=== PATIENT | female | born 1940 | race Caucasian/White ===

== ENCOUNTER 2017-10-05 18:33 | Emergency (ER) | payer MEDICARE ==
--- NOTE | 2017-10-05 19:39 | RAD ---
HISTORY: Chest pain COMPARISONS: November 01, 2011, CTA dated October 03, 2017 VIEWS: 1: frontal portable view of the chest at 7:24 PM FINDINGS: LINES AND TUBES: None. CARDIOMEDIASTINAL SILHOUETTE: The cardiomediastinal silhouette is normal for portable technique. PLEURA: The costophrenic angles are sharp. No pleural abnormalities are noted. LUNG PARENCHYMA: The lungs are clear. ABDOMEN: The upper abdomen is clear. There is no subphrenic gas. BONES AND SOFT TISSUES: No bone or soft tissue abnormalities are noted. IMPRESSION: NO ACTIVE CARDIOPULMONARY DISEASE.
[2017-10-05 19:44] LABS: ABS Basophils 0 10^3/ul (0-0.2); ABS Eosinophils 0.4 10^3/ul (0-0.6); ABS Lymphocytes 0.8 10^3/ul (1.0-4.8); ABS Monocytes 0.5 10^3/ul (0-0.8); ABS Neutrophils 1.5 10^3/ul (1.5-7.7); ABS Nucleated RBC 0 10^3/ul; Eosinophil % 11.4 % (0-6); Hematocrit 33 % (35-47); Hemoglobin 10.7 g/dl (12.0-16.0); Lymphocyte % 23.6 % (25-47); Mean Corpuscular HGB Conc 33 g/dl (31-36); Mean Corpuscular Hemoglobin 29 pg (27-31); Mean Corpuscular Volume 88 fL (80-97); Mean Platelet Volume 11 um3 (7.4-10.4); Nucleated Red Blood Cells % 0.3; Platelet Count 56 10^3/ul (150-450); Red Blood Count 3.74 10^6/ul (4.0-5.4); Red Cell Distribution Width 15 % (10.5-15); White Blood Count 3.2 10^3/ul (3.5-10.8)
[2017-10-05 19:47] LABS: EGFR Non-African American 93.3 (>60)
--- NOTE | 2017-10-05 20:34 | ED ---
Isabell Briseno Abhishek, scribed for Aldo Robin MD on 10/05/17 at 1904 . Shortness of Breath - HPI Summary HPI Summary: This patient is a 76 year old F presenting to [facility] accompanied by_ with a chief complaint of SOB since one week ago. PT was in theher PCPs office. The pt states her oxygen levels would drop and rise. PT received a CT with IV contrast. The patient rates the pain 0/10 in severity. Symptoms aggravated by ambulation. Symptoms alleviated by position and sitting down. Medications reviewed and reported. Allergies reviewed and reported. Patient reports decreased appetite, diarrhea, burning sensation in the legs, cough nonproductive, and wheezing. Patient denies fever. - History of Current Complaint Chief Complaint: EDChestPainROMI Time Seen by Provider: 10/05/17 18:52 Hx Obtained From: Patient Onset/Duration: Lasting Weeks Timing: Constant Current Severity: Moderate Dyspnea At: Rest Related History: Obesity - Risk Factors Pulmonary Embolism: Negative Cardiac: Negative, Hypertension - chest is limited in ability to inspire, no real chest pain to speak of . symptoms constant - Allergy/Home Medications Allergies/Adverse Reactions: Allergies Allergy/AdvReac Type Severity Reaction Status Date / Time clindamycin Allergy Intermediate Hives Verified 10/05/17 19:08 Penicillins Allergy Intermediate Hives Verified 10/05/17 19:08 PMH/Surg Hx/FS Hx/Imm Hx Endocrine/Hematology History: Reports: Hx Systemic Lupus Erythematosus Denies: Hx Anticoagulant Therapy, Hx Diabetes Cardiovascular History: Reports: Hx Hypercholesterolemia, Hx Hypertension, Other Cardiovascular Problems/Disorders - Hx HTN Denies: Hx Pacemaker/ICD Respiratory History: Reports: Hx Pneumonia - x2 last 6 weeks GI History: Reports: Other GI Disorders - Hx diverticulitis History: Denies: Hx Renal Disease Musculoskeletal History: Comment Only: Hx Rheumatoid Arthritis - TONY Sensory History: Reports: Hx Contacts or Glasses Denies: Hx Hearing Aid Opthamlomology History: Reports: Hx Contacts or Glasses Psychiatric History: Denies: Hx Panic Disorder - Cancer History Cancer Type, Location and Year: Multiple Myeloma Hx Chemotherapy: No Hx Radiation Therapy: No - Surgical History Surgery Procedure, Year, and Place: Hysterectomy , varicose vein surgery . CATARACTS Infectious Disease History: No Infectious Disease History: Reports: Hx Shingles - year ago, receiving medication currently, no open areas Denies: Traveled Outside the [place] in Last 30 Days - Social History Alcohol Use: None Substance Use Type: Reports: None Smoking Status (MU): Former Smoker Type: Cigarettes Amount Used/How Often: 1 PPD Length of Time of Smoking/Using Tobacco: 50 Years Have You Smoked in the Last Year: No Review of Systems Negative: Fever Eyes: Negative ENT: Negative Cardiovascular: Negative Respiratory: Other - wheezing Positive: Shortness Of Breath, Cough - nonproductive Gastrointestinal: Other - decreased appetite, Positive: Diarrhea Genitourinary: Negative Musculoskeletal: Other - burning sensation in the leg Skin: Negative Neurological: Negative Psychological: Normal All Other Systems Reviewed And Are Negative: Yes Physical Exam - Summary Physical Exam Summary: Appearance: Well-appearing, Well-nourished, Mild Pallor, No acute distress Skin: Warm, Dry, No rash Eyes: Normal, PERRL, EOMI, Sclera enteric ENT: Normal Neck: Supple, nontender, No JVD Respiratory: Clear to auscultation Cardiovascular: S1, S2, no murmur, no rub, no gallop Abdomen: Soft, nontender, no organomegaly Bowel sounds: Present Musculoskeletal: Normal, Strength/ROM Intact, no edema, pulses symmetrical, Extremities without edema Neurological: Normal, A&Ox3, cranial nerves II-XII WNL, follows commands, gait not tested, sensation intact to pin and light touch Psychiatric: affect normal, behavior appropriate, dressed appropriately, judgment intact Triage Information Reviewed: Yes Vital Signs On Initial Exam: Initial Vitals Temp Pulse Resp BP Pulse Ox 97.4 F 56 20 165/54 100 10/05/17 18:39 10/05/17 18:39 10/05/17 18:39 10/05/17 18:39 10/05/17 18:39 Vital Signs Reviewed: Yes Diagnostics - Vital Signs Vital Signs Temp Pulse Resp BP Pulse Ox 10/05/17 18:39 97.4 F 56 20 165/54 100 - Laboratory Lab Results: Lab Results 10/05/17 10/05/17 Range/Units 19:16 19:16 WBC 3.2 L (3.5-10.8) 10^3/ul RBC 3.74 L (4.0-5.4) 10^6/ul Hgb 10.7 L (12.0-16.0) g/dl Hct 33 L (35-47) % MCV 88 (80-97) fL MCH 29 (27-31) pg MCHC 33 (31-36) g/dl RDW 15 (10.5-15) % Plt Count 56 L (150-450) 10^3/ul MPV 11 H (7.4-10.4) um3 Neut % (Auto) 48.4 (38-83) % Lymph % (Auto) 23.6 L (25-47) % [place] % (Auto) 15.6 H (0-7) % Eos % (Auto) 11.4 H (0-6) % Baso % (Auto) 1.0 (0-2) % Absolute Neuts (auto) 1.5 (1.5-7.7) 10^3/ul Absolute Lymphs (auto) 0.8 L (1.0-4.8) 10^3/ul Absolute Monos (auto) 0.5 (0-0.8) 10^3/ul Absolute Eos (auto) 0.4 (0-0.6) 10^3/ul Absolute Basos (auto) 0 (0-0.2) 10^3/ul Absolute Nucleated RBC 0 10^3/ul Nucleated RBC % 0.3 Sodium 132 L (133-145) mmol/L Potassium 3.9 (3.5-5.0) mmol/L Chloride 105 (101-111) mmol/L Carbon Dioxide 23 (22-32) mmol/L Anion Gap 4 (2-11) mmol/L BUN 9 (6-24) mg/dL Creatinine 0.62 (0.51-0.95) mg/dL Est GFR ( Amer) 120.0 (>60) Est GFR (Non-Af Amer) 93.3 (>60) BUN/Creatinine Ratio 14.5 (8-20) Glucose 99 (70-100) mg/dL Calcium 7.6 L (8.6-10.3) mg/dL Total Bilirubin 0.40 (0.2-1.0) mg/dL AST 12 L (13-39) U/L ALT 16 (7-52) U/L Alkaline Phosphatase 61 (34-104) U/L Troponin I 0.00 (<0.04) ng/mL Total Protein 6.1 L (6.4-8.9) g/dL Albumin 2.9 L (3.2-5.2) g/dL Globulin 3.2 (2-4) g/dL Albumin/Globulin Ratio 0.9 L (1-3) Result Diagrams: 10/05/17 19:16 10/05/17 19:16 Lab Statement: Any lab studies that have been ordered have been reviewed, and results considered in the medical decision making process. - Radiology Chest X-ray Radiology Interpretation Completed By: Radiologist - CXR reveals, per radiologist, NO ACTIVE CARDIOPULMONARY DISEASE. ED physician has reviewed this radiology report and agrees. - EKG 1901 EKG Rhythm: Sinus Bradycardia - 56 bpm EKG Interpretation: An EKG reveals LBBB sinus bradycardia at 56 bpm (1901) Course/Dx - Course Course Of Treatment: The pt is a 76 y/o female with a chief complaint of SOB. Pt was BIBA and states that she has had symptoms for one week. She previously saw her PCP and received a CT scan.Symptoms aggravated by ambulation. Symptoms alleviated by position and sitting down. Medications reviewed and reported. Allergies reviewed and reported. Patient reports decreased appetite, diarrhea, burning sensation in the legs, cough nonproductive, and wheezing. Patient denies fever. In the [facility] the patient received an EKG and Chest X-ray. The pt will be discharged home. The dx will be anxiety and depression. - Diagnoses Provider Diagnoses: Anxiety about health Discharge - Discharge Plan Condition: Stable Disposition: HOME Prescriptions: clonazePAM [Clonazepam] 0.5 mg PO Q8HR PRN #30 tablet MDD 3 PRN Reason: Agitation/Anxiety Patient Education Materials: Anxiety (ED) Referrals: Aurelaino Orozco MD [Primary Care Provider] - The documentation as recorded by the Isabell nava Abhishek accurately reflects the service I personally performed and the decisions made by me, Aldo Robin MD.
[2017-10-05] MEDS ORDERED: clonazePAM TAB(*) 0.5 MG PO ONE (20:57)
[2017-10-05 21:10] VITALS: BP 144/56
== END 2017-10-05 21:11 | disposition home or self-care (01) ==
LOC: ED 18:33
DX: F41.8 Other specified anxiety disorders (principal); R06.02 Shortness of breath; Z87.891 Personal history of nicotine dependence; Z88.3 Allergy status to other anti-infective agents; Z88.0 Allergy status to penicillin
CPT/HCPCS: 36415; 71045; 80053; 84484; 85025; 85810; 93005; 99283; A9270-GY

== ENCOUNTER 2017-11-07 19:55 | Emergency (ER) | payer MEDICARE ==
[2017-11-07] MEDS ORDERED: Aspirin 81 mg CHEW TAB* 81 MG TAB.CHEW PO ONE (20:13)
[2017-11-07] MEDS ORDERED: NS 0.9% 1000 ML* 1,000 ML IV ONE (20:13)
[2017-11-07] MEDS ORDERED: Famotidine TAB* 20 MG PO ONE (20:15)
[2017-11-07] MEDS ORDERED: Ondansetron INJ* 2 MG/ML VIAL IV ONE (20:15)
[2017-11-07 20:53] LABS: ABS Basophils 0.1 10^3/ul (0-0.2); ABS Eosinophils 0 10^3/ul (0-0.6); ABS Lymphocytes 1.1 10^3/ul (1.0-4.8); ABS Monocytes 1.2 10^3/ul (0-0.8); ABS Neutrophils 2.3 10^3/ul (1.5-7.7); ABS Nucleated RBC 0 10^3/ul; Eosinophil % 0.5 % (0-6); Hematocrit 29 % (35-47); Hemoglobin 9.9 g/dl (12.0-16.0); Lymphocyte % 23.9 % (25-47); Mean Corpuscular HGB Conc 34 g/dl (31-36); Mean Corpuscular Hemoglobin 30 pg (27-31); Mean Corpuscular Volume 89 fL (80-97); Nucleated Red Blood Cells % 0; Platelet Count 234 10^3/ul (150-450); Red Blood Count 3.31 10^6/ul (4.0-5.4); Red Cell Distribution Width 16 % (10.5-15); White Blood Count 4.7 10^3/ul (3.5-10.8)
[2017-11-07 21:09] LABS: INR 1.04 (0.77-1.02)
--- NOTE | 2017-11-07 21:16 | RAD ---
Indication: Chest pain in the sternal region. Weakness. History of multiple myeloma. Comparison: October 05, 2017 Technique: Upright AP 2056 hours Report: No focal pulmonary lesion, compelling alveolar consolidation, pleural effusion, pneumothorax. Mild cardiomegaly. Unremarkable central pulmonary vasculature and mediastinal contours. IMPRESSION: Mild cardiomegaly. No compelling evidence for pulmonary edema.
[2017-11-07 21:23] LABS: EGFR Non-African American 111.9 (>60)
[2017-11-07] MEDS ORDERED: hydrALAZINE IV* 20 MG/ML VIAL IV SLOW PU ONE (21:38)
[2017-11-07 22:39] VITALS: BP 133/56
--- NOTE | 2017-11-08 02:26 | ED ---
Griffin Briseno Gabriel, scribed for Donavan Hughes MD on 11/07/17 at 2013 . HPI Chest Pain - HPI Summary HPI Summary: This patient is a 76 year old F presenting to [facility] with a chief complaint of left sided CP that began 12 hours ago. Pain began at rest. The patient rates the pain 5/10 in severity. Patient reports nausea, decreased appetite due to chemo, low graded fever of 99, ABD pain, cough, weakness, SOB, and diarrhea. Patient denies vomiting. Saw cardiology this week due to her oncologists suggestion. Pt had her last chemo treatment a week ago for her multiple myeloma. She has chronic hip pain due to this. History of peptic ulcer disease. Pt is just finishing her nucynta 50 mg. - History of Current Complaint Chief Complaint: EDChestPainROMI Time Seen by Provider: 11/07/17 20:03 Hx Obtained From: Patient Onset/Duration: Still Present Timing: Constant, Lasting Hours - 12 Initial Severity: Moderate Current Severity: Moderate Pain Intensity: 5 Pain Scale Used: 0-10 Numeric Chest Pain Location: Left Anterior Chest Pain Radiates: No Associated Signs and Symptoms: Positive: Negative - vomiting,, Other: - nausea , decreased appetite due to chemo, low graded fever of 99, - Allergy/Home Medications Allergies/Adverse Reactions: Allergies Allergy/AdvReac Type Severity Reaction Status Date / Time clindamycin Allergy Intermediate Hives Verified 10/05/17 19:08 Penicillins Allergy Intermediate Hives Verified 10/05/17 19:08 PMH/Surg Hx/FS Hx/Imm Hx Endocrine/Hematology History: Reports: Hx Systemic Lupus Erythematosus Denies: Hx Anticoagulant Therapy, Hx Diabetes Cardiovascular History: Reports: Hx Hypercholesterolemia, Hx Hypertension, Other Cardiovascular Problems/Disorders - Hx HTN Denies: Hx Pacemaker/ICD Respiratory History: Reports: Hx Pneumonia - x2 last 6 weeks GI History: Reports: Other GI Disorders - Hx diverticulitis History: Denies: Hx Renal Disease Musculoskeletal History: Comment Only: Hx Rheumatoid Arthritis - TONY Sensory History: Reports: Hx Contacts or Glasses Denies: Hx Hearing Aid Opthamlomology History: Reports: Hx Contacts or Glasses Psychiatric History: Denies: Hx Panic Disorder - Cancer History Cancer Type, Location and Year: Multiple Myeloma Hx Chemotherapy: No Hx Radiation Therapy: No - Surgical History Surgery Procedure, Year, and Place: Hysterectomy 1970s, varicose vein surgery . CATARACTS - Immunization History Date of Tetanus Vaccine: utd Date of Influenza Vaccine: fall 2016 Infectious Disease History: No Infectious Disease History: Reports: Hx Shingles - year ago, receiving medication currently, no open areas Denies: Traveled Outside the [place] in Last 30 Days - Family History Known Family History: Positive: Hypertension Negative: Respiratory Disease, Seizure Disorder - Social History Lives: With Family Alcohol Use: None Substance Use Type: Reports: None Smoking Status (MU): Former Smoker Type: Cigarettes Amount Used/How Often: 1 PPD Length of Time of Smoking/Using Tobacco: 50 Years Have You Smoked in the Last Year: No Review of Systems Positive: Fever, Other - decreased appetite Positive: Chest Pain Positive: Shortness Of Breath, Cough Positive: Abdominal Pain, Diarrhea, Nausea. Negative: Vomiting Positive: Weakness All Other Systems Reviewed And Are Negative: Yes Physical Exam - Summary Physical Exam Summary: Appearance: Well appearing, no pain distress Skin: warm, dry, reflects adequate perfusion Head/face: normal Eyes: EOMI, SCOTT ENT: mucus membranes are tacky Neck: supple, non-tender Respiratory: CTA, breath sounds present Cardiovascular: RRR, pulses symmetrical Abdomen: mild epigastria pain soft Bowel Sounds: present Musculoskeletal: mild TTP in anterior chest wall strength/ROM intact, 1+ edema in RLE, left ankle scar, 1-2+ edema in LLE. Neuro: normal, sensory motor intact, A&Ox3 Triage Information Reviewed: Yes Vital Signs On Initial Exam: Initial Vitals Temp Pulse Resp BP Pulse Ox 98.8 F 66 20 161/59 97 11/07/17 19:57 11/07/17 19:57 11/07/17 19:57 11/07/17 19:57 11/07/17 19:57 Vital Signs Reviewed: Yes Diagnostics - Vital Signs Vital Signs Temp Pulse Resp BP Pulse Ox 11/07/17 19:57 98.8 F 66 20 161/59 97 - Laboratory Lab Results: Lab Results 11/07/17 11/07/17 11/07/17 Range/Units 20:20 20:20 20:20 WBC 4.7 (3.5-10.8) 10^3/ul RBC 3.31 L (4.0-5.4) 10^6/ul Hgb 9.9 L (12.0-16.0) g/dl Hct 29 L (35-47) % MCV 89 (80-97) fL MCH 30 (27-31) pg MCHC 34 (31-36) g/dl RDW 16 H (10.5-15) % Plt Count 234 (150-450) 10^3/ul MPV 8.0 (7.4-10.4) um3 Neut % (Auto) 48.0 (38-83) % Lymph % (Auto) 23.9 L (25-47) % [place] % (Auto) 25.2 H (0-7) % Eos % (Auto) 0.5 (0-6) % Baso % (Auto) 2.4 H (0-2) % Absolute Neuts (auto) 2.3 (1.5-7.7) 10^3/ul Absolute Lymphs (auto) 1.1 (1.0-4.8) 10^3/ul Absolute Monos (auto) 1.2 H (0-0.8) 10^3/ul Absolute Eos (auto) 0 (0-0.6) 10^3/ul Absolute Basos (auto) 0.1 (0-0.2) 10^3/ul Absolute Nucleated RBC 0 10^3/ul Nucleated RBC % 0 INR (Anticoag Therapy) 1.04 H (0.77-1.02) APTT 29.7 (26.0-36.3) seconds Sodium 136 L (139-145) mmol/L Potassium 3.6 (3.5-5.0) mmol/L Chloride 104 (101-111) mmol/L Carbon Dioxide 26 (22-32) mmol/L Anion Gap 6 (2-11) mmol/L BUN 8 (6-24) mg/dL Creatinine 0.53 (0.51-0.95) mg/dL Est GFR ( Amer) 143.9 (>60) Est GFR (Non-Af Amer) 111.9 (>60) BUN/Creatinine Ratio 15.1 (8-20) Glucose 94 (70-100) mg/dL Lactic Acid (0.5-2.0) mmol/L Calcium 8.1 L (8.6-10.3) mg/dL Total Bilirubin 0.60 (0.2-1.0) mg/dL AST 11 L (13-39) U/L ALT 7 (7-52) U/L Alkaline Phosphatase 65 (34-104) U/L Total Creatine Kinase 29 (10-223) U/L Troponin I 0.01 (<0.04) ng/mL B-Natriuretic Peptide ( - 100) pg/mL Total Protein 5.5 L (6.4-8.9) g/dL Albumin 3.2 (3.2-5.2) g/dL Globulin 2.3 (2-4) g/dL Albumin/Globulin Ratio 1.4 (1-3) Lipase 16 (11.0-82.0) U/L TSH 3.39 (0.34-5.60) mcIU/mL 11/07/17 11/07/17 Range/Units 20:20 20:26 WBC (3.5-10.8) 10^3/ul RBC (4.0-5.4) 10^6/ul Hgb (12.0-16.0) g/dl Hct (35-47) % MCV (80-97) fL MCH (27-31) pg MCHC (31-36) g/dl RDW (10.5-15) % Plt Count (150-450) 10^3/ul MPV (7.4-10.4) um3 Neut % (Auto) (38-83) % Lymph % (Auto) (25-47) % [place] % (Auto) (0-7) % Eos % (Auto) (0-6) % Baso % (Auto) (0-2) % Absolute Neuts (auto) (1.5-7.7) 10^3/ul Absolute Lymphs (auto) (1.0-4.8) 10^3/ul Absolute Monos (auto) (0-0.8) 10^3/ul Absolute Eos (auto) (0-0.6) 10^3/ul Absolute Basos (auto) (0-0.2) 10^3/ul Absolute Nucleated RBC 10^3/ul Nucleated RBC % INR (Anticoag Therapy) (0.77-1.02) APTT (26.0-36.3) seconds Sodium (139-145) mmol/L Potassium (3.5-5.0) mmol/L Chloride (101-111) mmol/L Carbon Dioxide (22-32) mmol/L Anion Gap (2-11) mmol/L BUN (6-24) mg/dL Creatinine (0.51-0.95) mg/dL Est GFR ( Amer) (>60) Est GFR (Non-Af Amer) (>60) BUN/Creatinine Ratio (8-20) Glucose (70-100) mg/dL Lactic Acid 0.6 (0.5-2.0) mmol/L Calcium (8.6-10.3) mg/dL Total Bilirubin (0.2-1.0) mg/dL AST (13-39) U/L ALT (7-52) U/L Alkaline Phosphatase (34-104) U/L Total Creatine Kinase (10-223) U/L Troponin I (<0.04) ng/mL B-Natriuretic Peptide 289 H ( - 100) pg/mL Total Protein (6.4-8.9) g/dL Albumin (3.2-5.2) g/dL Globulin (2-4) g/dL Albumin/Globulin Ratio (1-3) Lipase (11.0-82.0) U/L TSH (0.34-5.60) mcIU/mL Result Diagrams: 11/07/17 20:20 18 20:20 Lab Statement: Any lab studies that have been ordered have been reviewed, and results considered in the medical decision making process. - Radiology CXR Radiology Interpretation Completed By: Radiologist - Mild cardiomegaly. No compelling evidence for pulmonary edema. Dr. Hughes has reviewed this report. - EKG 20:01 Cardiac Rate: NL EKG Rhythm: Sinus Rhythm - at [address] Segment: Non-Specific EKG Interpretation: nml axis, incomplete LBBB Re-Evaluation - Re-Evaluation First Eval Re-Evaluation Time: 21:41 Change: Improved Comment: The patient is feeling better. I discussed possible admission with the patient. Second Eval Re-Evaluation Time: 21:50 Change: Improved Comment: The patient feels better and would like to go home. Chest Pain Course/Dx - Course Course Of Treatment: Pt with mult myeloma 1wk out from chemo. Not eating/ drinking well due to nausea. CP is easily reproducible with palpation. DDimer neg. Pt hydrated and nausea tx and she feels immensely better. I have offered her admission which she refused. HEART score 3. I feel this is most likely a complication of her chemo and more related to her mild dehydration and the associated nausea. Will tx with pepcid and zofran prn. F/U closely pmd/oncology. - Chest Pain Differential Diagnosis/HQI/PQRI: Acute MA, ACS, Angina, CHF, GI Disease, Lower Respiratory Infection, Pulmonary Edema, Pulmonary Embolism - Diagnoses Provider Diagnoses: Atypical chest pain, Dehydration, Multiple myeloma, Chemotherapy-induced nausea Discharge - Sign-Out/Discharge Documenting (check all that apply): Discharge - Discharge Plan Condition: Good Disposition: HOME Prescriptions: Famotidine TAB* [Pepcid 20 MG TAB*] 20 mg PO BID #30 tab Ondansetron ODT TAB* [Zofran 4 MG Odt TAB*] 4 mg PO Q8H PRN #12 tab.odt PRN Reason: Nausea Patient Education Materials: Chest Pain (ED) Referrals: Aureliano Orozco MD [Primary Care Provider] - Fran Hernandez MD [Medical Doctor] - Additional Instructions: Drink plenty of water -- stay well hydrated. Return if repeat chest pain, worse , new symptoms or other concerns as discussed. - Billing Disposition and Condition Condition: GOOD Disposition: HOME The documentation as recorded by the Griffin nava Gabriel accurately reflects the service I personally performed and the decisions made by me, Donavan Hughes MD.
== END 2017-11-07 22:39 | disposition home or self-care (01) ==
LOC: ED 19:55
DX: R07.89 Other chest pain (principal); E86.0 Dehydration; C90.00 Multiple myeloma not having achieved remission; R11.0 Nausea; R50.9 Fever, unspecified; I51.7 Cardiomegaly; I44.7 Left bundle-branch block, unspecified; M32.9 Systemic lupus erythematosus, unspecified; I10 Essential (primary) hypertension; E78.00 Pure hypercholesterolemia, unspecified; K57.92 Diverticulitis of intestine, part unspecified, without perforation or abscess without bleeding; Z88.1 Allergy status to other antibiotic agents; Z88.0 Allergy status to penicillin; Z87.891 Personal history of nicotine dependence
CPT/HCPCS: 36415; 71045; 80053; 82550; 83605; 83690; 83880; 84443; 84484; 85025; 85610; 85730; 87040; 93005; 96374; 96375; 99283; A9270-GY; J0360; J2405

== ENCOUNTER 2017-11-08 05:14 | Observation (INO) | payer MEDICARE ==
[2017-11-08] MEDS ORDERED: Aspirin 81 mg CHEW TAB* 81 MG TAB.CHEW PO ONE (05:48)
[2017-11-08] MEDS ORDERED: Nitroglycerin TAB 0.4 MG* 0.4 MG TAB SL ONE (05:48)
[2017-11-08] MEDS ORDERED: Labetalol IV* 5 MG/ML 20 ML VIAL IV PUSH ONE (05:48)
--- NOTE | 2017-11-08 07:14 | ED ---
Griffin Briseno Gabriel, scribed for Donavan Hughes MD on 11/08/17 at 0605 . HPI Chest Pain - HPI Summary HPI Summary: This patient is a 76 year old F presenting to [facility] accompanied by her with a chief complaint of CP. Pt went to bed and slept for an hour when she awoke she still had chest pressure . The patient rates the pain 5/10 in severity. Patient reports nausea. Patient denies SOB, neck pain, jaw pain, and vomiting. Pt was seen in the ED earlier tonight. The patient was offered admission earlier but stated she felt well enough to return home. - History of Current Complaint Chief Complaint: EDChestPainROMI Time Seen by Provider: 11/08/17 05:35 Hx Obtained From: Patient Onset/Duration: Still Present Timing: Constant Initial Severity: Moderate Current Severity: Moderate Pain Intensity: 5 Pain Scale Used: 0-10 Numeric Chest Pain Location: Diffuse - Allergy/Home Medications Allergies/Adverse Reactions: Allergies Allergy/AdvReac Type Severity Reaction Status Date / Time clindamycin Allergy Intermediate Hives Verified 11/08/17 05:33 Penicillins Allergy Intermediate Hives Verified 11/08/17 05:33 PMH/Surg Hx/FS Hx/Imm Hx Endocrine/Hematology History: Reports: Hx Systemic Lupus Erythematosus Denies: Hx Anticoagulant Therapy, Hx Diabetes Cardiovascular History: Reports: Hx Hypercholesterolemia, Hx Hypertension, Other Cardiovascular Problems/Disorders - Hx HTN Denies: Hx Pacemaker/ICD Respiratory History: Reports: Hx Pneumonia - x2 last 6 weeks GI History: Reports: Other GI Disorders - Hx diverticulitis History: Denies: Hx Renal Disease Musculoskeletal History: Comment Only: Hx Rheumatoid Arthritis - TONY Sensory History: Reports: Hx Contacts or Glasses Denies: Hx Hearing Aid Opthamlomology History: Reports: Hx Contacts or Glasses Psychiatric History: Denies: Hx Panic Disorder - Cancer History Cancer Type, Location and Year: Multiple Myeloma Hx Chemotherapy: No Hx Radiation Therapy: No - Surgical History Surgery Procedure, Year, and Place: Hysterectomy , varicose vein surgery . CATARACTS - Immunization History Date of Tetanus Vaccine: utd Date of Influenza Vaccine: fall 2016 Infectious Disease History: No Infectious Disease History: Reports: Hx Shingles - year ago, receiving medication currently, no open areas Denies: Traveled Outside the [place] in Last 30 Days - Family History Known Family History: Positive: Hypertension Negative: Respiratory Disease, Seizure Disorder - Social History Lives: With Family Alcohol Use: None Substance Use Type: Reports: None Hx Tobacco Use: No Smoking Status (MU): Former Smoker Type: Cigarettes Amount Used/How Often: 1 PPD Length of Time of Smoking/Using Tobacco: 50 Years Have You Smoked in the Last Year: No Review of Systems Positive: Chest Pain Negative: Shortness Of Breath Positive: Nausea. Negative: Vomiting Musculoskeletal: Negative - neck pain All Other Systems Reviewed And Are Negative: Yes Physical Exam - Summary Physical Exam Summary: Appearance: Well appearing, no pain distress Skin: warm, dry, reflects adequate perfusion Head/face: normal Eyes: EOMI, SCOTT ENT: normal Neck: supple, non-tender Respiratory: CTA, breath sounds present Cardiovascular: RRR, pulses symmetrical, no murmur Abdomen: non-tender, soft Bowel Sounds: present Musculoskeletal: normal, strength/ROM intact Neuro: normal, sensory motor intact, A&Ox3 Triage Information Reviewed: Yes Vital Signs On Initial Exam: Initial Vitals Temp Pulse Resp BP Pulse Ox 98.2 F 71 18 186/84 96 11/08/17 05:32 11/08/17 05:32 11/08/17 05:32 11/08/17 05:32 11/08/17 05:32 Vital Signs Reviewed: Yes Diagnostics - Vital Signs Vital Signs Temp Pulse Resp BP Pulse Ox 11/08/17 05:32 98.2 F 71 18 186/84 96 - Laboratory Lab Statement: Any lab studies that have been ordered have been reviewed, and results considered in the medical decision making process. - EKG 0532 Cardiac Rate: NL EKG Rhythm: Sinus Rhythm - at [address] Segment: Non-Specific EKG Interpretation: nml axis, incomplete LBBB, prolonged Qtc EKG Comparison: No Significant Change - unchanged from earlier today Chest Pain Course/Dx - Course Course Of Treatment: pt with 2nd presentation of the night. CP described as pressure and HTN. No SOB or hypoxia. O2 sat 98% RA currently. Has risk factor of active CA. Pt had wished to d/c earlier in my shift. Returns, plan to admit. Labs pending. Sign out to Dr. Stack. - Diagnoses Provider Diagnoses: Multiple myeloma, Chest pain - Provider Notifications Discussed Care Of Patient With: Archie Dukes Time Discussed With Above Provider: 06:50 Instructed by Provider To: Admit As Inpatient - He states that usually Dr. Jennings will admit his patients but if he does not then Dr. Dukes will accept the patient for admission. Discharge - Sign-Out/Discharge Documenting (check all that apply): Sign-Out Patient Signing out patient TO: Ramiro Stack - awaiting blood work - Discharge Plan Condition: Fair Discharge Disposition Comment: Sign out to Dr Stack at 7am Referrals: Aureliano Orozco MD [Primary Care Provider] - - Billing Disposition and Condition Condition: FAIR The documentation as recorded by the Griffin nava Gabriel accurately reflects the service I personally performed and the decisions made by me, Donavan Hughes MD.
[2017-11-08] MEDS ORDERED: Ondansetron INJ* 2 MG/ML VIAL IV ONE (08:11)
[2017-11-08] MEDS ORDERED: Ondansetron INJ* 2 MG/ML VIAL ONE (08:12)
[2017-11-08] MEDS ORDERED: Iodixanol* (CONTRAST) 320 MG/ML 100 ML SDV IV ONE (08:17)
--- NOTE | 2017-11-08 09:45 | RAD ---
INDICATION: Chest pain and shortness of breath. COMPARISON: Comparison is made with a prior CT of the chest from October 03, 2017 and a prior chest x-ray study from November 07, 2017. TECHNIQUE: A CT angiogram of the chest was performed with intravenous following intravenous injection of 80 ml of Visipaque 320 nonionic contrast. Contiguous axial sections were obtained from the lung apices through the lung bases. Images were reconstructed in the coronal and sagittal planes. FINDINGS: There is relatively homogeneous opacification of the pulmonary arteries. No intraluminal filling defect or pulmonary embolism is seen. The heart is within normal limits in size. No pericardial effusion is present. There is mild ectasia of the descending thoracic aorta with mild calcific plaque present. There is homogeneous opacification of the aorta. No significant enlarged mediastinal or hilar lymph nodes are seen. There are several small subcentimeter pulmonary nodules. The largest is located within the left upper lobe best seen on image #25 of 62 and unchanged from the prior study. There is mild dependent bilateral lower lobe subsegmental atelectasis. No pleural effusion is seen. No significant focal osseous abnormality is seen. IMPRESSION: 1. NO EVIDENCE FOR PULMONARY EMBOLISM. 2. THERE ARE SEVERAL SMALL BILATERAL PULMONARY NODULES WHICH ARE UNCHANGED FROM THE RECENT PRIOR STUDY. RECOMMEND A FOLLOW-UP NONCONTRAST CT OF THE CHEST IN 3 MONTHS TIME FOR FURTHER EVALUATION.
[2017-11-08] MEDS ORDERED: oxyCODONE/Acetamin 5/325 MG* TAB PO PRN (11:44)
[2017-11-08] MEDS ORDERED: Acetaminophen TAB* 325 MG PO PRN (11:44)
[2017-11-08] MEDS ORDERED: oxyCODONE/Acetamin 5/325 MG* TAB PO ONE (11:44)
[2017-11-08] MEDS ORDERED: clonazePAM TAB(*) 0.5 MG PO PRN (11:49)
[2017-11-08] MEDS ORDERED: Prochlorperazine TAB* 10 MG PO PRN (11:52)
[2017-11-08] MEDS: Omeprazole CAP* 20 MG PO SCH (14:01)
[2017-11-08] MEDS: Lisinopril TAB* 5 MG PO SCH (14:02)
[2017-11-08] MEDS: Gabapentin CAP(*) 300 MG PO SCH ×2 (14:02→23:11)
[2017-11-08] MEDS: Enoxaparin(*) 40 MG/0.4 ML SYR SUBCUT SCH (14:02)
[2017-11-08] MEDS: Citalopram TAB* 20 MG PO SCH (14:03)
[2017-11-08] MEDS: Nystatin SUSPENSION* 100000 UNITS/ML 5 ML UDC SWISH SWAL SCH ×3 (14:05→23:16)
[2017-11-08] MEDS: Mycophenolate Mofetil TAB(*) 500 MG PO SCH ×2 (14:05→23:13)
[2017-11-08] MEDS: Hydroxychloroquine TAB* 200 MG PO SCH ×2 (14:05→23:13)
[2017-11-08] MEDS: NS 0.9% 1000 ML* 1,000 ML IV SCH ×2 (14:09→23:43)
--- NOTE | 2017-11-08 14:32 | HP ---
CC: Dr. Aureliano Orozco; Dr. Thacker; Dr. Hernandez * ADMISSION HISTORY AND PHYSICAL: DATE OF ADMISSION: 11/08/17 PRIMARY CARE PROVIDER: Aureliano Orozco MD PRIMARY ONCOLOGIST: Fran Hernandez MD SHOE COBBLER: Bladimir Thacker MD ATTENDING PHYSICIAN: Flavio Arias MD * (DICTATED BY ELVIA CLINTON) ADMITTING PROVIDER: ELVIA Clinton CHIEF COMPLAINT: Generalized malaise, nausea, diarrhea, and chest pressure. HISTORY OF PRESENT ILLNESS: This is a 76-year-old female with lupus and smoldering myeloma who completed two cycles of RVD, which since been held due to grade 3 neuropathy who presented to the emergency department on two occasions over the last two days with some generalized complaints. The patient states that she has been feeling extremely fatigued and weak with chronic feeling of nausea and has really been unable to eat or drink anything for the last couple of weeks. She has been taking Zofran and Compazine as prescribed without a significant improvement. She also notes that she has been having diarrhea, which seems to be getting progressively worse, but started with her treatment. She denies any abdominal pain or cramping. No blood in the stool noted. For the last several weeks, she has been having intermittent chest pressure for which she was referred to Cardiology and saw Dr. Thacker this past Saturday on November 04. He had recommended an echocardiogram, Lexiscan, 24- hour Holter. The patient states that she has to hold off on this testing as she felt that things were just a little too busy right now and her had upcoming eye surgery and wished to defer testing until after that was completed. When the patient was seen in the emergency department yesterday, an EKG was completed as well as serial troponins all of which were negative. The patient was subsequently discharged to home but returned again overnight last night with similar symptoms of chest pressure noted to be significantly hypertensive with generalized feelings of malaise. The patient states that she did experience a fall yesterday on to her knees. She did not hit her head or lose consciousness. She states that her legs are simply "rubber" which has been precipitating falls and feelings of imbalance. She has not had any fevers at home. She states her maximum temperature has been about 99 degrees Fahrenheit. She does have a chronic cough and reports some intermittent shortness of breath, but unable to state when those symptoms generally occur, but seems to be with activity. She denies any orthopnea. She does have some trace edema in her legs chronically. None worse in the last couple of weeks. She does complain of some stool incontinence mainly that she cannot go to the restroom fast enough when she has the sensation that she needs to have diarrhea. Again as noted above her feelings of diarrhea and nausea have not improved since discontinuing treatment, last cycle was approximately 2 weeks ago. The patient was last seen by Dr. Hernandez on October 31. At that point, she was complaining of similar symptoms of generalized malaise, weakness, nausea, and chest pressure. It was at that time she was referred to Cardiology. Myeloma labs were completed at that time as well as a B12 due to her complaints of neuropathy. Her B12 was normal and her light chains were back to within normal limits as well. Plan at that time was to hold therapy given her progressive neuropathy and generalized deconditioning. The plan was to hold therapy for at least 3 weeks and consider resuming therapy at that time depending on her general functional status. PAST MEDICAL HISTORY: 1. 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 2. Lupus. 3. Depression. 4. Hypertension. HOME MEDICATIONS: 1. Acetaminophen 650 mg p.o. q.6 hours as needed for pain or fever. 2. Acyclovir 800 mg p.o. twice daily. 3. Atenolol 25 mg p.o. daily. 4. Celexa 20 mg p.o. daily. 5. Clonazepam 0.5 mg p.o. every 8 hours as needed for anxiety. 6. Gabapentin 300 to 600 mg p.o. three times daily. 7. Plaquenil 200 mg p.o. twice daily. 8. Lisinopril 5 mg p.o. daily. 9. Mycophenolate 500 mg p.o. twice daily. 10. Omeprazole 20 mg p.o. daily. 11. Zofran 4 mg p.o. q.8 hours as needed for nausea and vomiting. 12. Simvastatin 20 mg p.o. at bedtime. SOCIAL HISTORY: The patient is . Remote smoking history. Lives with her and is retired. REVIEW OF SYSTEMS: Full review of systems completed. Negative except as noted in HPI. PHYSICAL EXAMINATION GENERAL: This is a 76-year-old female, lying in hospital bed who appears generally fatigued, but alert and cooperative and in no acute distress. VITAL SIGNS: Temperature 98.2 degrees Fahrenheit, pulse 78 beats per minute, respiratory rate 17, oxygen saturation 95% on room air, blood pressure 173/71 mmHg. HEENT: Head is normocephalic, atraumatic. Mucous membranes are mildly dry and there is a thin white coating on her tongue noted. NECK: Supple. Free of lymphadenopathy. RESPIRATORY: Lungs are clear to auscultation without wheezes, crackles, or rhonchi. CARDIOVASCULAR: Heart has a regular rate and rhythm. No significant murmurs appreciated. ABDOMEN: Soft, but somewhat diffusely tender to palpation. EXTREMITIES: Trace edema. SKIN: No concerning rashes or lesions. PSYCH: The patient is alert and is appropriately oriented. LABORATORY EVALUATION: CBCs from 11/07/17 shows white blood cell count of 4700 , hemoglobin of 9.9, and platelet count of 234,000. Comprehensive metabolic panel from 11/07/17 is essentially normal and shows a sodium of 136 mmol/L, potassium 3.6, bicarb of 26, BUN 8, creatinine 0.53. Transaminases within normal limits. Lactic acid normal at 0.6. Troponin negative x4 at this time. D-dimer positive at 612. Review of light chains and B12 from 10/31/17, as noted above in HPI. IMAGIN. CTA of the chest shows no evidence of PE or aneurysm. She does have small bilateral pulmonary nodules which are unchanged from prior study and recommend three months followup. 2. Chest x-ray shows mild cardiomegaly. No evidence of pulmonary edema. 3. EKG shows sinus rhythm. Normal axis. No ST segment changes. ASSESSMENT AND PLAN: This is a 76-year-old female with a smoldering myeloma status post two cycles of RVD as well as lupus, who presents with complaints of intractable nausea, worsening diarrhea, and chest pressure which seems to be somewhat chronic in nature. The patient states that she has been unable to tolerate anything by mouth of significance and will therefore be admitted for a period of observation for hydration and appropriate symptoms control. 1. Intractable nausea - the patient does have noted thrush on her tongue, maybe she also has an associated candidal esophagitis and we will start nystatin swish and swallow, see if this helps to improve her symptoms. We will plan to rehydrate with normal saline and p.r.n. antiemetics. Then start with clear liquid diet and advance as tolerated. 2. Diarrhea - the patient reports to have started with treatment, but seems to have accelerated despite treatment held for the last two weeks. She does have some diffuse tenderness to palpation. She has not had any imaging of her abdomen, but just received IV contrast for CTA of the chest and contrasted abdominal study will have to be held for a minimum of 48 hours. In the meantime , we will check stool for C. diff. If negative and she continues to complain of diarrhea and abdominal tenderness, then a contrasted CT of the abdomen should be completed tomorrow. No empiric treatment as she is afebrile. 3. Neuropathy - this is related to her Velcade therapy, which has been held and hopefully will improve. We plan to continue gabapentin for pain control. 4. Smoldering myeloma - status post two cycles of RVD which has been held for grade 3 neuropathy at this time with plans to reconsider resuming therapy at least in another one week's time. 5. Chest pressure - the patient has been complaining of this associated with hypertension for the last couple of weeks at least. She was seen by feed blender on an outpatient basis earlier this week who recommended Holter, echocardiogram, and Lexiscan. No evidence of acute coronary syndrome as noted by no acute changes on EKG or elevated troponin. We will plan to complete echocardiogram. Stress testing will likely not be possible just due to the timing of her admission, but can be completed on an outpatient basis if still deemed necessary. No evidence of decompensated heart failure based on clinical exam findings. 6. Hypertension - unclear how much of her home medications she has actually been taking given her nausea. We will plan to continue with her prescribed home medications and monitor blood pressure closely. If she remains significantly hypertensive, we will add additional medications to control this. Her CTA does not indicate presence of pulmonary embolus or aneurysm that would potentially explain her symptoms. 7. Lupus - continue CellCept and Plaquenil. 8. Depression - continue Celexa. 9. Code status is full. 10. DVT prophylaxis, subcu Lovenox. 11. Healthcare proxy is her . DISPOSITION: The patient is being admitted for period of observation for intractable nausea. Anticipated length of stay to be one midnight. ELVIA CLINTON [id number]/CPS #: [id number] MTDD
--- NOTE | 2017-11-08 16:25 | ECHO ---
Patient: SYLVIA FAJARDO [facility] Rec#: [id number] : 1940 Date: 11/08/2017 Age: 76y Height: 162.6 cm / 64.0 in Weight: 83.5 kg / 184.0 lbs Sex: F BSA: 1.9 Room#: 440 Admit Date#: 11/08/2017 Type: Inpatient Referring: Jatin Roberts Reading: Raymundo Ulloa MD Art Consultant: Ciara Hall RN RDCS CC: Aureliano Orozco MD Transthoracic Echocardiogram Indication: Chest pain BP: 149/63 HR: 70 Rhythm: NSR Findings History: HTN, HLD, multiple myeloma, chemotherapy, SLE, former smoker Technical Comments: The study quality is fair. The study is technically limited due to patient body habitus. The study was technically limited due to the patient's inability to lay in the left lateral decubitus position. Completed at 1550. Left Ventricle: The left ventricular chamber size is normal. Mild to moderate concentric left ventricular hypertrophy is observed. Global left ventricular wall motion and contractility are within normal limits. The left ventricle appears hyperdynamic. The estimated ejection fraction is greater than 65%. Abnormal left ventricular diastolic filling is observed, consistent with impaired relaxation. Left Atrium: The left atrium is mildly dilated. Right Ventricle: The right ventricular chamber size and systolic function are within normal limits. Right Atrium: The right atrium is mildly dilated. Aortic Valve: The aortic valve is trileaflet. The aortic valve leaflets are mildly thickened. Systolic excursion of the left coronary cusp is reduced. There is no evidence of aortic regurgitation. There is mild aortic stenosis. The mean gradient of the aortic valve is 8.5 mmHg. The peak instantaneous gradient of the aortic valve is 17 mmHg. The aortic valve area, by peak velocities, is calculated at 1.8 cm2. The aortic valve area, by VTI's, is calculated at 2.1 cm2. The highest aortic valve velocity was obtained with the standard probe from the A3C view. Mitral Valve: Mild mitral annular calcification present. The mitral valve leaflets are mildly thickened. There is trace to mild mitral regurgitation. There is no evidence of mitral stenosis. Tricuspid Valve: The tricuspid valve leaflets are normal. There is trace tricuspid regurgitation. There is evidence of mild pulmonary hypertension. There is no tricuspid stenosis. Pulmonic Valve: The pulmonic valve appears normal. There is a trace pulmonic regurgitation. There is no pulmonic stenosis. Pericardium: There is no significant pericardial effusion. A pericardial fat pad is visualized. Aorta: There is no dilatation of the ascending aorta. There is no dilatation of the aortic arch. There is no dilation of the aortic root. Pulmonary Artery: The main pulmonary artery is not well visualized. Venous: The venous system is not well visualized. The inferior vena cava is not visualized. Summary: There was not any prior study for comparison. Conclusions Mild to moderate concentric left ventricular hypertrophy is observed. The left ventricle appears hyperdynamic. The estimated ejection fraction is greater than 65%. Abnormal left ventricular diastolic filling is observed, consistent with impaired relaxation. The left atrium is mildly dilated. There is mild aortic stenosis. There is trace to mild mitral regurgitation. There is trace tricuspid regurgitation. There is evidence of mild pulmonary hypertension. Measurements Name Value Normal Range RVDdMajor (2D) 3.6 cm (2.2 - 4.4) RAd ISD 4CH 5.6 cm (3.4 - 4.9) RA (A4C)W 3.7 cm (2.9 - 4.6) IVSd (2D) 1.3 cm (0.6 - 1) LVPWd (2D) 1.2 cm (0.6 - 1) LVIDd (2D) 4.5 cm (3.6 - 5.4) LVIDs (2D) 2.9 cm - LV FS (2D) 36 % (25 - 45) Aortic Annulus 2 cm (1.4 - 2.6) Ao root diameter (2D) 3.1 cm (2.1 - 3.5) Ascending Ao 3.4 cm (2.1 - 3.4) Aortic arch 2.1 cm (1.8 - 3.4) LA dimension (AP) 2D 4.1 cm (2.3 - 3.8) LAd ISD 4CH 5.6 cm (2.9 - 5.3) LA ISD 4CH W 5.3 cm (2.5 - 4.5) Name Value Normal Range LA ESV SP 4CH (A/L) 91 ml - LA ESV SP 2CH (A/L) 53 ml - LA ESV BP (A/L) 72 ml - LA ESV BP (A/L) index 38.1 ml/m2 - LA ESV SP 4CH (MOD) 87 ml - LA ESV SP 2CH (MOD) 50 ml - Name Value Normal Range MV E-wave Vmax 0.74 m/sec - MV deceleration time 250 msec - MV A-wave Vmax 0.92 m/sec - MV E:A ratio 0.8 ratio - LV septal e' Vmax 0.04 m/sec - LV lateral e' Vmax 0.06 m/sec - LV E:e' septal ratio 18.5 ratio - LV E:e' lateral ratio 12.3 ratio - Name Value Normal Range AV Vmax 2.1 m/sec - AV VTI 40.2 cm - AV peak gradient 17 mmHg - AV mean gradient 8.5 mmHg - LVOT diameter 2 cm - LVOT Vmax 1.2 m/sec - LVOT VTI 27.1 cm - LVOT peak gradient 6.1 mmHg - LVOT mean gradient 3.1 mmHg - DOI (VTI) 0.66 ratio - DOI (Vmax) 0.57 ratio - GABRIEL (continuity Vmax) 1.8 cm2 - GABRIEL (continuity VTI) 2.1 cm2 - FRANCIS Vmax 0.87 m/sec - Name Value Normal Range TR Vmax 2.8 m/sec - TR peak gradient 31 mmHg - RAP 8 mmHg - RVSP 39 mmHg - Name Value Normal Range PV Vmax 1.1 m/sec -
--- NOTE | 2017-11-08 16:48 | ED ---
James Briseno Angela, scribed for Ramiro Stack MD on 11/08/17 at 0812 . Progress - Progress Note Progress Note: This pt was signed out by Dr. Hughes, pending disposition, awaiting lab results. Chest CTA, as read by radiologist IMPRESSION: 1. No evidence for pulmonary embolism. 2. There are several small bilateral pulmonary nodules which are unchanged from the recent prior study. Recommend a follow-up noncontrast CT of the chest in 3 months time for further evaluation. Dr. Stack has reviewed this radiology report. Course/Dx - Course Course Of Treatment: The pt was signed out by Dr. Hughes to follow up blood work results. Test results show increased D-dimer of 612, BNP of 335, and troponin of 0.01. I discussed the case with Dr. Arias, oncologist, and he recommends to do chest CTA to rule out PE. Dr. Arias accepted the pt for admission to his services for further work up and management. The chest CTA results will be followed up by Dr. Arias. Pt is hemodynamically stable, alert and oriented x3. - Diagnoses Provider Diagnoses: Chest pain, Shortness of breath - Provider Notifications Discussed Care Of Patient With: Flavio Arias Time Discussed With Above Provider: 08:07 Instructed by Provider To: Admit As Inpatient - I discussed pt care with Dr. Arias, oncologist, who has accepted the pt for admission. Dr. Arias recommends a chest CTA. Discharge - Sign-Out/Discharge Documenting (check all that apply): Discharge - [place] [facility] [place] Receiving patient FROM: Dnoavan Hughes - Discharge Plan Condition: Stable Disposition: ADMITTED TO [facility] Referrals: Aureliano Orozco MD [Primary Care Provider] - The documentation as recorded by the James nava Angela accurately reflects the service I personally performed and the decisions made by , Ramiro Stack MD.
[2017-11-08] MEDS: Ondansetron INJ* 2 MG/ML VIAL IV PRN ×2 (18:54→23:40)
[2017-11-09 05:48] LABS: ABS Basophils 0.1 10^3/ul (0-0.2); ABS Eosinophils 0 10^3/ul (0-0.6); ABS Lymphocytes 0.7 10^3/ul (1.0-4.8); ABS Monocytes 0.8 10^3/ul (0-0.8); ABS Neutrophils 1.8 10^3/ul (1.5-7.7); ABS Nucleated RBC 0 10^3/ul; Eosinophil % 0.5 % (0-6); Hematocrit 26 % (35-47); Hemoglobin 8.8 g/dl (12.0-16.0); Lymphocyte % 19.1 % (25-47); Mean Corpuscular HGB Conc 33 g/dl (31-36); Mean Corpuscular Hemoglobin 29 pg (27-31); Mean Corpuscular Volume 88 fL (80-97); Mean Platelet Volume 7.8 um3 (7.4-10.4); Nucleated Red Blood Cells % 0; Platelet Count 207 10^3/ul (150-450); Red Blood Count 2.99 10^6/ul (4.0-5.4); Red Cell Distribution Width 16 % (10.5-15); White Blood Count 3.4 10^3/ul (3.5-10.8)
[2017-11-09 06:07] LABS: EGFR Non-African American 125.4 (>60)
[2017-11-09] MEDS ORDERED: Atenolol TAB* 25 MG PO SCH (09:00)
[2017-11-09] MEDS: NS 0.9% 1000 ML* 1,000 ML IV SCH (09:57)
[2017-11-09] MEDS: Hydroxychloroquine TAB* 200 MG PO SCH (09:59)
[2017-11-09] MEDS: Omeprazole CAP* 20 MG PO SCH (09:59)
[2017-11-09] MEDS: Nystatin SUSPENSION* 100000 UNITS/ML 5 ML UDC SWISH SWAL SCH ×2 (10:00→13:57)
[2017-11-09] MEDS: Gabapentin CAP(*) 300 MG PO SCH ×2 (10:00→13:55)
[2017-11-09] MEDS: Lisinopril TAB* 5 MG PO SCH (10:00)
[2017-11-09] MEDS: Citalopram TAB* 20 MG PO SCH (10:00)
[2017-11-09] MEDS: Mycophenolate Mofetil TAB(*) 500 MG PO SCH (10:01)
[2017-11-09] MEDS: Enoxaparin(*) 40 MG/0.4 ML SYR SUBCUT SCH (13:56)
[2017-11-09 16:18] VITALS: BP 158/65
== END 2017-11-09 16:20 | disposition home or self-care (01) ==
LOC: ED 05:14 → MEDTELE 11:44
PROVIDERS: ADMIT Internal Medicine Hematology & Oncology; ATTEND Internal Medicine Hematology & Oncology
DX: R11.0 Nausea (principal); R53.81 Other malaise; R19.7 Diarrhea, unspecified; C90.00 Multiple myeloma not having achieved remission; L93.0 Discoid lupus erythematosus; F32.9 Major depressive disorder, single episode, unspecified; I10 Essential (primary) hypertension; Z79.899 Other long term (current) drug therapy; Z87.891 Personal history of nicotine dependence; R91.8 Other nonspecific abnormal finding of lung field; Z88.1 Allergy status to other antibiotic agents; Z88.0 Allergy status to penicillin; M06.9 Rheumatoid arthritis, unspecified
CPT/HCPCS: 36415; 71275; 80053; 83880; 84484; 85025; 85379; 93005; 93306; 96374; 96375; 99219; 99283; A9270-GY; G0378; J1650; J2405; Q9967

== ENCOUNTER 2017-11-16 19:18 | Inpatient (IN) | payer MEDICARE ==
[2017-11-16] MEDS ORDERED: NS 0.9% 1000 ML* 1,000 ML IV ONE (21:55)
[2017-11-16 22:10] LABS: ABS Basophils 0 10^3/ul (0-0.2); ABS Eosinophils 0 10^3/ul (0-0.6); ABS Lymphocytes 1.3 10^3/ul (1.0-4.8); ABS Monocytes 0.8 10^3/ul (0-0.8); ABS Neutrophils 3.9 10^3/ul (1.5-7.7); ABS Nucleated RBC 0 10^3/ul; Eosinophil % 0.2 % (0-6); Hematocrit 37 % (35-47); Lymphocyte % 22.1 % (25-47); Mean Corpuscular HGB Conc 33 g/dl (31-36); Mean Corpuscular Hemoglobin 29 pg (27-31); Mean Corpuscular Volume 88 fL (80-97); Mean Platelet Volume 8.8 um3 (7.4-10.4); Nucleated Red Blood Cells % 0; Platelet Count 247 10^3/ul (150-450); Red Blood Count 4.17 10^6/ul (4.0-5.4); Red Cell Distribution Width 16 % (10.5-15); White Blood Count 6.1 10^3/ul (3.5-10.8)
[2017-11-16 22:24] LABS: EGFR Non-African American 62.1 (>60)
--- NOTE | 2017-11-16 22:45 | ED ---
Nausea/Vomiting/Diarrhea HPI - HPI Summary HPI Summary: Patient complains of persistent N/V/D with increased weakness, decreased eating , epigastric and right upper quadrant pain 2 weeks. Patient has history of multiple myeloma was on chemotherapy until 2 weeks ago. Patient was taken off chemotherapy because she couldn't tolerate. Patient's symptoms have increased since stopping chemotherapy. Patient saw oncology yesterday and states they decreased her antiemetics from Compazine and Zofran to just Zofran, and told her she "just needed to eat". Patient states she is unable to keep her medications, food or liquids down. Denies fever, cough, sore throat, CP, SOB, change in urine or. Medical history is multiple myeloma, lupus. Abdominal/ pelvic surgical history is partial hysterectomy. - History of Current Complaint Chief Complaint: EDWeakness Stated Complaint: WEAKNESS, UNABLE TO KEEP ANYTHING DOWN Time Seen by Provider: 11/16/17 21:14 Hx Obtained From: Patient, Family/Maple Syrup Maker ?: No Onset/Duration: Gradual Onset Timing: Constant Severity Initially: Moderate Severity Currently: Severe Pain Intensity: 8 Pain Scale Used: 0-10 Numeric Character: Dull Aggravating Factor(s): Food Alleviating Factor(s): Nothing Nausea/Vomiting Presence: Nauseated, Vomiting Diarrhea Presence: Yes Diarrhea Characteristics: Watery - Allergies/Home Medications Allergies/Adverse Reactions: Allergies Allergy/AdvReac Type Severity Reaction Status Date / Time clindamycin Allergy Intermediate Hives Verified 11/16/17 21:15 oxycodone Allergy Intermediate Abdominal Verified 11/16/17 21:15 Pain Penicillins Allergy Intermediate Hives Verified 11/16/17 21:15 Home Medications: Home Medications Famotidine TAB* [Pepcid 20 MG TAB*] 40 mg PO QPM 11/16/17 [History Confirmed ] PMH/Surg Hx/FS Hx/Imm Hx Endocrine/Hematology History: Reports: Hx Systemic Lupus Erythematosus Denies: Hx Anticoagulant Therapy, Hx Diabetes Cardiovascular History: Reports: Hx Hypercholesterolemia, Hx Hypertension, Other Cardiovascular Problems/Disorders - Hx HTN Denies: Hx Pacemaker/ICD Respiratory History: Reports: Hx Pneumonia - x2 last 6 weeks GI History: Reports: Other GI Disorders - Hx diverticulitis History: Denies: Hx Renal Disease Musculoskeletal History: Comment Only: Hx Rheumatoid Arthritis - TONY Sensory History: Reports: Hx Contacts or Glasses Denies: Hx Hearing Aid Opthamlomology History: Reports: Hx Contacts or Glasses Psychiatric History: Denies: Hx Panic Disorder - Cancer History Cancer Type, Location and Year: Multiple Myeloma Hx Chemotherapy: No Hx Radiation Therapy: No - Surgical History Surgery Procedure, Year, and Place: Hysterectomy , varicose vein surgery . CATARACTS - Immunization History Date of Tetanus Vaccine: unk Date of Influenza Vaccine: unk Infectious Disease History: No Infectious Disease History: Reports: Hx Shingles - year ago, receiving medication currently, no open areas Denies: Traveled Outside the [place] in Last 30 Days - Family History Known Family History: Positive: Hypertension Negative: Respiratory Disease, Seizure Disorder - Social History Alcohol Use: None Substance Use Type: Reports: None Hx Tobacco Use: No Smoking Status (MU): Former Smoker Type: Cigarettes Amount Used/How Often: 1 PPD Length of Time of Smoking/Using Tobacco: 50 Years Have You Smoked in the Last Year: No Review of Systems Constitutional: Negative Eyes: Negative ENT: Negative Cardiovascular: Negative Respiratory: Negative Positive: Abdominal Pain, Vomiting, Diarrhea, Nausea Genitourinary: Negative Musculoskeletal: Negative Skin: Negative Neurological: Negative Psychological: Normal All Other Systems Reviewed And Are Negative: Yes Physical Exam Triage Information Reviewed: Yes Vital Signs On Initial Exam: Initial Vitals Temp Pulse Resp BP Pulse Ox 96.4 F 78 16 106/54 98 11/16/17 19:21 11/16/17 19:21 11/16/17 19:21 11/16/17 19:21 11/16/17 19:21 Vital Signs Reviewed: Yes Appearance: Positive: Well-Appearing Skin: Positive: Warm Head/Face: Positive: Normal Head/Face Inspection Eyes: Positive: Normal Neck: Positive: Supple Respiratory/Lung Sounds: Positive: Clear to Auscultation Cardiovascular: Positive: Normal Abdomen Description: Positive: Other: - Epigastric and right upper quadrant tenderness, history of same but with increasing symptoms since stopping chemotherapy Musculoskeletal: Positive: Normal Psychiatric: Positive: Normal - Elizabeth Coma Scale Best Eye Response: 4 - Spontaneous Best Motor Response: 6 - Obeys Commands Best Verbal Response: 5 - Oriented Coma Scale Total: 15 Diagnostics - Vital Signs Vital Signs Temp Pulse Resp BP Pulse Ox 11/16/17 19:21 96.4 F 78 16 106/54 98 - Laboratory Lab Results: Lab Results 11/16/17 11/16/17 Range/Units 22:00 22:00 WBC 6.1 (3.5-10.8) 10^3/ul RBC 4.17 (4.0-5.4) 10^6/ul Hgb 12.0 (12.0-16.0) g/dl Hct 37 (35-47) % MCV 88 (80-97) fL MCH 29 (27-31) pg MCHC 33 (31-36) g/dl RDW 16 H (10.5-15) % Plt Count 247 (150-450) 10^3/ul MPV 8.8 (7.4-10.4) um3 Neut % (Auto) 63.9 (38-83) % Lymph % (Auto) 22.1 L (25-47) % Cannon % (Auto) 13.4 H (0-7) % Eos % (Auto) 0.2 (0-6) % Baso % (Auto) 0.4 (0-2) % Absolute Neuts (auto) 3.9 (1.5-7.7) 10^3/ul Absolute Lymphs (auto) 1.3 (1.0-4.8) 10^3/ul Absolute Monos (auto) 0.8 (0-0.8) 10^3/ul Absolute Eos (auto) 0 (0-0.6) 10^3/ul Absolute Basos (auto) 0 (0-0.2) 10^3/ul Absolute Nucleated RBC 0 10^3/ul Nucleated RBC % 0 Sodium 133 L (139-145) mmol/L Potassium 3.3 L (3.5-5.0) mmol/L Chloride 98 L (101-111) mmol/L Carbon Dioxide 25 (22-32) mmol/L Anion Gap 10 (2-11) mmol/L BUN 19 (6-24) mg/dL Creatinine 0.88 (0.51-0.95) mg/dL Est GFR ( Amer) 79.9 (>60) Est GFR (Non-Af Amer) 62.1 (>60) BUN/Creatinine Ratio 21.6 H (8-20) Glucose 112 H (70-100) mg/dL Calcium 9.1 (8.6-10.3) mg/dL Total Bilirubin 0.80 (0.2-1.0) mg/dL AST 18 (13-39) U/L ALT 11 (7-52) U/L Alkaline Phosphatase 71 (34-104) U/L Total Protein 5.5 L (6.4-8.9) g/dL Albumin 3.6 (3.2-5.2) g/dL Globulin 1.9 L (2-4) g/dL Albumin/Globulin Ratio 1.9 (1-3) Lipase 44 (11.0-82.0) U/L Result Diagrams: 11/16/17 22:00 11/16/17 22:00 Lab Statement: Any lab studies that have been ordered have been reviewed, and results considered in the medical decision making process. Naus/Vom/Diarrhea Course/Dx - Course Course Of Treatment: Per family unable to maintain adequate solids or fluid intake due to uncontrolled nausea vomiting. Increasing weakness, unable to ambulate or perform functions of daily living. - Differential Dx/Diagnosis Provider Diagnoses: nausea vomiting diarrhea. uti. weakness. decreased po intake. pericardial effusion. infrarenal aneurysm Is Visit Related: No Condition At Discharge: Fair Discharge - Sign-Out/Discharge Documenting (check all that apply): Discharge - Discharge Plan Condition: Fair Disposition: ADMITTED TO [facility] - Billing Disposition and Condition Condition: FAIR Disposition: [facility] [place]
[2017-11-16] MEDS ORDERED: Ondansetron INJ* 2 MG/ML VIAL IV ONE (22:46)
[2017-11-17] MEDS ORDERED: Iohexol 300* (CONTRAST) 10 ML SDV IV ONE (00:23)
[2017-11-17 01:43] LABS: Urine Appearance Cloudy; Urine Blood Negative (Negative); Urine Color Amber; Urine Ketones 1+ (Negative); Urine Protein 2+(100 mg/dL) (Negative); Urine Specific Gravity 1.053 (1.010-1.030); Urine Urobilinogen Negative (Negative)
[2017-11-17] MEDS ORDERED: NS 0.9% 1000 ML* 1,000 ML IV ONE (02:57)
[2017-11-17] MEDS: Ciprofloxacin 400MG IVPREMIX(* 400 MG/200 ML BAG IVPB SCH ×2 (05:00→15:50)
[2017-11-17] MEDS ORDERED: Potassium Chloride IV* 40 MEQ in NS 0.9% 250 ML* 250 ML IVPB ONE (06:00)
[2017-11-17] MEDS ORDERED: KCL 20 MEQ/100 ML IVPREMIX* 20 MEQ/100 ML BAG IV SCH (06:00)
[2017-11-17] MEDS: NS 0.9% 1000 ML* 1,000 ML IV SCH ×2 (06:31→09:32)
[2017-11-17] MEDS: Ondansetron INJ* 2 MG/ML VIAL IV PRN ×2 (06:36→14:35)
[2017-11-17] MEDS: Enoxaparin(*) 40 MG/0.4 ML SYR SUBCUT SCH (06:36)
--- NOTE | 2017-11-17 08:02 | HP ---
HISTORY AND PHYSICAL: DATE OF ADMISSION: 11/17/17. TIME OF ADMISSION: 5 a.m. CHIEF COMPLAINT: Nausea and vomiting. HISTORY OF PRESENT ILLNESS: This is a 77-year-old female with a history of lupus and multiple myeloma, who has been here three times in the past 2 weeks for similar complaints of nausea, vomiting, and weakness. She was last discharged on the . Her last admission was 11/08 through 11/09 and was for generalized malaise, nausea, diarrhea, and chest pressure. To me, she reports that the diarrhea is now resolved; however, the nausea and vomiting has only gotten worse. She believes that her last chemotherapy was 2 weeks ago; however , on her H and P from 11/08, it is reported that her last chemo treatment was 2 weeks prior to that. So, it seems her most recent chemotherapy was approximately 3 weeks ago, and from her records, it seems that she was receiving bortezomib, lenalidomide, and Decadron. When she last saw Dr. Hernandez, it was decided to put her chemotherapy on hold due to progressive neuropathy. She reports that for the past month, she has needed her 's help for nearly everything she does at home. She gets around with a walker; however, has needed more and more help as the past several weeks have gone on. She states that she has barely been able to get herself to the bathroom; however, over the past couple days, this has gotten worse and she can barely get out of bed. She does not initially complain of pain; however, when I probed her further, she does admit to pain in her right hip, which she states that Dr. Hernandez has told her, her myeloma has been present there for sometime. She denies any recent falls. She denies imbalance or dizziness. Ultimately, she decided to come to the emergency department today because she was having ongoing nausea and vomiting and was unable to take any pills including her antiemetics. Since coming to the emergency department, she received IV Zofran and feels much better. Regarding her history of lupus, she does not know that the lupus has affected anywhere besides her joint. PAST MEDICAL HISTORY: Hypertension, systemic lupus erythematosus, and multiple myeloma. HOME MEDICATIONS: 1. Tylenol 650 q.6 p.r.n. pain. 2. Atenolol 50 mg daily. 3. Celexa 40 mg daily. 4. Plaquenil 200 mg b.i.d. 5. Mycophenolate 500 mg b.i.d. 6. Zofran ODT 4 mg q. 8 p.r.n. nausea. 7. Compazine 10 mg q. 6 p.r.n. nausea. 8. Acyclovir 500 mg b.i.d. 9. Klonopin 0.5 mg t.i.d. p.r.n. anxiety. 10. Pepcid 40 mg daily. 11. Gabapentin 300 mg t.i.d. SOCIAL HISTORY: She lives in a house with her . She quit smoking many years ago. She denies alcohol abuse. She denies drinking any alcohol due to recent nausea and vomiting. PHYSICAL EXAMINATION GENERAL: Alert, well-appearing female, in no distress. VITAL SIGNS: Blood pressure 125/80, pulse ox 97% on room air, heart rate 80, and temperature 96.4. HEENT: Pupils are equal, round, and reactive to light. No nystagmus. Moist oral mucosa. Few white plaques on her tongue. No pharyngeal edema or exudate. NECK: No cervical or supraclavicular lymphadenopathy. No JVP. LUNGS: Clear bilaterally CHEST: Regular rate and rhythm, no murmurs. PMI is not displaced. ABDOMEN: Soft, nondistended, mild tenderness to palpation in the right upper quadrant with no guarding or rebound. Forde sign is negative. No CVA tenderness. She does have tenderness to deep palpation over her right iliac crest. She has good passive range of motion of both hips. EXTREMITIES: No edema. No ulcers. No rashes. No tenderness noted over the spinous processes. NEUROLOGIC: Strength is 5/5 in both upper extremities and her left lower extremity and 4/5 in her right lower extremity. Her sensation is equal in both lower extremities and her deep tendon reflexes are 2+ in both lower extremities. LABORATORY DATA: White blood cells 6.1, hemoglobin 12.0, platelets 247. Sodium 133, potassium 3.3, chloride 98, bicarb 25, BUN 19, creatinine 0.88, glucose 112. Lipase 44. UA 2+ leuk esterase, 3+ white blood cells, 1+ bacteria. DIAGNOSTIC STUDIES: Abdomen and pelvis CT, hysterectomy, small umbilical hernia containing fat and small pericardial effusion, unremarkable stomach, liver, spleen, pancreas, gallbladder. No bowel obstruction, colitis, free fluid or free air. ASSESSMENT AND PLAN: This is a 77-year-old female with a history of multiple myeloma and lupus presenting with 3 weeks of nausea and vomiting and progressive weakness. 1. Intractable nausea and vomiting. A CT abdomen and pelvis was unremarkable here and she has a benign abdominal exam. This seems to be a prolonged effect of her chemotherapy that was administered 3 weeks ago. Her labs do support ongoing nausea and vomiting. I also think it is possible that she is having medication side effects from mycophenolate and/or Plaquenil as either both known to cause similar GI side effects despite her having been on both these medications for a long time. It is possible that these symptoms are just arising now. I would like to hold these medications as well as her other p.o. medications and treat her supportively. Her calcium is normal, so that should not be contributing to her GI complaints. I will treat her with p.r.n. antiemetics and encourage p.o. intake as tolerated. 2. Weakness. She does have some right lower extremity weakness that seems to be related to right hip pain. She had an MRI approximately 2 months ago of her hip, which did show multiple osseous lesions about the pelvis and proximal right femur. She has no red flag findings that would make me suspicious for spinal involvement. So, I do not believe we need any further imaging at this time. However, it is possible that her bony disease has progressed within her hip. She describes her weakness as subacute in progression and has actually been worsening for several weeks. I am consulting physical therapy and she is agreeable to go in short-term rehab if they recommend it before she goes home. 3. Hypokalemia, likely related to recent nausea and vomiting. I will replete this now. 4. Multiple myeloma. Her calcium, renal function, and hemoglobin are all acceptable at this point. 5. Urinary tract infection. She is allergic to PENICILLIN, so I am starting her on ciprofloxacin, and we should follow up with the urine culture. 6. Code status. I discussed this with her and she wishes to be DNR and DNI. 7. Disposition. Admit to Medicine for supportive management and a PT consult for possible short-term rehab placement. [id number]/[facility] #: [id number] MTDD
[2017-11-17] MEDS: Acyclovir* 400 MG TAB PO SCH ×2 (08:37→21:03)
--- NOTE | 2017-11-17 10:07 | RAD ---
Indication: Epigastric pain. CT of the abdomen and pelvis was performed after oral and IV contrast administration. Coronal and sagittal reconstructed images were obtained. The lung bases demonstrate no pleural fluid, nodules or masses. Atelectasis is noted in the lingula. Cardiomegaly with trace pericardial effusion is noted. The liver is normal in size. No focal lesions or intrahepatic duct dilatation is noted. Gallbladder demonstrates minimal wall thickening with no calcified gallstones. No pericholecystic fluid is noted. Spleen is normal in size. No adrenal lesions are noted. The kidneys demonstrate symmetric nephrograms. Cortical cyst is noted in the left kidney measuring up to 5.5 x 4.3 cm. 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 The small saccular aneurysm now measures approximately 2.8 x 2.2 x 1.5 cm previously measuring 1.5 x 0.9 x 1.6 cm. Common iliac arteries are unremarkable. CT of the pelvis demonstrates diverticulosis. Wall thickening of the sigmoid colon is noted. Patient is status post hysterectomy. No hernias are noted. IMPRESSION: Diverticulosis of the sigmoid colon. Wall thickening is noted. 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 Trace pericardial effusion.
[2017-11-17] MEDS: Morphine VIAL* 4 MG/ML VIAL (1 ml vial) IV PRN ×4 (10:22→21:02)
--- NOTE | 2017-11-17 13:31 | PN ---
Subjective Date of Service: 11/17/17 Interval History: C/O pain R hip area. Can't get OOB unassisted. Appetite fair. Nausea resolved. Objective Active Medications: Acyclovir (Zovirax Tab*) 500 mg PO BID [facility] Last Admin: 11/17/17 08:37 Dose: Not Given Al Hydrox/Mg Hydrox/Simethicone (Maalox Plus*) 30 ml PO Q6H PRN PRN Reason: INDIGESTION Clonazepam (Klonopin Tab(*)) 0.5 mg PO TID PRN PRN Reason: ANXIETY Enoxaparin Sodium (Lovenox(*)) 40 mg SUBCUT Q24H [facility] Last Admin: 11/17/17 06:36 Dose: 40 mg Famotidine (Pepcid Tab*) 40 mg PO QPM [facility] Gabapentin (Neurontin Cap(*)) 300 mg PO TID PRN PRN Reason: PAIN Ciprofloxacin/Dextrose (Cipro 400 Mg Ivpremix(*)) 400 mg in 200 mls @ 200 mls/ hr IVPB Q12H [facility] Last Admin: 11/17/17 05:00 Dose: 200 mls/hr Potassium Chloride/Sodium Chloride (Ns 0.9% W/ 20 Meq Kcl 1000 Ml*) 1,000 mls @ 100 mls/hr IV PER RATE [facility] Morphine Sulfate (Morphine Vial*) 2 mg IV Q2H PRN PRN Reason: PAIN - MILD Last Admin: 11/17/17 13:01 Dose: 2 mg Ondansetron HCl (Zofran Inj*) 4 mg IV Q6H PRN PRN Reason: NAUSEA Last Admin: 11/17/17 06:36 Dose: 4 mg Vital Signs - 8 hr 11/17/17 11/17/17 11/17/17 05:43 06:23 06:29 Temperature 99.9 F 99.0 F 99.0 F Pulse Rate 70 72 72 Respiratory 16 22 22 Rate Blood Pressure 163/78 142/57 142/57 (mmHg) O2 Sat by Pulse 96 97 97 Oximetry 11/17/17 11/17/17 11/17/17 07:06 08:00 10:22 Temperature 98.1 F Pulse Rate 66 Respiratory 20 18 20 Rate Blood Pressure 150/56 (mmHg) O2 Sat by Pulse 96 Oximetry 11/17/17 11/17/17 11/17/17 10:54 11:43 13:01 Temperature 98.7 F Pulse Rate 68 Respiratory 18 16 20 Rate Blood Pressure 155/48 (mmHg) O2 Sat by Pulse 96 Oximetry Oxygen Devices in Use Now: None Appearance: Alert, lying on her L side in bed. In fair spirits. Looks comfortable at rest. Eyes: No Scleral Icterus Extremities: No Edema, No Clubbing, Cyanosis, - Skin: No Rash or Ulcers, No Nodules or Sclerosis, - Neurological: Alert and Oriented x 3, NL Sensation Result Diagrams: 11/16/17 22:00 11/16/17 22:00 Additional Lab and Data: Lab Results 11/16/17 11/16/17 Range/Units 22:00 22:00 WBC 6.1 (3.5-10.8) 10^3/ul RBC 4.17 (4.0-5.4) 10^6/ul Hgb 12.0 (12.0-16.0) g/dl Hct 37 (35-47) % MCV 88 (80-97) fL MCH 29 (27-31) pg MCHC 33 (31-36) g/dl RDW 16 H (10.5-15) % Plt Count 247 (150-450) 10^3/ul MPV 8.8 (7.4-10.4) um3 Neut % (Auto) 63.9 (38-83) % Lymph % (Auto) 22.1 L (25-47) % Edgar % (Auto) 13.4 H (0-7) % Eos % (Auto) 0.2 (0-6) % Baso % (Auto) 0.4 (0-2) % Absolute Neuts (auto) 3.9 (1.5-7.7) 10^3/ul Absolute Lymphs (auto) 1.3 (1.0-4.8) 10^3/ul Absolute Monos (auto) 0.8 (0-0.8) 10^3/ul Absolute Eos (auto) 0 (0-0.6) 10^3/ul Absolute Basos (auto) 0 (0-0.2) 10^3/ul Absolute Nucleated RBC 0 10^3/ul Nucleated RBC % 0 Sodium 133 L (139-145) mmol/L Potassium 3.3 L (3.5-5.0) mmol/L Chloride 98 L (101-111) mmol/L Carbon Dioxide 25 (22-32) mmol/L Anion Gap 10 (2-11) mmol/L BUN 19 (6-24) mg/dL Creatinine 0.88 (0.51-0.95) mg/dL Est GFR ( Amer) 79.9 (>60) Est GFR (Non-Af Amer) 62.1 (>60) BUN/Creatinine Ratio 21.6 H (8-20) Glucose 112 H (70-100) mg/dL Calcium 9.1 (8.6-10.3) mg/dL Total Bilirubin 0.80 (0.2-1.0) mg/dL AST 18 (13-39) U/L ALT 11 (7-52) U/L Alkaline Phosphatase 71 (34-104) U/L Total Protein 5.5 L (6.4-8.9) g/dL Albumin 3.6 (3.2-5.2) g/dL Globulin 1.9 L (2-4) g/dL Albumin/Globulin Ratio 1.9 (1-3) Lipase 44 (11.0-82.0) U/L Assess/Plan/Problems-Billing Assessment: - Patient Problems (1) Nausea & vomiting Current Visit: Yes Status: Acute Code(s): R11.2 - NAUSEA WITH VOMITING, UNSPECIFIED SNOMED Code(s): 35847294 Comment: Improved. KCL added to IV fluids. BMP 11/18. (2) Multiple myeloma Current Visit: Yes Status: Acute Code(s): C90.00 - MULTIPLE MYELOMA NOT HAVING ACHIEVED REMISSION SNOMED Code(s): 143709071 Comment: X-ray R hip ordered. PT ordered. (3) Hyponatremia Current Visit: Yes Status: Acute Code(s): E87.1 - HYPO-OSMOLALITY AND HYPONATREMIA SNOMED Code(s): 24027483 Comment: Continue NSS with KCL BMP 11/18. (4) UTI (urinary tract infection) Current Visit: Yes Status: Acute Comment: Abnl u/a. C&S pending. No fever of leukocystosis, no sx's. Continue ciprofloxacin pending C&S redsults.
[2017-11-17] MEDS: NS 0.9% w/ 20 Meq KCL 1000 ML* 1,000 ML IV SCH (13:58)
--- NOTE | 2017-11-17 14:36 | RAD ---
Indication: Right hip pain. 2 views of the right hip and an AP view the pelvis demonstrates pelvic ring to be intact. Joint spaces are well-preserved. There is no fracture noted. IMPRESSION: No fracture of the pelvis or right hip is noted.
[2017-11-17] MEDS: Famotidine TAB* 20 MG PO SCH (16:17)
[2017-11-18] MEDS: NS 0.9% w/ 20 Meq KCL 1000 ML* 1,000 ML IV SCH ×3 (00:40→23:22)
[2017-11-18] MEDS: Morphine VIAL* 4 MG/ML VIAL (1 ml vial) IV PRN ×2 (03:29→14:35)
[2017-11-18] MEDS: Ciprofloxacin 400MG IVPREMIX(* 400 MG/200 ML BAG IVPB SCH ×2 (05:24→17:11)
[2017-11-18] MEDS: Enoxaparin(*) 40 MG/0.4 ML SYR SUBCUT SCH (05:24)
[2017-11-18 06:58] LABS: EGFR Non-African American 88.2 (>60)
[2017-11-18] MEDS: Acyclovir* 400 MG TAB PO SCH ×2 (09:05→20:25)
[2017-11-18] MEDS: Atenolol TAB* 50 MG PO SCH (10:13)
--- NOTE | 2017-11-18 11:25 | PN ---
Progress Note - Progress Note Date of Service: 11/18/17 SOAP: Subjective: []Feeling a lot better. No nausea following clear liquids this AM. OK urine output, though notes she had significant decrease prior to today. Up with PT and feels stronger today than over weekend. Cont.'d back and right hip pain, unchanged. Medications: Acyclovir (Zovirax Tab*) 800 mg PO BID [facility] Last Admin: 11/18/17 09:05 Dose: 800 mg Al Hydrox/Mg Hydrox/Simethicone (Maalox Plus*) 30 ml PO Q6H PRN PRN Reason: INDIGESTION Atenolol (Tenormin Tab*) 50 mg PO DAILY [facility] Last Admin: 11/18/17 10:13 Dose: 50 mg Clonazepam (Klonopin Tab(*)) 0.5 mg PO TID PRN PRN Reason: ANXIETY Enoxaparin Sodium (Lovenox(*)) 40 mg SUBCUT Q24H [facility] Last Admin: 11/18/17 05:24 Dose: 40 mg Famotidine (Pepcid Tab*) 40 mg PO QPM [facility] Last Admin: 11/17/17 16:17 Dose: 40 mg Gabapentin (Neurontin Cap(*)) 300 mg PO TID PRN PRN Reason: PAIN Ciprofloxacin/Dextrose (Cipro 400 Mg Ivpremix(*)) 400 mg in 200 mls @ 200 mls/ hr IVPB Q12H [facility] Last Admin: 11/18/17 05:24 Dose: 200 mls/hr Potassium Chloride/Sodium Chloride (Ns 0.9% W/ 20 Meq Kcl 1000 Ml*) 1,000 mls @ 100 mls/hr IV PER RATE [facility] Last Admin: 11/18/17 00:40 Dose: 100 mls/hr Morphine Sulfate (Morphine Vial*) 2 mg IV Q2H PRN PRN Reason: PAIN - MILD Last Admin: 11/18/17 03:29 Dose: 2 mg Ondansetron HCl (Zofran Inj*) 4 mg IV Q6H PRN PRN Reason: NAUSEA Last Admin: 11/17/17 14:35 Dose: 4 mg Objective: [] Vital Signs Temp Pulse Resp BP Pulse Ox 99.0 F 75 16 187/72 97 11/18/17 07:15 11/18/17 07:15 11/18/17 07:15 11/18/17 07:15 11/18/17 07:15 A&Ox3, EOMI, WATTS, neuro grossly non-focal HRR, S1S2, no murmur noted LS clear bilat. throughout +BS, abd. soft and non-tender Laboratory Results - last 24 hr 11/18/17 06:07 Sodium 137 L Potassium 3.8 Chloride 110 Carbon Dioxide 21 L Anion Gap 6 BUN 22 Creatinine 0.65 Est GFR ( Amer) 113.4 Est GFR (Non-Af Amer) 88.2 BUN/Creatinine Ratio 33.8 H Glucose 129 H Calcium 8.1 L Assessment: []77 yo with recent diagnosed multiple myleoma (smoldering for years with new lytic lesions) now s/p 2 cycles of RVD with tx. on hold d/t progressive neuropathy and unclear progressive decline. Seen in office on 11/15 with weakness, nausea, and anorexia with goal of managing as an outpatient and re- eval. today in office, however over the weekend became progressively worse and presented to the ER. Admitted with hypokalemia and found to have bacturia. Plan: []1. UTI: micro pending, cont. IV abx. 2. Hypokalemia: secondary to nausea, emesis, and poor PO intake. Cont. IV replacement and follow daily labs 3. Nausea: seems improved since Lupus meds held, will discuss with Dr. Chery 4. Hip Pain: known lytic lesion and RT consult pending, PT and OT evals as she may require subacute rehab
[2017-11-18] MEDS: Gabapentin CAP(*) 300 MG PO PRN (11:53)
[2017-11-18] MEDS: Famotidine TAB* 20 MG PO SCH (17:11)
[2017-11-19] MEDS ORDERED: Metoprolol Tartrate IV* 1 MG/ML 5 ML VIAL IV ONE (03:30)
[2017-11-19] MEDS: Metoprolol Tartrate IV* 1 MG/ML 5 ML VIAL ONE ×2 (03:38→03:52)
[2017-11-19] MEDS: clonazePAM TAB(*) 0.5 MG PO PRN (03:39)
[2017-11-19] MEDS ORDERED: hydrALAZINE IV* 20 MG/ML VIAL ONE (04:44)
[2017-11-19] MEDS: Ciprofloxacin 400MG IVPREMIX(* 400 MG/200 ML BAG IVPB SCH (04:50)
[2017-11-19] MEDS ORDERED: hydrALAZINE IV* 20 MG/ML VIAL IV SLOW PU ONE (05:00)
[2017-11-19] MEDS: Gabapentin CAP(*) 300 MG PO PRN ×2 (06:16→18:53)
[2017-11-19] MEDS: Enoxaparin(*) 40 MG/0.4 ML SYR SUBCUT SCH (07:03)
[2017-11-19 07:35] LABS: ABS Basophils 0.2 10^3/ul (0-0.2); ABS Eosinophils 0.1 10^3/ul (0-0.6); ABS Lymphocytes 0.7 10^3/ul (1.0-4.8); ABS Monocytes 0.7 10^3/ul (0-0.8); ABS Neutrophils 4.4 10^3/ul (1.5-7.7); ABS Nucleated RBC 0 10^3/ul; Eosinophil % 2.2 % (0-6); Hematocrit 33 % (35-47); Mean Corpuscular HGB Conc 33 g/dl (31-36); Mean Corpuscular Hemoglobin 29 pg (27-31); Mean Corpuscular Volume 88 fL (80-97); Mean Platelet Volume 9.4 um3 (7.4-10.4); Nucleated Red Blood Cells % 0; Platelet Count 167 10^3/ul (150-450); Red Blood Count 3.76 10^6/ul (4.0-5.4); Red Cell Distribution Width 17 % (10.5-15); White Blood Count 6.1 10^3/ul (3.5-10.8)
[2017-11-19] MEDS: Atenolol TAB* 50 MG PO SCH (07:54)
[2017-11-19] MEDS: hydrALAZINE IV* 20 MG/ML VIAL IV SLOW PU PRN ×2 (07:55→23:23)
[2017-11-19] MEDS: Acyclovir* 400 MG TAB PO SCH ×2 (07:55→20:38)
[2017-11-19 07:56] LABS: EGFR Non-African American 109.2 (>60)
[2017-11-19] MEDS: Famotidine TAB* 20 MG PO SCH (17:14)
[2017-11-19] MEDS: Ciprofloxacin TAB* 500 MG PO SCH (17:14)
[2017-11-19] MEDS: Al Hydrox/Mg Hydrox/Simet LIQ* 30 ML UDC PO PRN (18:56)
[2017-11-20] MEDS: Al Hydrox/Mg Hydrox/Simet LIQ* 30 ML UDC PO PRN (04:33)
[2017-11-20] MEDS: clonazePAM TAB(*) 0.5 MG PO PRN ×2 (04:33→10:09)
[2017-11-20] MEDS: Ciprofloxacin TAB* 500 MG PO SCH (05:00)
[2017-11-20] MEDS: Enoxaparin(*) 40 MG/0.4 ML SYR SUBCUT SCH (05:00)
[2017-11-20] MEDS ORDERED: Ondansetron ODT TAB* 4 MG SL PRN (09:40)
[2017-11-20 09:50] VITALS: BP 140/89
[2017-11-20] MEDS: Acyclovir* 400 MG TAB PO SCH (10:10)
[2017-11-20] MEDS: Atenolol TAB* 50 MG PO SCH (10:10)
[2017-11-20] MEDS: Ondansetron INJ* 2 MG/ML VIAL IV PRN (10:10)
--- NOTE | 2017-11-20 11:16 | DS ---
CC: Dr. Orozco; Dr. Fran Hernandez; Dr. Chery; Dr. Larios* DISCHARGE SUMMARY: DATE OF ADMISSION: 11/17/17 DATE OF DISCHARGE: 11/20/17 PRIMARY ONCOLOGIST: Dr. Fran Hernandez. PRIMARY CARE PROVIDER: Dr. Orozco. ATTENDING PHYSICIAN: Dr. Marlee Howell* (dictated by ELVIA Clinton). DISCHARGING PROVIDER: ELVIA Clinton PRIMARY DISCHARGE DIAGNOSES: 1. Urinary tract infection with intractable nausea and vomiting. 2. Hypokalemia secondary to gastrointestinal loss. 3. Multiple myeloma with significant peripheral neuropathy related to treatments - status post 2 cycles of RVD. 4. Right hip pain secondary to known lytic lesion without associated fracture. DISCHARGE MEDICATIONS: 1. Acetaminophen 650 mg p.o. q.6 hours as needed for pain or fever. 2. Acyclovir 500 mg p.o. twice daily. 3. Atenolol 50 mg p.o. daily. 4. Cipro 500 mg p.o. twice daily x7 days. 5. Citalopram 40 mg p.o. daily. 6. Clonazepam 0.5 mg p.o. 3 times daily as needed for anxiety. 7. Famotidine 40 mg p.o. daily. 8. Gabapentin 300 mg p.o. 3 times daily. 9. Plaquenil 200 mg p.o. twice daily. 10. CellCept 500 mg p.o. twice daily. 11. Zofran 4 mg p.o. q.8 hours as needed for nausea or vomiting. 12. Compazine 10 mg p.o. q.6 hours as needed for nausea or vomiting. 13. Tramadol 50 mg p.o. q.6 hours as needed for pain. Medication changes: 1. Cipro x7 days. 2. P.r.n. tramadol. HOSPITAL IMAGIN. CT abdomen and pelvis showed no evidence of obstruction. She has a small pericardial effusion and small umbilical hernia containing fat since status post hysterectomy. No other pathologic findings. 2. X-ray of the hip and pelvis shows no fracture. HOSPITAL COURSE: This is a 77-year-old female with multiple myeloma, status post 2 cycles of RVD, which unfortunately she has tolerated very poorly. She had severe diarrhea associated with treatment and progressive neuropathy and then hospitalized on 3 occasions over the last couple of weeks due to the treatment-related complications. She presented to the emergency department this time due to intractable nausea and vomiting. She had been seen in the medical oncology clinic for a couple of days prior and received antiemetics and fluids, but unfortunately her symptoms continued to progress and she required readmission. Labs at the time of admission showed an essentially normal CBC. Chemistry panel showed some mild hypokalemia with a potassium of 3.3. Transaminases were within normal limits and normal renal function. Her urinalysis was suggestive of a urinary tract infection and culture eventually grew enterococcus resistant to tetracycline. The patient's nausea and vomiting improved with IV fluids and IV antiemetics and she was started on antibiotics for her urinary tract infection. Her prior diarrhea has resolved and she denied any constipation. She has been complaining of right hip pain for several weeks. She has a known lytic lesion in that region. X-ray during this hospitalization shows no associated fracture. She rates her pain as manageable, she does not take any narcotic medications for this. She has been referred to Radiation Oncology for palliative radiation; this consultation will occur on an outpatient basis. We will try to manage her pain with tramadol. The patient has had significant decline in her performance status over the last couple of weeks and spent most of the last several days in bed prior to this hospitalization. She has been able to stand independently after working with Physical Therapy, but her mobility has been significantly compromised and would benefit from a subacute rehab stay prior to returning home. The patient has known lupus and is managed by Dr. Chery, treated with CellCept and Plaquenil. Thought that these medications were contributing to her persistent nausea and vomiting and were held during her hospitalization. She does not have any severe sepsis associated with her urinary tract infection. Attempted to contact Dr. Chery's office at the time of discharge, but unfortunately was unable to get through. At this time, recommend that she resume her Plaquenil and CellCept, but can hold again if she redevelops severe nausea and vomiting. Recommend followup with Dr. Chery within the next couple of weeks to review her lupus therapy with symptoms seems to be stable at this time. DISPOSITION: Followup plan: The patient is being discharged to [facility] for subacute rehab services. She is to follow up with Dr. Hernandez on 12/05/17, further therapy will be on hold at this time. Recommend followup with Dr. Chery within the next months following discharge from rehab regarding her lupus therapy. She will see Dr. Larios in consultation for palliative radiation to her right hip following discharge from rehab as well. Recommend monitoring her blood pressure during rehab as she was quite hypertensive throughout her hospital stay, no adjustment made to her antihypertensive medications at the time of discharge. ELVIA CLINTON [id number]/[facility] #: [id number] MTDTierney
== END 2017-11-20 12:05 | DRG 690 ==
LOC: ED 19:18 → MED 11-17 05:03 → OBSVTOIN 11-17 05:30
PROVIDERS: ADMIT Internal Medicine; ATTEND Internal Medicine Hematology & Oncology
DX: N39.0 Urinary tract infection, site not specified (principal); C90.00 Multiple myeloma not having achieved remission; B95.2 Enterococcus as the cause of diseases classified elsewhere; E87.6 Hypokalemia; G62.89 Other specified polyneuropathies; M32.9 Systemic lupus erythematosus, unspecified; M25.551 Pain in right hip; M25.851 Other specified joint disorders, right hip; K42.9 Umbilical hernia without obstruction or gangrene; R11.2 Nausea with vomiting, unspecified; Z16.29 Resistance to other single specified antibiotic; Z87.891 Personal history of nicotine dependence; I10 Essential (primary) hypertension; Z79.1 Long term (current) use of non-steroidal anti-inflammatories (NSAID); Z79.899 Other long term (current) drug therapy; R10.13 Epigastric pain
CPT/HCPCS: 36415; 74177; 80048; 80053; 81003; 81015; 83690; 85025; 87077; 87086; 87186; 99232; 99233; 99239; 99285; A9270-GY; G8978-GP-CJ; G8978-GP-CL; G8979-GP-CH; G8979-GP-CI; G8987-GO-CK; G8988-GO-CI; G8989-GO-CI; J0360; J0744; J1650; J2270; J2405; J3480; J3490; Q9967

== ENCOUNTER 2018-08-15 11:07 | Emergency (ER) | payer MEDICARE ==
[2018-08-15 11:30] VITALS: BP 128/57
--- NOTE | 2018-08-15 11:57 | UC ---
Respiratory Complaint HPI - HPI Summary HPI Summary: Pt c/o cough, nasal congestion X 4-6 weeks. Pt has been under treatment for multiple myeloma X 10 years. Pt is due to begin new chemo next . Pt was given instruction to take/use flonase, mucinex and robitussin. , Pt has had recent imaging. - History of Current Complaint Chief Complaint: UCRespiratory Stated Complaint: FEVER, COUGH Time Seen by Provider: 08/15/18 11:30 Hx Obtained From: Patient ?: No Onset/Duration: Gradual Onset, Lasting Weeks, Still Present Timing: Constant Severity Initially: Mild Severity Currently: Mild Pain Intensity: 0 Character: Cough: Nonproductive Aggravating Factors: Exertion, Deep Breaths, Recumbent Position Associated Signs And Symptoms: Positive: URI, Nasal Congestion - Risk Factors Pulmonary Embolism Risk Factors: Malignancy Cardiac Risk Factors: Negative Pseudomonas Risk Factors: Chronic Steriod Use Past 3 Months Tuberculosis Risk Factors: Corticosteriod Use - Allergies/Home Medications Allergies/Adverse Reactions: Allergies Allergy/AdvReac Type Severity Reaction Status Date / Time clindamycin Allergy Intermediate Hives Verified 08/15/18 11:18 oxycodone Allergy Intermediate Abdominal Verified 08/15/18 11:18 Pain Penicillins Allergy Intermediate Hives Verified 08/15/18 11:18 Home Medications: Home Medications Aspirin [Aspirin EC] 81 mg PO DAILY 08/15/18 [History Confirmed 08/15/18] Cholecalciferol (Vitamin D3) [Vitamin D3] 2,000 unit PO DAILY 08/15/18 [History Confirmed 08/15/18] Dextromethorphan HBr [Vicks Dayquil Cough] 15 mg PO PRN 08/15/18 [History] Fluticasone NASAL SPRAY 50MCG* [Flonase NASAL SPRAY 50MCG*] 2 spray BOTH NARES DAILY 08/15/18 [History Confirmed 08/15/18] Guaifenesin/Pseudoephedrne HCl [Mucinex D ER Tablet] 1 each PO PRN 08/15/18 [ History] Losartan Potassium 100 mg PO DAILY 08/15/18 [History Confirmed 08/15/18] Melphalan TAB* [Alkeran TAB*] 08/15/18 [History Confirmed 08/15/18] Pregabalin CAP(*) [Lyrica CAP(*)] 100 mg PO TID 08/15/18 [History Confirmed ] amLODIPine TAB* [Norvasc 5 mg TAB*] 5 mg PO DAILY 08/15/18 [History Confirmed ] predniSONE TAB* [Deltasone 1 MG TAB*] 7.5 mg PO DAILY 08/15/18 [History Confirmed 08/15/18] PMH/Surg Hx/FS Hx/Imm Hx Previously Healthy: No - multiple myeloma Cancer History: Other - MM Other History Of: Negative For: Anticoagulant Therapy - Surgical History Surgical History: Yes Surgery Procedure, Year, and Place: Hysterectomy , varicose vein surgery . CATARACTS - Family History Known Family History: Positive: Hypertension Negative: Respiratory Disease, Seizure Disorder - Social History Occupation: Retired Lives: With Family Alcohol Use: None Substance Use Type: None Smoking Status (MU): Former Smoker Type: Cigarettes Amount Used/How Often: 1 PPD Length of Time of Smoking/Using Tobacco: 50 Years Have You Smoked in the Last Year: No When Did the Patient Quit Smoking/Using Tobacco: 25 YEARS AGO - Immunization History Most Recent Tetanus Shot: 6 years ago Review of Systems All Other Systems Reviewed And Are Negative: Yes Constitutional: Positive: Fatigue Skin: Positive: Negative Eyes: Positive: Negative ENT: Positive: Sinus Congestion Respiratory: Positive: Cough Cardiovascular: Positive: Negative Gastrointestinal: Positive: Negative Genitourinary: Positive: Negative Motor: Positive: Negative Neurovascular: Positive: Negative Musculoskeletal: Positive: Negative Neurological: Positive: Negative Psychological: Positive: Negative Is Patient Immunocompromised?: No Physical Exam Triage Information Reviewed: Yes Appearance: Well-Appearing Vital Signs: Initial Vital Signs Temp 98.4 F 08/15/18 11:20 Pulse 75 08/15/18 11:20 Resp 21 08/15/18 11:20 BP 128/57 08/15/18 11:20 Pulse Ox 97 08/15/18 11:20 Vital Signs Reviewed: Yes Eye Exam: Normal ENT: Positive: Nasal congestion Dental Exam: Normal Neck exam: Normal Respiratory Exam: Normal Cardiovascular Exam: Normal Musculoskeletal Exam: Normal Neurological Exam: Normal Psychological Exam: Normal Skin Exam: Normal UC Diagnostic Evaluation - Laboratory O2 Sat by Pulse Oximetry: 97 Respiratory Course/Dx - Differential Dx/Diagnosis Differential Diagnosis/HQI/PQRI: Bronchitis, Exacerbation Of COPD, Pulmonary Embolism Provider Diagnosis: Bronchitis Discharge - Sign-Out/Discharge Documenting (check all that apply): Patient Departure All imaging exams completed and their final reports reviewed: No Studies - Discharge Plan Condition: Stable Disposition: HOME Prescriptions: Azithromycin TAB* [Zithromax TAB (Z-MALAIKA) 250 mg #6 tabs] 2 tab PO .TODAY, THEN 1 DAILY #1 malaika Patient Education Materials: Acute Bronchitis (ED) Referrals: Aureliano Orozco MD [Primary Care Provider] - If Needed Fran Hernandez MD [Medical Doctor] - If Needed - Billing Disposition and Condition Condition: STABLE Disposition: Home - Attestation Statements Provider Attestation: I was available for consult. This patient was seen by the CORNELL. The patient was not presented to, seen by, or examined by me. -Jorge
== END 2018-08-15 12:07 | disposition home or self-care (01) ==
LOC: UCCORT 11:07
DX: J40 Bronchitis, not specified as acute or chronic (principal); Z88.5 Allergy status to narcotic agent; Z88.1 Allergy status to other antibiotic agents; Z88.0 Allergy status to penicillin; C90.00 Multiple myeloma not having achieved remission; Z87.891 Personal history of nicotine dependence
CPT/HCPCS: 99212; G0463

== ENCOUNTER 2018-12-01 07:04 | Emergency (ER) | payer MEDICARE ==
[2018-12-01 07:18] VITALS: BP 141/65
--- NOTE | 2018-12-01 07:48 | ED ---
Respiratory - HPI Summary HPI Summary: 78 yr old female with the complaint of cough, runny nose, post nasal drip, sinus congestion. Onset of symptoms three days ago with worsening cough. The patient reports that she has had a chronic cough for three years. She is here due to the worsening of cough and the new URI symptoms over the past three days. No fever. No myalgias. She is being treated for Multiple Myeloma by the [facility]. - History of Current Complaint Chief Complaint: UCGeneralIllness Stated Complaint: COUGH Time Seen by Provider: 12/01/18 07:21 Pain Intensity: 0 - Allergy/Home Medications Allergies/Adverse Reactions: Allergies Allergy/AdvReac Type Severity Reaction Status Date / Time oxycodone Allergy Intermediate Abdominal Verified 09/30/18 15:45 Pain Home Medications: Home Medications Ascorbic Acid TAB* [Vitamin C TAB*] 500 mg PO DAILY 12/01/18 [History Confirmed 12/01/18] Furosemide TAB* [Lasix TAB*] 20 mg PO DAILY 12/01/18 [History Confirmed 12/01/18 ] Tramadol HCl [Ultram] 50 mg PO Q6H PRN MDD 4 tabs 12/01/18 [History Confirmed ] PMH/Surg Hx/FS Hx/Imm Hx Endocrine/Hematology History: Reports: Hx Systemic Lupus Erythematosus Denies: Hx Anticoagulant Therapy, Hx Diabetes, Hx Thyroid Disease Cardiovascular History: Reports: Hx Hypercholesterolemia, Hx Hypertension, Other Cardiovascular Problems/Disorders - Hx HTN Denies: Hx Pacemaker/ICD Respiratory History: Reports: Hx Pneumonia - x2 last 6 weeks Denies: Hx Asthma, Hx Chronic Obstructive Pulmonary Disease (COPD) GI History: Reports: Other GI Disorders - Hx diverticulitis Denies: Hx Ulcer History: Denies: Hx Renal Disease Musculoskeletal History: Comment Only: Hx Rheumatoid Arthritis - TONY Sensory History: Reports: Hx Contacts or Glasses Denies: Hx Hearing Aid Opthamlomology History: Reports: Hx Contacts or Glasses Psychiatric History: Denies: Hx Panic Disorder - Cancer History Cancer Type, Location and Year: Multiple Myeloma Hx Chemotherapy: No Hx Radiation Therapy: No - Surgical History Surgery Procedure, Year, and Place: Hysterectomy , varicose vein surgery . CATARACTS - Immunization History Date of Tetanus Vaccine: unk Date of Influenza Vaccine: unk Infectious Disease History: No Infectious Disease History: Reports: Hx Shingles Denies: Hx Hepatitis, Hx Human Immunodeficiency Virus (HIV), Traveled Outside the US in Last 30 Days - Family History Known Family History: Positive: Hypertension Negative: Respiratory Disease, Seizure Disorder - Social History Occupation: Retired Alcohol Use: None Substance Use Type: Reports: None Hx Tobacco Use: No Smoking Status (MU): Former Smoker Type: Cigarettes Amount Used/How Often: 1 PPD Length of Time of Smoking/Using Tobacco: 50 Years Have You Smoked in the Last Year: No Review of Systems Constitutional: Negative Positive: Cough All Other Systems Reviewed And Are Negative: Yes Physical Exam Triage Information Reviewed: Yes Vital Signs On Initial Exam: Initial Vitals Temp Pulse Resp BP Pulse Ox 98.7 F 75 22 141/65 95 12/01/18 07:11 12/01/18 07:11 12/01/18 07:11 12/01/18 07:11 12/01/18 07:11 Vital Signs Reviewed: Yes Appearance: Positive: Well-Appearing, No Pain Distress Skin: Positive: Warm, Skin Color Reflects Adequate Perfusion Head/Face: Positive: Normal Head/Face Inspection Eyes: Positive: EOMI, SCOTT ENT: Positive: Nasal congestion, Nasal drainage, TMs normal, Sinus tenderness Neck: Positive: Nontender Respiratory/Lung Sounds: Positive: Clear to Auscultation, Breath Sounds Present Cardiovascular: Positive: RRR. Negative: Murmur Abdomen Description: Negative: Distended Musculoskeletal: Positive: Strength/ROM Intact Neurological: Positive: Sensory/Motor Intact, Alert, Oriented to Person Place, Time, CN Intact II-III, Normal Gait, Speech Normal Psychiatric: Positive: Normal Diagnostics - Vital Signs Vital Signs Temp Pulse Resp BP Pulse Ox 12/01/18 07:11 98.7 F 75 22 141/65 95 - Laboratory Lab Statement: Any lab studies that have been ordered have been reviewed, and results considered in the medical decision making process. - Radiology chest pa lat Radiology Interpretation Completed By: Radiologist - patchy left base consolidation Disposition - Course Course Of Treatment: 78 yr old with left basilar consolidation, on chemo for MM. Recommend to the ER for labs and check further for sepsis. wants to drive her to [place]. They do not want an ambulance. She is hemodynamically stable. - Diagnoses Provider Diagnoses: Left lower lobe pneumonia, Hypertension Discharge - Sign-Out/Discharge Documenting (check all that apply): Patient Departure All imaging exams completed and their final reports reviewed: Yes - Discharge Plan Condition: Good Disposition: HOME-RECOMMEND TO ED Patient Education Materials: Bacterial Pneumonia (ED) Referrals: uAreliano Orozco MD [Primary Care Provider] - Additional Instructions: YOu need to go to the ER now after leaving here. YOu have declined an ambulance , and have stated you will be driving to [place] at [facility] [place]. - Billing Disposition and Condition Condition: GOOD Disposition: Home-Recommend to ED
== END 2018-12-01 08:23 | disposition home health service (06) ==
LOC: UCCORT 07:04
DX: J18.1 Lobar pneumonia, unspecified organism (principal); I10 Essential (primary) hypertension; R05 Cough; R09.81 Nasal congestion; C90.00 Multiple myeloma not having achieved remission; Z88.5 Allergy status to narcotic agent; M32.9 Systemic lupus erythematosus, unspecified; E78.00 Pure hypercholesterolemia, unspecified; Z87.19 Personal history of other diseases of the digestive system; Z87.891 Personal history of nicotine dependence
CPT/HCPCS: 71046; 99212; G0463

== ENCOUNTER 2018-12-01 09:14 | Emergency (ER) | payer MEDICARE ==
--- NOTE | 2018-12-01 09:44 | ED ---
Respiratory - HPI Summary HPI Summary: Pt is a 78 y/o female who presents to the ED c/o SOB. 3 days ago she began to have wet cough, SOB, rhinorrhea, and congestion. Sputum is yellow in color. Pt denies any fever or hemoptysis. She was sent here by the for further evaluation. A CXR done there revealed patchy left basilar consolidation, and pt was diagnosed with bacterial PNA of her left lower lobe. Pt has multiple myeloma and is a pt of Dr. Hernandez. PMHx PNA, lupus. She is a former smoker. - History of Current Complaint Chief Complaint: EDUpperRespComplaint Stated Complaint: COUGH/BACTERIAL PNUEMONIA PER PT Time Seen by Provider: 12/01/18 09:37 Hx Obtained From: Patient Onset/Duration: Gradual Onset, Lasting Days - 3, Still Present Timing: Constant Current Severity: Mild Pain Intensity: 2 Character: Cough (Productive), Dyspnea at Rest Sputum Amount: Moderate Sputum Color: Yellow Associated Signs and Symptoms: SOB, Nasal Congestion Related History: Similar Episode/Dx as - PNA - Allergy/Home Medications Allergies/Adverse Reactions: Allergies Allergy/AdvReac Type Severity Reaction Status Date / Time oxycodone Allergy Intermediate Abdominal Verified 12/01/18 09:20 Pain Home Medications: Home Medications Acyclovir* [Zovirax 400 MG TAB*] 800 mg PO BID 12/01/18 [History Confirmed 12/01] Scopolamine 1.5 mg* PATCH* [Transderm-Scop 1.5 mg Patch*] 1 patch TRANSDERM Q72H 12/01/18 [History Confirmed 12/01/18] Umeclidinium 62.5 MDI(NF) [Incruse ELLIPTA MDI (NF)] 62.5 mcg INH DAILY [History Confirmed 12/01/18] predniSONE [Prednisone 5 MG TAB] 7.5 mg PO DAILY 12/01/18 [History Confirmed 01/14] PMH/Surg Hx/FS Hx/Imm Hx Endocrine/Hematology History: Reports: Hx Systemic Lupus Erythematosus Denies: Hx Anticoagulant Therapy, Hx Diabetes, Hx Thyroid Disease Cardiovascular History: Reports: Hx Hypercholesterolemia, Hx Hypertension, Other Cardiovascular Problems/Disorders - Hx HTN Denies: Hx Pacemaker/ICD Respiratory History: Reports: Hx Pneumonia - x2 last 6 weeks Denies: Hx Asthma, Hx Chronic Obstructive Pulmonary Disease (COPD) GI History: Reports: Other GI Disorders - Hx diverticulitis Denies: Hx Ulcer History: Denies: Hx Renal Disease Musculoskeletal History: Comment Only: Hx Rheumatoid Arthritis - TONY Sensory History: Reports: Hx Contacts or Glasses Denies: Hx Hearing Aid Opthamlomology History: Reports: Hx Contacts or Glasses Psychiatric History: Denies: Hx Panic Disorder - Cancer History Cancer Type, Location and Year: Multiple Myeloma Hx Chemotherapy: No Hx Radiation Therapy: No - Surgical History Surgery Procedure, Year, and Place: Hysterectomy , varicose vein surgery . CATARACTS - Immunization History Date of Tetanus Vaccine: unk Date of Influenza Vaccine: unk Infectious Disease History: No Infectious Disease History: Reports: Hx Shingles Denies: Hx Hepatitis, Hx Human Immunodeficiency Virus (HIV), Traveled Outside the [place] in Last 30 Days - Family History Known Family History: Positive: Hypertension Negative: Respiratory Disease, Seizure Disorder - Social History Alcohol Use: None Hx Substance Use: No Substance Use Type: Reports: None Hx Tobacco Use: Yes Smoking Status (MU): Former Smoker Type: Cigarettes Amount Used/How Often: 1 PPD Length of Time of Smoking/Using Tobacco: 50 Years Have You Smoked in the Last Year: No Review of Systems Negative: Fever Positive: Nasal Discharge, Other - congestion Positive: Shortness Of Breath, Cough. Negative: Other - hemoptysis All Other Systems Reviewed And Are Negative: Yes Physical Exam - Summary Physical Exam Summary: GENERAL: Patient is a well-developed and nourished F who is lying comfortable in the stretcher. Patient is not in any acute respiratory distress. HEAD AND FACE: Normocephalic EYES: PERRLA, EOMI x 2. EARS: Hearing grossly intact. MOUTH: Oropharynx within normal limits. NECK: Supple, trachea is midline, no adenopathy, no JVD, no carotid bruit. CHEST: Symmetric, no tenderness at palpation LUNGS: Bibasilar crackles. No wheezing. CVS: Regular rate and rhythm, S1 and S2 present, no murmurs or gallops appreciated. ABDOMEN: Soft, non-tender. Bowel sounds are normal. No abnormal abdominal pulsations. EXTREMITIES: Full ROM in all major joints, no edema, no cyanosis or clubbing. NEURO: Alert and oriented x 3. No acute neurological deficits. Speech is normal and follows commands. SKIN: Dry and warm Triage Information Reviewed: Yes Vital Signs On Initial Exam: Initial Vitals Temp Pulse Resp BP Pulse Ox 99.6 F 77 16 197/68 94 12/01/18 09:16 12/01/18 09:16 12/01/18 09:16 12/01/18 09:16 12/01/18 09:16 Vital Signs Reviewed: Yes Diagnostics - Vital Signs Vital Signs Temp Pulse Resp BP Pulse Ox 12/01/18 09:16 99.6 F 77 16 197/68 94 - Laboratory Result Diagrams: 12/01/18 10:08 12/01/18 10:08 Lab Statement: Any lab studies that have been ordered have been reviewed, and results considered in the medical decision making process. - EKG 9:43 Cardiac Rate: NL - 76 bpm EKG Rhythm: Sinus Rhythm EKG Comparison: No Significant Change - similar to EKG in 2018 Summary of EKG Findings: LVH, ST depression in lateral leads Re-Evaluation - Re-Evaluation First Eval Re-Evaluation Time: 11:06 Change: Improved Comment: Pt feels better and would like to leave. Disposition - Course Course Of Treatment: Pt is a 78 y/o female who presents to the ED c/o SOB. 3 days ago she began to have wet cough, SOB, rhinorrhea, and congestion. A CXR done at the revealed patchy left basilar consolidation, and pt was diagnosed with bacterial PNA of her left lower lobe. Pt has multiple myeloma and is a pt of Dr. Hernandez. A physical exam revealed bibasilar crackles. An EKG revealed NSR, LVH, ST depression in lateral leads. In the course pt was given Levaquin. Bloodwork and UA obtained. As per Dr. Hernandez, she can be discharged with outpatient antibiotics. Final dx of pneumonia. I discussed results with patient , and she reports feeling better. She is hemodynamically stable and safe for discharge. Strict return precautions given and she will otherwise follow up with her PCP. - Diagnoses Provider Diagnoses: Pneumonia - Physician Notifications Discussed Care Of Patient With: Fran Hernandez Time Discussed With Above Provider: 11:10 Instructed by Provider To: Other - Pt can be discharged with outpatient antibiotics. Discharge - Sign-Out/Discharge Documenting (check all that apply): Patient Departure - Discharge Patient Received Moderate/Deep Sedation with Procedure: No - Discharge Plan Condition: Good Disposition: HOME Prescriptions: Levofloxacin TAB* [Levaquin TAB*] 500 mg PO DAILY 10 Days #10 tab Patient Education Materials: Pneumonia (ED) Referrals: Aureliano Orozco MD [Primary Care Provider] - (1-3 days) Additional Instructions: RETURN TO THE EMERGENCY DEPARTMENT FOR CHANGING OR WORSENING SYMPTOMS. - Billing Disposition and Condition Condition: GOOD Disposition: Home - Attestation Statements Document Initiated by Scribe: Yes Documenting Scribe: Zara Tovar Provider For Whom Scribe is Documenting (Include Credential): Brice Norman MD Scribe Attestation: Zara Briseno, scribed for Brice Norman MD on 12/02/18 at 0727. Scribe Documentation Reviewed: Yes Provider Attestation: The documentation as recorded by the Zara nava accurately reflects the service I personally performed and the decisions made by , Brice Norman MD Status of Scribe Document: Viewed
[2018-12-01 10:26] LABS: ABS Lymphocytes 0.3 10^3/ul (1.0-4.8); ABS Monocytes 0.7 10^3/ul (0-0.8); Eosinophil % 0.5 %; Hematocrit 33 % (35-47); Hemoglobin 11.3 g/dL (12.0-16.0); Lymphocyte % 6.1 %; Mean Corpuscular HGB Conc 34 g/dL (31-36); Mean Corpuscular Hemoglobin 33 pg (27-31); Mean Corpuscular Volume 97 fL (80-97); Mean Platelet Volume 8.2 fL (7.4-10.4); Nucleated Red Blood Cells % 0.1; Platelet Count 79 10^3/uL (150-450); Red Blood Count 3.46 10^6 /uL (3.70-4.87); Red Cell Distribution Width 16 % (10.5-15)
[2018-12-01 10:36] LABS: INR 1.02 (0.82-1.09)
[2018-12-01 10:44] LABS: Albumin 3.6 g/dL (3.2-5.2); Albumin/Globulin Ratio 1.6 (1-3); BUN/Creatinine Ratio 22.4 (8-20); Calcium 8.6 mg/dL (8.6-10.3); EGFR African American 121.3 (>60); EGFR Non-African American 100.3 (>60); Globulin 2.2 g/dL (2-4); Magnesium 1.9 mg/dL (1.9-2.7); Potassium 3.8 mmol/L (3.5-5.0); Total Bilirubin 0.9 mg/dL (0.2-1.0); Total Protein 5.8 g/dL (6.4-8.9); Troponin I 0.01 ng/mL (<0.04)
[2018-12-01 11:02] LABS: Urine Appearance Cloudy; Urine Bilirubin Negative (Negative); Urine Blood Negative (Negative); Urine Color Yellow; Urine Glucose Negative (Negative); Urine Ketones Trace (Negative); Urine Nitrite Negative (Negative); Urine Protein Negative (Negative); Urine Specific Gravity 1.019 (1.010-1.030); Urine Urobilinogen Negative (Negative)
[2018-12-01] MEDS ORDERED: Levofloxacin TAB* 500 MG PO ONE (11:11)
[2018-12-01 11:45] VITALS: BP 160/68
[2018-12-05 23:20] LABS: Immunoglobulin A 18 mg/dL (61 - 356); Immunoglobulin G 420 mg/dL (767 - 1590); Immunoglobulin M 8 mg/dL (37 - 286)
== END 2018-12-01 11:43 | disposition home or self-care (01) ==
LOC: ED 09:14
DX: J18.9 Pneumonia, unspecified organism (principal); R94.31 Abnormal electrocardiogram [ECG] [EKG]; R06.02 Shortness of breath; I10 Essential (primary) hypertension; E78.00 Pure hypercholesterolemia, unspecified; M32.9 Systemic lupus erythematosus, unspecified; Z88.5 Allergy status to narcotic agent; Z79.52 Long term (current) use of systemic steroids; Z87.01 Personal history of pneumonia (recurrent); Z85.89 Personal history of malignant neoplasm of other organs and systems; Z87.891 Personal history of nicotine dependence; C90.00 Multiple myeloma not having achieved remission; R05 Cough
CPT/HCPCS: 36415; 80053; 81003; 82784; 83605; 83735; 83880; 84484; 85025; 85610; 85730; 87040; 93005; 99284

== ENCOUNTER 2019-05-04 07:03 | Emergency (ER) | payer MEDICARE ==
--- OUTSIDE RECORDS SUMMARY | 2019-05-04 07:12 | XMS REPORT | Continuity of Care Document ---
:1940 External Reference #:[id number] Author Name Anuradha Mc N.P. 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 Onset: 04/01/2012 Medications Longterm (Current) Use Encounter Familia Auguste M.D. Onset: 10/2011 Thrombocytopenic disorder Familia Auguste M.D. Onset: 07/01/2012 Leukopenia Familia Auguste M.D. 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: 08/06/2014 Taking medication Zsofia Willam, MOT[employer] BUILDER W[employer]ER Onset: 08/25/2015 Social History Type Date Description Comments Sex Unknown Tobacco Use Start: Unknown End: Former Cigarette Smoker Unknown Smoking Status Reviewed: 04/07/19 Former Cigarette Smoker ETOH Use Rarely consumes alcohol Tobacco Use Start: Unknown End: Patient is a former smoker Unknown Recreational Drug Use Denies Drug Use Exercise Type/Frequency Does not exercise Allergies, Adverse Reactions, Alerts Active Allergies Reaction Severity Comments Date Penicillin 11/20/2010 Clindamycin Urticaria 09/29/2012 Medications Active Medications SIG Qnty Indications Ordering Date Provider Spironolactone 1/2 by mouth 45tabs I10 Anuradha Mc, 04/07/2019 25mg Tablets every day N.P. Losartan Potassium 1 by mouth every Zsofia Willam, 12/05/2015 100mg day MOTOR BUIL[employer] WINDER Tablets Mucinex 1 by mouth twice Unknown 600mg Tablets ER a day 12HR Prednisone 1 by mouth every Unknown 5mg Tablets day Scopolamine apply one patch Unknown 1mg/3Days every 3 days as Patches 72HR needed Vitamin B12 TR 1 by mouth every Unknown 1000mcg day Tablets ER Clonazepam take 1/2 to 1 Unknown 0.5mg Tablets tablet as needed anxiety and sleep Vitamin D 1 po qd Unknown Vitamin C 1 po qd Unknown Furosemide 1 by mouth every Unknown 20mg Tablets day Fluticasone Propionate Aureliano Orozco, 50mcg/Act Suspension Citalopram Hydrobromide 1 po qd Aureliano Orozco, 40mg Tablets Incruse Ellipta 1 puff daily Aureliano Orozco, 62.5mcg/Inh Aerosol Melphalan as directed Unknown 2mg Tablets Lyrica tid Unknown 100mg Capsules Amlodipine Besylate 1 tab by mouth 60tabs Qutaybeh S. 5mg daily Magda Thacker Tablets Zofran take 1 by mouth Unknown 4mg Tablets six times a day as needed for nausea Compazine 1 tab by mouth Unknown 10mg Tablets every 6 hours as needed for nausea Acyclovir take 1 tablet by Unknown 500mg Tablets mouth twice a day Acetaminophen 2 tablets by Unknown 325mg Tablets mouth twice a day as needed for pain/fever Simvastatin 1 po qd 30tabs Unknown 20mg Tablets Atenolol 1 po qd 90tabs Unknown 50mg Tablets Medications Administered in Office Medication SIG Qnty Indications Ordering Provider Date Inj, Regadenoson, 0.1 MG Davin Morris, DO [facility] 03/16/2019 Injection Technetium TC 99M Davin Morris, DO [facility] 03/16/2019 Tetrofosmin, Per Unit Dose Up To 40 Millicuries Injection Technetium TC 99M Davin Morris, DO [facility] 03/16/2019 Tetrofosmin, Per Unit Dose Up To 40 Millicuries Injection Immunizations CPT Code Status Date Vaccine Lot # [id number] Given 05/09/2016 Pneumonia Vaccine 82879 Given 08/30/2014 Pneumococcal Conjugate Vaccine 13 Valent For Intramuscular Use Q2037 Given 07/01/2012 Fluvirin Im 3Yrs And Older [id number] Vital Signs Date Vital Result Comment 04/07/2019 9:15am Height 62 inches 5'2" Weight 202.00 lb with shoes Heart Rate 60 /min BP Systolic Sitting 110 mmHg Lue BP Diastolic Sitting 60 mmHg Lue BP Systolic Standing 118 mmHg Lue BP Diastolic Standing 60 mmHg Lue BMI (Body Mass Index) 36.9 kg/m2 Ejection Fraction 65% Echo 11/08/17 02/03/2019 1:35pm Height 62 inches 5'2" Weight 194.00 lb Heart Rate 60 /min BP Systolic Sitting 100 mmHg LA, reg BP Diastolic Sitting 64 mmHg LA, reg BP Systolic Standing 110 mmHg LA, reg BP Diastolic Standing 64 mmHg LA, reg BMI (Body Mass Index) 35.5 kg/m2 Ejection Fraction >65% echo 11/08/17 Results Description No Information Available Procedures Date Code Description Status 03/16/2019 21572 Treadmill Interp/Report Only Completed 03/16/2019 94026 Stress Test Supervsn W/Out I/R Completed 03/16/2019 49042 Stress Test Completed 03/16/2019 72661 Myocardial Perfusion Imaging Tomographic (Spect) Completed Multiple Studies 02/13/2019 79190 Holter Monitor Review (24 hr)dr review & interp only Completed 02/12/2019 89327 ECG Monitor/Recording W/Visual Superimposition Completed Scanning 02/03/2019 59249 EKG Tracing & Interpretation Completed 04/04/2018 514330705 Diabetic Retinal Eye Exam Completed Medical Devices Description No Information Available Encounters Type Date Location Provider Dx Diagnosis Office Visit 02/03/2019 [facility] Qutayb S. R94.31 Abnormal 1:30p Kedar electrocardiogram [ECG] M.DAndrew [EKG] R06.02 Shortness of breath R42 Dizziness and giddiness I10 Essential (primary) hypertension E66.9 Obesity, unspecified I35.0 Nonrheumatic aortic (valve) stenosis Office Visit 11/27/2018 [facility]umat[facility] Jw M32.9 Systemic lupus 9:20a [facility] Vik, M.D. erythematosus, unspecified G62.9 Polyneuropathy, unspecified Assessments Date Code Description Provider 04/07/2019 I10 Essential (primary) hypertension Anuradha Mc, N.P. 04/07/2019 R42 Dizziness and giddiness Anuradha Mc, N.P. 04/07/2019 R94.31 Abnormal electrocardiogram [ECG] [EKG] Anuradha Mc N.P. 04/07/2019 I35.0 Nonrheumatic aortic (valve) stenosis Anuradha Mc, N.P. 03/16/2019 R42 Dizziness and giddiness Davin Morris, DO [facility] 03/16/2019 R42 Dizziness and giddiness Bladimir Thacker M.D. 03/16/2019 R94.31 Abnormal electrocardiogram [ECG] [EKG] Davin Morris, DO [facility] 03/16/2019 R42 Dizziness and giddiness Bladimir Thacker M.D. 03/16/2019 R06.02 Shortness of breath Davin Morris, DO [facility] 03/16/2019 R94.31 Abnormal electrocardiogram [ECG] [EKG] Bladimir Thacker M.D. 03/16/2019 I10 Essential (primary) hypertension Davin Morris, DO [facility] 03/16/2019 R94.31 Abnormal electrocardiogram [ECG] [EKG] Bladimir Thacker M.D. 03/16/2019 R06.02 Shortness of breath Bladimir Thacker M.D. 03/16/2019 R06.02 Shortness of breath Bladimir Thacker M.D. 03/16/2019 I10 Essential (primary) hypertension Bladimir Thacker M.D. 03/16/2019 I10 Essential (primary) hypertension Bladimir Thacker M.D. 02/13/2019 R42 Dizziness and giddiness Bladimir Thacker M.D. 02/12/2019 R94.31 Abnormal electrocardiogram [ECG] [EKG] Nurse Visit IC 02/12/2019 R42 Dizziness and giddiness Nurse Visit IC 02/03/2019 R94.31 Abnormal electrocardiogram [ECG] [EKG] Bladimir Thacker M.D. 02/03/2019 R06.02 Shortness of breath Bladimir Thacker M.D. 02/03/2019 R42 Dizziness and giddiness Bladimir Thacker M.D. 02/03/2019 I10 Essential (primary) hypertension Bladimir Thacker M.D. 02/03/2019 E66.9 Obesity, unspecified Bladimir Thacker M.D. 02/03/2019 I35.0 Nonrheumatic aortic (valve) stenosis Bladimir Thacker M.D. 11/27/2018 M32.9 Systemic lupus erythematosus, Jw Chery M.D. unspecified 11/27/2018 G62.9 Polyneuropathy, unspecified Jw Chery M.D. Plan of Treatment Future Appointment(s):05/12/2019 9:30 am - Anur[facility] N.PAndrew at [facility]04/07/2019 - Anuradha Mc N.PAndrewI10 Essential (primary) hypertensionNew Medication:Spironolactone 25 mg - 1/2 by mouth every dayFollow up:1-2mo OV Anuradha BP check 01/2020 OV QSMRecommendations:Decrease amlodipine to 5mg daily Start low dose aldactone 1/2 (25mg) tab daily Take BPs - call if top number > 145 or < 100R42 Dizziness and jrtkraudyD19.31 Abnormal electrocardiogram [ECG] [EKG]I35.0 Nonrheumatic aortic (valve) stenosis Functional Status Description No Information Available Mental Status Description No Information Available Referrals Description No Information Available
[2019-05-04 07:17] VITALS: BP 146/64
--- NOTE | 2019-05-04 07:41 | UC ---
Throat Pain/Nasal Cipriano HPI - HPI Summary HPI Summary: 78-year-old woman comes in with chief complaint of one week of upper respiratory tract infection symptoms. Patient is on chemotherapy for multiple myeloma. She scheduled later this week for chemotherapy. She's had chest congestion she feels congestion especially when she coughs. She has not had a chance to look at the sputum. No history of COPD or asthma. No complaint of wheezing. No fevers measured. Has been taking Mucinex which does help loosen the congestion some. - History of Current Complaint Chief Complaint: UCGeneralIllness Stated Complaint: COUGH Time Seen by Provider: 05/04/19 07:26 Pain Intensity: 0 - Allergies/Home Medications Allergies/Adverse Reactions: Allergies Allergy/AdvReac Type Severity Reaction Status Date / Time oxycodone Allergy Intermediate Abdominal Verified 05/04/19 07:17 Pain PMH/Surg Hx/FS Hx/Imm Hx Previously Healthy: Yes - MULTIPLE MYELOMA Endocrine History: Dyslipidemia Cardiovascular History: Hypertension Other History Of: Negative For: Anticoagulant Therapy - Surgical History Surgical History: Yes Surgery Procedure, Year, and Place: Hysterectomy , varicose vein surgery . CATARACTS - Family History Known Family History: Positive: Hypertension Negative: Respiratory Disease, Seizure Disorder - Social History Alcohol Use: None Substance Use Type: None Smoking Status (MU): Former Smoker Type: Cigarettes Amount Used/How Often: 1 PPD Length of Time of Smoking/Using Tobacco: 50 Years Have You Smoked in the Last Year: No When Did the Patient Quit Smoking/Using Tobacco: 25 YEARS AGO - Immunization History Most Recent Tetanus Shot: 6 years ago Review of Systems All Other Systems Reviewed And Are Negative: Yes Constitutional: Positive: Other - SEE HPI Skin: Positive: Negative Eyes: Positive: Negative ENT: Positive: Nasal Discharge, Sinus Congestion Respiratory: Positive: Cough, Other - SEE HPI Cardiovascular: Positive: Negative Gastrointestinal: Positive: Negative Motor: Positive: Negative Neurovascular: Positive: Negative Musculoskeletal: Positive: Negative Neurological: Positive: Negative Psychological: Positive: Negative Is Patient Immunocompromised?: No Physical Exam Triage Information Reviewed: Yes Appearance: Well-Appearing, No Pain Distress, Well-Nourished Vital Signs: Initial Vital Signs Temp 97.8 F 05/04/19 07:13 Pulse 58 05/04/19 07:13 Resp 18 05/04/19 07:13 BP 146/64 05/04/19 07:13 Pulse Ox 98 05/04/19 07:13 Vital Signs Reviewed: Yes Eye Exam: Normal Eyes: Positive: Conjunctiva Clear ENT: Positive: Pharynx normal, Nasal congestion, TMs normal Neck: Positive: Supple Respiratory: Positive: No respiratory distress, Rhonchi Cardiovascular: Positive: RRR Musculoskeletal: Positive: Strength Intact, ROM Intact Neurological: Positive: Alert Psychological: Positive: Age Appropriate Behavior Skin Exam: Normal Throat Pain/Nasal Course/Dx - Course Course Of Treatment: Radio Operator: Quinn Jain F ([id number]) Outside Sales Professional: JAYLEEN ( NUANCE) Report Date: 05/04/2019 07:35:00 Report Status: Final ====== Start of Report Content Patient Name: SYLVIA FAJARDO Medical Record#: [id number] Ordering Physician: James Randolph MD Acct.#: [id number] : Age: 78 Sex: F [facility] Exam Date: 05/04/19734 ADM Status: REG ER Order Information: CHEST PA LAT 2 VWS Accession Number: [id number] CPT: 44888 INDICATION: Cough and chest congestion on chemotherapy. COMPARISON: Comparison is made with prior chest x-ray studies from May 29, 2018, June 02, 2018 and December 01, 2018. TECHNIQUE: Dual-energy PA and lateral views of the chest were obtained. FINDINGS: The heart is within normal limits in size. Mediastinal and hilar contours appear within normal limits. The lungs are slightly hyperinflated and clear. No pleural effusion is seen. IMPRESSION: FINDINGS SUGGESTIVE OF COPD, NO EVIDENCE FOR ACUTE DISEASE. <Electronically signed by Quinn Jain MD in OV> 05/04/19 0800 Dictated By: Quinn Jain MD Dictated Date/Time : 05/04/19754 Transcribed Date/Time: 05/04/19754 Copy to: CC:Aureliano Orozco MD; Fran Hernandez MD; James Randolph MD Imaging - [facility] Imaging - [facility] Imaging - [facility] [address] [facility] [address] [place], [place] [id number] [place] [id number] [place] [address] ph [phone]) ph ([phone]) ph ([phone]) End of Report Content We discussed viral versus bacterial infections and the role of antibiotics. Due to the patient's potential for immunocompromise and her preference to start her on doxycycline. Follow-up her primary care doctor oncology go to the emergency room if worse or not improving. - Differential Dx/Diagnosis Provider Diagnosis: Bronchitis Discharge ED - Sign-Out/Discharge Documenting (check all that apply): Patient Departure All imaging exams completed and their final reports reviewed: Yes - Discharge Plan Condition: Stable Disposition: HOME Prescriptions: DOXYcycline CAP(*) [DOXYcycline 100MG CAP(*)] 100 mg PO BID #20 cap Patient Education Materials: Acute Bronchitis (ED) Referrals: Aureliano Orozco MD [Primary Care Provider] - Fran Hernandez MD [Medical Doctor] - Additional Instructions: FOLLOW UP WITH YOUR DOCTOR IF NOT COMPLETELY IMPROVED. GO TO THE EMERGENCY DEPARTMENT IF WORSE OR ANY QUESTIONS OR CONCERNS. - Billing Disposition and Condition Condition: STABLE Disposition: Home
== END 2019-05-04 08:42 | disposition home or self-care (01) ==
LOC: UCCORT 07:03
DX: J40 Bronchitis, not specified as acute or chronic (principal); C90.00 Multiple myeloma not having achieved remission; R09.81 Nasal congestion; Z88.5 Allergy status to narcotic agent; Z87.891 Personal history of nicotine dependence
CPT/HCPCS: 71046; 99212; G0463

== ENCOUNTER 2019-06-02 07:08 | Emergency (ER) | payer MEDICARE ==
--- OUTSIDE RECORDS SUMMARY | 2019-06-02 07:20 | XMS REPORT | Continuity of Care Document ---
:1940 External Reference #:[id number] Author Name Anuradha Mc N.P. (transmitted by agent of provider Chel Isaacs) Address [address] [place] [address] Care Team Providers Name Role Phone Aureliano Orozco MD - Internal Medicine Care Team Information Drop Forger Helper [phone] Problems Active Problems Provider Date Systemic lupus erythematosus Familia Auguste M.D. Onset: 04/01/2012 Medications Penitentiary (Current) Use Encounter Familia Auguste M.D. Onset: 10/2011 Thrombocytopenic disorder Familia Auguste M.D. Onset: 07/01/2012 Leukopenia Familia Auguste M.D. 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: 08/06/2014 Taking medication Raeofia Willam, FORMS DESIGNER Onset: 08/25/2015 Social History Type Date Description Comments Sex Unknown Tobacco Use Start: Unknown End: Former Cigarette Smoker Unknown Smoking Status Reviewed: 05/12/19 Former Cigarette Smoker ETOH Use Rarely consumes alcohol Tobacco Use Start: Unknown End: Patient is a former smoker Unknown Recreational Drug Use Denies Drug Use Exercise Type/Frequency Does not exercise Allergies, Adverse Reactions, Alerts Active Allergies Reaction Severity Comments Date Penicillin 11/20/2010 Clindamycin Urticaria 09/29/2012 Medications Active Medications SIG Qnty Indications Ordering Date Provider Losartan Potassium 1 by mouth every Zsofia Willam, 12/05/2015 100mg day [employer] DESIGNER Tablets Mucinex 1 by mouth twice Unknown 600mg Tablets ER a day 12HR Prednisone 1 by mouth every Unknown 5mg Tablets day Scopolamine apply one patch Unknown 1mg/3Days every 3 days as Patches 72HR needed Vitamin B12 TR 1 by mouth every Unknown 1000mcg day Tablets ER Clonazepam take 1/2 to 1 Unknown 0.5mg Tablets tablet as needed anxiety and sleep Furosemide 1 by mouth every Unknown 20mg Tablets day Fluticasone Propionate Aureliano Orozco, 50mcg/Act Suspension Citalopram 1 po qd Aureliano Orozco, Hydrobromide MD 40mg Tablets Incruse Ellipta 1 puff daily Aureliano Orozco, 62.5mcg/Inh Aerosol Melphalan as directed Unknown 2mg Tablets Lyrica tid Unknown 100mg Capsules Amlodipine Besylate 1 tab by mouth 60tabs Qutaybeh S. 5mg bid Magda Thacker Tablets Zofran take 1 by mouth Unknown 4mg Tablets six times a day as needed for nausea Compazine 1 tab by mouth Unknown 10mg Tablets every 6 hours as needed for nausea Acyclovir take 1 tablet by Unknown 500mg Tablets mouth twice a day Acetaminophen 2 tablets by Unknown 325mg mouth twice a day Tablets as needed for pain/fever Simvastatin 1 po qd 30tabs Unknown 20mg Tablets Atenolol 1 po qd 90tabs Unknown 50mg Tablets History Medications Spironolactone 1/2 by mouth 45tabs I10 Anuradha Mc, 04/07/2019 - 25mg Tablets every day N.P. 05/08/2019 Medications Administered in Office Medication SIG Qnty Indications Ordering Provider Date Inj, Regadenoson, 0.1 MG Davin Morris, DO [facility] 03/16/2019 Injection Technetium TC 99M Davin Morris, DO [facility] 03/16/2019 Tetrofosmin, Per Unit Dose Up To 40 Millicuries Injection Technetium TC 99M Davin Morris, DO [facility] 03/16/2019 Tetrofosmin, Per Unit Dose Up To 40 Millicuries Injection Immunizations CPT Code Status Date Vaccine Lot # [id number] Given 05/09/2016 Pneumonia Vaccine 08336 Given 08/30/2014 Pneumococcal Conjugate Vaccine 13 Valent For Intramuscular Use Q2037 Given 07/01/2012 Fluvirin Im 3Yrs And Older [id number] Vital Signs Date Vital Result Comment 05/12/2019 9:27am Height 62 inches 5'2" Weight 202.00 lb with shoes Heart Rate 60 /min BP Systolic Sitting 118 mmHg lue reg cuff BP Diastolic Sitting 60 mmHg lue reg cuff BP Systolic Standing 124 mmHg lue reg cuff BP Diastolic Standing 60 mmHg lue reg cuff Respiratory Rate 14 /min BMI (Body Mass Index) 36.9 kg/m2 Ejection Fraction >65% echo. 11/08/17 05/12/2019 9:13am Height 62 inches 5'2" Weight 203.00 lb with shoes BMI (Body Mass Index) 37.1 kg/m2 Results Description No Information Available Procedures Date Code Description Status 03/16/2019 98780 Treadmill Interp/Report Only Completed 03/16/2019 81169 Stress Test Supervsn W/Out I/R Completed 03/16/2019 27392 Stress Test Completed 03/16/2019 29951 Myocardial Perfusion Imaging Tomographic (Spect) Completed Multiple Studies 02/13/2019 84318 Holter Monitor Review (24 hr)dr review & interp only Completed 02/12/2019 02698 ECG Monitor/Recording W/Visual Superimposition Completed Scanning 02/03/2019 77576 EKG Tracing & Interpretation Completed 04/04/2018 585326101 Diabetic Retinal Eye Exam Completed Medical Devices Description No Information Available Encounters Type Date Location Provider Dx Diagnosis Office Visit 04/07/2019 [facility] Anuradha Mc, I10 Essential ( primary) 9:30a Of Laboratory Immunologist N.P. hypertension R42 Dizziness and giddiness R94.31 Abnormal electrocardiogram [ECG] [EKG] I35.0 Nonrheumatic aortic (valve) stenosis R60.0 Localized edema Office 02/03/2019 Sidra Garrison S. R94.31 Abnormal Visit 1:30p Cardiology Magda Thacker electrocardiogram [ECG] [EKG] R06.02 Shortness of breath R42 Dizziness and giddiness I10 Essential (primary) hypertension E66.9 Obesity, unspecified I35.0 Nonrheumatic aortic (valve) stenosis Office Visit 11/27/2018 Rheumatology Jw M32.9 Systemic lupus 9:20a Services [facility] Sung Chery M.D. erythematosus, unspecified G62.9 Polyneuropathy, unspecified Assessments Date Code Description Provider 05/12/2019 I10 Essential (primary) hypertension Anuradha Mc, N.P. 05/12/2019 R42 Dizziness and giddiness Anuradha Mc, N.P. 05/12/2019 R94.31 Abnormal electrocardiogram [ECG] [EKG] Anuradha Mc, N.P. 05/12/2019 I35.0 Nonrheumatic aortic (valve) stenosis Anuradha Mc, N.P. 05/12/2019 R60.0 Localized edema Anuradha Mc, N.P. 04/07/2019 I10 Essential (primary) hypertension Anuradha Mc, N.P. 04/07/2019 R42 Dizziness and giddiness Anuradha Mc, N.P. 04/07/2019 R94.31 Abnormal electrocardiogram [ECG] [EKG] Anuradha Mc, N.P. 04/07/2019 I35.0 Nonrheumatic aortic (valve) stenosis Anuradha Mc, N.P. 04/07/2019 R60.0 Localized edema Anuradha Mc, N.P. 03/16/2019 R42 Dizziness and giddiness Davin Morris DO [facility] 03/16/2019 R42 Dizziness and giddiness Bladimir Thacker M.D. 03/16/2019 R94.31 Abnormal electrocardiogram [ECG] [EKG] Davin Morris DO [facility] 03/16/2019 R42 Dizziness and giddiness Bladimir Thacker M.D. 03/16/2019 R06.02 Shortness of breath Davin Morris DO [facility] 03/16/2019 R94.31 Abnormal electrocardiogram [ECG] [EKG] Bladimir Thacker M.D. 03/16/2019 I10 Essential (primary) hypertension Davin Morris DO [facility] 03/16/2019 R94.31 Abnormal electrocardiogram [ECG] [EKG] Bladimir [...] unspecified Jw Chery M.D. Plan of Treatment 05/12/2019 - Anuradha Mc, N.P.I10 Essential (primary) hypertensionNew Orders: Ambulatory Blood Pressure Monitor, Ordered: 05/12/19Overnight Oximetry, Ordered : 05/12/19Follow up:01/2020 OV QSMR42 Dizziness and fnacbihmrS32.31 Abnormal electrocardiogram [ECG] [EKG]I35.0 Nonrheumatic aortic (valve) hynhyvgzE94.0 Localized edema Functional Status Description No Information Available Mental Status Description No Information Available Referrals Description No Information Available
[2019-06-02 07:28] VITALS: BP 117/40
--- NOTE | 2019-06-02 08:07 | UC ---
Respiratory Complaint HPI - HPI Summary HPI Summary: cough x 1 week cough is dry , harsh, worse with deep breathing, better with rest denies any cold symptoms, no runny nose, no nasal congestion no sore throat, denies any fever or chills, no wheezing, + sob on exertion, history of MM on chemo - History of Current Complaint Chief Complaint: UCRespiratory Stated Complaint: COUGH,CONGESTION Time Seen by Provider: 06/02/19 07:39 Hx Obtained From: Patient Onset/Duration: Gradual Onset, Lasting Days - 7 Timing: Constant Severity Initially: Moderate Severity Currently: Moderate Pain Intensity: 0 Character: Cough: Nonproductive Aggravating Factors: Exertion, Deep Breaths Alleviating Factors: Nothing Associated Signs And Symptoms: Positive: Dyspnea. Negative: Fever, Chills, Wheezing, Hemoptysis, Dizziness, Calf Pain, Calf Swelling, Edema, URI, Nasal Congestion, Hoarseness, Sinus Discomfort - Allergies/Home Medications Allergies/Adverse Reactions: Allergies Allergy/AdvReac Type Severity Reaction Status Date / Time oxycodone AdvReac Intermediate Abdominal Verified 06/02/19 07:22 Pain Home Medications: Home Medications Aspirin 81 mg CHEW TAB* [Aspirin Low Dose TAB*] 81 mg PO DAILY 06/02/19 [ History Confirmed 06/02/19] Gabapentin CAP(*) [Neurontin 300 CAP(*)] 300 mg PO SEE INSTRUCTIONS 06/02/19 [ History Confirmed 06/02/19] Hydroxychloroquine TAB* [Plaquenil TAB*] 400 mg PO DAILY 06/02/19 [History Confirmed 06/02/19] Mycophenolate Mofetil CAP(*) [Cellcept CAP(*)] 500 mg PO BID 06/02/19 [History Confirmed 06/02/19] Omeprazole 20 mg PO BID 06/02/19 [History Confirmed 06/02/19] PMH/Surg Hx/FS Hx/Imm Hx - Additional Past Medical History Additional PMH: hx of MM on Chemo Cardiovascular History: Cardiac Disease, Hypertension Other History Of: Negative For: Anticoagulant Therapy - Surgical History Surgical History: Yes Surgery Procedure, Year, and Place: Hysterectomy , varicose vein surgery . CATARACTS - Family History Known Family History: Positive: Hypertension Negative: Respiratory Disease, Seizure Disorder - Social History Alcohol Use: None Substance Use Type: None Smoking Status (MU): Former Smoker Type: Cigarettes Amount Used/How Often: 1 PPD Length of Time of Smoking/Using Tobacco: 50 Years Have You Smoked in the Last Year: No When Did the Patient Quit Smoking/Using Tobacco: 35 YEARS AGO - Immunization History Most Recent Tetanus Shot: 6 years ago Review of Systems All Other Systems Reviewed And Are Negative: Yes Constitutional: Positive: Negative Eyes: Positive: Negative ENT: Positive: Negative Respiratory: Positive: Shortness Of Breath, Cough Cardiovascular: Positive: Negative Is Patient Immunocompromised?: No Physical Exam Triage Information Reviewed: Yes Appearance: Well-Appearing, No Pain Distress, Well-Nourished Vital Signs: Initial Vital Signs Temp 97.9 F 06/02/19 07:23 Pulse 59 06/02/19 07:23 Resp 18 06/02/19 07:23 BP 117/40 06/02/19 07:23 Pulse Ox 98 06/02/19 07:23 Vital Signs Reviewed: Yes Eye Exam: Normal Eyes: Positive: Conjunctiva Clear ENT: Positive: Normal ENT inspection, Hearing grossly normal, Pharynx normal Respiratory: Positive: Chest non-tender, No respiratory distress, Crackles Cardiovascular: Positive: RRR Abdominal Exam: Normal Skin Exam: Normal Diagnostics - Radiology No standard instances Radiology Interpretation Completed By: Radiologist Summary of Radiographic Findings: chest xray report : IMPRESSION: FINDINGS CONSISTENT WITH COPD, NO EVIDENCE FOR ACUTE DISEASE. Respiratory Course/Dx - Differential Dx/Diagnosis Provider Diagnosis: Bronchitis Discharge ED - Sign-Out/Discharge Documenting (check all that apply): Patient Departure All imaging exams completed and their final reports reviewed: Yes - Discharge Plan Condition: Stable Disposition: HOME Prescriptions: Benzonatate CAP* [Tessalon 100 MG CAP*] 100 mg PO TID #21 cap Patient Education Materials: Acute Bronchitis (ED) Referrals: Aureliano Orozco MD [Primary Care Provider] - 5 Days - Billing Disposition and Condition Condition: STABLE Disposition: Home
== END 2019-06-02 08:22 | disposition home or self-care (01) ==
LOC: UCCORT 07:08
DX: J40 Bronchitis, not specified as acute or chronic (principal); I10 Essential (primary) hypertension; Z88.5 Allergy status to narcotic agent; Z79.82 Long term (current) use of aspirin; Z87.891 Personal history of nicotine dependence
CPT/HCPCS: 71046; 99212; G0463

== ENCOUNTER 2019-09-07 08:40 | Observation (INO) | payer MEDICARE ==
--- OUTSIDE RECORDS SUMMARY | 2019-09-07 08:52 | XMS REPORT | Summary of Care ---
:1940 Author Organization [facility] Address 1 [facility] [place] [address] Care Team Providers Name Role Phone Aureliano Orozco Primary Care Provider Reason for Visit Reason Comments Follow Up 1 month Encounter Details Date Type Department Care Team Description 08/11/2019 Office Visit [facility] Aureliano Orozco MD Pneumonia due to infectious organism, unspecified laterality, unspecified part of lung (Primary Dx); Medicine [address] Essential hypertension; [address] [place] [address] Occipital stroke ([facility]); [place] [address] Memory loss; [phone] Multiple myeloma not having achieved remission ([facility]); Systemic lupus erythematosus, unspecified SLE type, unspecified organ involvement status ([facility]) Allergies Active Allergy Reactions Severity Noted Date Comments Clindamycin Hcl GI Reaction 05/01/2011 Penicillins Hives 11/27/2007 documented as of this encounter (statuses as of 08/20/2019) Medications Medication Sig Dispensed Refills Start End Date Status Date clotrimazole-betamet APPLY TO 45 g 5 Active hasone (LOTRISONE) AFFECTED area 7 1-0.05 % Apply under breasts externally Cream ONCE DAILY NEEDED clonazePAM by Does not 0 Active (KLONOPIN) 0.5 MG apply route 8 Oral Tab THREE TIMES DAILY NEEDED. ondansetron (ZOFRAN) Take 4 mg by 0 Active 4 MG Oral Tab mouth EVERY EIGHT HOURS NEEDED for nausea. VENTOLIN HFA 108 (90 INHALE TWO 1 Active Base) MCG/ACT PUFFS BY MOUTH 8 Inhalation Aero Soln EVERY 4 HOURS NEEDED predniSONE 0 Active (DELTASONE) 5 MG 8 Oral Tab LYRICA 100 MG Oral THREE TIMES 0 Active Cap DAILY. 8 Cholecalciferol Take by mouth 0 Active (VITAMIN D3) 1000 DAILY. units Oral Cap fluticasone [place] 2 Sprays 16 g 0 Active (FLONASE) 50 MCG/ACT in nose TWICE 9 Nasal Suspension DAILY. Losartan Potassium TAKE ONE 90 Tab 3 Active 100 MG Oral Tab TABLET BY 9 MOUTH EVERY DAY atenolol (TENORMIN) TAKE ONE 90 Tab 3 Active 50 MG Oral Tab TABLET BY 9 MOUTH EVERY DAY acyclovir (ZOVIRAX) TAKE ONE 180 Tab 3 Active 800 MG Oral Tab TABLET BY 9 MOUTH TWICE A DAY furosemide (LASIX) DAILY. 2 Active 20 MG Oral Tab 9 INCRUSE ELLIPTA 62.5 INHALE ONE 30 Each 5 Active MCG/INH Inhalation PUFF BY MOUTH 9 AEROSOL POWDER, EVERY DAY BREATH ACTIVATED citalopram (CELEXA) TAKE ONE 90 Tab 1 Active 40 MG Oral Tab TABLET BY 9 MOUTH EVERY DAY Cyanocobalamin Take 25 mcg by 0 Active (VITAMIN B-12) 50 mouth. MCG Oral Tab potassium chloride Take 20 mEq by 0 Active (KLOR-CON) 20 MEQ mouth DAILY. Oral Pack spironolactone Take 12.5 mg 0 Active (ALDACTONE) 25 MG by mouth Oral Tab DAILY. benzonatate Take 100 mg by 0 Active (TESSALON PERLES) mouth TWO 100 MG Oral Cap TIMES DAILY NEEDED for cough. atorvastatin Take 1 Tab by 90 Tab 3 Active (LIPITOR) 20 MG Oral mouth DAILY. 0 Tab Pantoprazole Sodium Take 40 mg by 90 Packet 3 Active 40 MG Oral Pack mouth EVERY 0 MORNING. amLodipine (NORVASC) Take 1 Tab by 0 Active 5 MG Oral Tab mouth DAILY. 0 sulfamethoxazole-tri Take 1 Tab by 0 Active methoprim (BACTRIM mouth THREE 0 DS, SEPTRA DS) TIMES PER 800-160 MG Oral Tab WEEK. Prescribed by Dr Hernandez Aspirin 81 MG Oral Take 1 Tab by 0 Active Tab mouth DAILY. 0 amLodipine (NORVASC) Take 1 Tab by 90 Tab 3 08/11/19 Discontinued 5 MG Oral Tab mouth DAILY. 8 20 (Dose Adjustment) atorvastatin Take 20 mg by 0 08/11/19 Discontinued (LIPITOR) 20 MG Oral mouth DAILY. 20 (Reorder) Tab Pantoprazole Sodium Take 40 mg by 0 08/11/19 Discontinued 40 MG Oral Pack mouth. 20 (Reorder) documented as of this encounter (statuses as of 08/20/2019) Active Problems Problem Noted Date Post herpetic neuralgia 10/15/2012 High cholesterol 09/10/2011 BMI 31.0-31.9,adult 03/13/2011 Overview: This patient's BMI has been calculated and is above average, and BMI management plan is completed. She has too many comorbidities that are active right now. Once these have stabilized we will re-look at this problem Multiple myeloma 09/30/2007 Overview: "smoldering", no tx as of 02/02, watched closely by Dr Hernandez, with associated serum sickness episodes, pancytopenia. Essential hypertension 02/28/2000 Anxiety state 02/28/2000 Panic ATTACKS 02/28/2000 Systemic lupus erythematosus Shingles documented as of this encounter (statuses as of 08/20/2019) Immunizations Name Administration Dates Next Due H1N1 Injectable Adult 05/29/2009 Influenza (IM) Preservative Free 05/28/2015, 05/14/2013, 05/08/2010 Influenza Vaccine High Dose 06/01/2019, 04/28/2018, 05/04/2017, 05/09/2016, 04/07/2014 Influenza Vaccine Whole 05/26/2003, 06/09/2002, 07/24/1995 Pneumococcal Conjugate Vaccine 05/09/2016 Pneumococcal Conjugate(13 Valent) 08/30/2014 dT Vaccine 07/29/2005 documented as of this encounter Social History Tobacco Use Types Packs/Day Years Used Date Former Smoker Cigarettes 1 20 Quit: 11/26/2002 Smokeless Tobacco: Never Used Alcohol Use Drinks/Week oz/Week Comments Yes 1 Standard drinks or equivalent 1.0 every Sat Sex Assigned at Date Recorded Not on file Job Start Date Occupation Industry Not on file Not on file Not on file Travel History Travel Start Travel End No recent travel history available. documented as of this encounter Last Filed Vital Signs Vital Sign Reading Time Taken Comments Blood Pressure 108/60 08/11/2019 1:05 PM EST Pulse 69 08/11/2019 1:05 PM EST Temperature 36.6 08/11/2019 1:05 PM EST C (97.8 F) Respiratory Rate - - Oxygen Saturation 99% 08/11/2019 1:05 PM EST Inhaled Oxygen Concentration - - Weight 89.9 kg (198 lb 1.6 oz) 08/11/2019 1:05 PM EST Height - - Body Mass Index 35.09 03/04/2019 8:52 AM EDT documented in this encounter Patient Instructions Patient InstructionsAureliano Orozco MD - 08/11/2019 1:00 PM ESTContinue same medicines, ok to take Sulfa as prescribed by Dr Hernandez Stop potassium Reduce amlodipine to 5 mg , 1 a day . Goal for BP are 130/80. Get lab work here next week follow up with Dr Orozco in about 6 weeks. documented in this encounter Progress Notes Aureliano Orozco MD - 08/11/2019 1:00 PM EST PATIENT: Rosetta Kumar : 1940 DATE OF SERVICE: 08/11/2019 CHIEF COMPLAINT: Chief Complaint Patient presents with Follow Up 1 month Subjective HISTORY OF PRESENT ILLNESS: Rosetta Kumar is a 78-y.o. female. HPI Recent hospitalization in [place] August 03 through August 05, 2019, with pneumonia, UTI. Doing better now. Recent BP's low. atovastatin renewed. Getting treatment with Dr Hernandez, who also prescribed sulfa 1 tab 3x week. Concern re potassium levels. Taking potassium supplement also drugs that spare potassium. We will check basic metabolic profile ? Re PT. told her okay to continue it. She saw a tumbling machine operator yesterday, work-up in progress for antiphospholipid syndrome. Past Medical History: Diagnosis Date Anxiety 02/28/2000 HTN (hypertension), benign Left wrist fracture 6/5/13 nondisplaced intra-articular fx of the distal radius Lupus (HCC) Multiple myeloma Panic attack Pneumonia, organism unspecified(486) 10/31, 3. Postmenopausal Shingles Family History Problem Relation Age of Onset Hypertension Father Hypertension Mother Cancer Child COLON Current Outpatient Medications Medication Sig acyclovir (ZOVIRAX) 800 MG Oral Tab TAKE ONE TABLET BY MOUTH TWICE A DAY amLodipine (NORVASC) 5 MG Oral Tab Take 1 Tab by mouth DAILY. (Patient taking differently: Take 5 mg by mouth TWICE DAILY. Takes at HS and early am) atenolol (TENORMIN) 50 MG Oral Tab TAKE ONE TABLET BY MOUTH EVERY DAY atorvastatin (LIPITOR) 20 MG Oral Tab Take 20 mg by mouth DAILY. benzonatate (TESSALON PERLES) 100 MG Oral Cap Take 100 mg by mouth TWO TIMES DAILY NEEDED for cough. Cholecalciferol (VITAMIN D3) 1000 units Oral Cap Take by mouth DAILY. citalopram (CELEXA) 40 MG Oral Tab TAKE ONE TABLET BY MOUTH EVERY DAY clonazePAM (KLONOPIN) 0.5 MG Oral Tab by Does not apply route THREE TIMES DAILY NEEDED. clotrimazole-betamethasone (LOTRISONE) 1-0.05 % Apply externally Cream APPLY TO AFFECTED areaunder breasts ONCE DAILY NEEDED Cyanocobalamin (VITAMIN B-12) 50 MCG Oral Tab Take 25 mcg by mouth. fluticasone (FLONASE) 50 MCG/ACT Nasal Suspension [place] 2 Sprays in nose TWICE DAILY. furosemide (LASIX) 20 MG Oral Tab DAILY. INCRUSE ELLIPTA 62.5 MCG/INH Inhalation AEROSOL POWDER, BREATH ACTIVATED INHALE ONE PUFF BY MOUTH EVERY DAY Losartan Potassium 100 MG Oral Tab TAKE ONE TABLET BY MOUTH EVERY DAY LYRICA 100 MG Oral Cap THREE TIMES DAILY. ondansetron (ZOFRAN) 4 MG Oral Tab Take 4 mg by mouth EVERY EIGHT HOURS NEEDED for nausea. Pantoprazole Sodium 40 MG Oral Pack Take 40 mg by mouth. potassium chloride (KLOR-CON) 20 MEQ Oral Pack Take 20 mEq by mouth DAILY. predniSONE (DELTASONE) 5 MG Oral Tab spironolactone (ALDACTONE) 25 MG Oral Tab Take 12.5 mg by mouth DAILY. VENTOLIN HFA 108 (90 Base) MCG/ACT Inhalation Aero Soln INHALE TWO PUFFS BY MOUTH EVERY 4 HOURS NEEDED No current facility-administered medications for this visit. Allergies Allergen Reactions Clindamycin Hcl GI Reaction Pcn [Penicillins] Hives Social History Socioeconomic History Marital status: Spouse name: Not on file Number of children: Not on file Years of education: Not on file Highest education level: Not on file Occupational History Not on file Social Needs Financial resource strain: Not on file Food insecurity Worry: Not on file Inability: Not on file Transportation needs Medical: Not on file Non-medical: Not on file Tobacco Use Smoking status: Former Smoker Packs/day: 1.00 Years: 20.00 Pack years: 20.00 Types: Cigarettes Last attempt to quit: 11/26/2002 Years since quittin.7 Smokeless tobacco: Never Used Substance and Sexual Activity Alcohol use: Yes Alcohol/week: 1.0 standard drinks Types: 1 Standard drinks or equivalent per week Comment: every Sat Drug use: No Sexual activity: Not on file Lifestyle Physical activity Days per week: Not on file Minutes per session: Not on file Stress: Not on file Relationships Social connections Talks on phone: Not on file Gets together: Not on file Attends denominational service: Not on file Active member of club or organization: Not on file Attends meetings of clubs or organizations: Not on file Relationship status: Not on file Intimate partner violence Fear of current or ex partner: Not on file Emotionally abused: Not on file Physically abused: Not on file Forced sexual activity: Not on file Other Topics Concern Not on file Social History Narrative Not on file REVIEW OF SYSTEMS: Review of Systems Constitutional: Positive for malaise/fatigue. Negative for fever and weight loss. HENT: Negative for congestion. Eyes: Positive for blurred vision. Respiratory: Positive for cough, sputum production and shortness of breath. Negative for hemoptysis and wheezing. Cardiovascular: Negative for chest pain. Gastrointestinal: Negative for abdominal pain. Genitourinary: Positive for dysuria. Musculoskeletal: Positive for joint pain. Skin: Negative for rash. Neurological: Negative for dizziness. Endo/Heme/Allergies: Negative for polydipsia. Psychiatric/Behavioral: Positive for memory loss. Objective PHYSICAL EXAM: VITALS: BP 108/60 | Pulse 69 | Temp 97.8 F (36.6 C) (Tympanic) | Wt 198 lb 1.6 oz (89.9 kg) | SpO2 99% | BMI 35.09 kg/m Body mass index is 35.09 kg/m. Physical Exam Alert, oriented, in no acute distress. Vitals as above. HEENT: Normocephalic, atraumatic. SCOTT, EOMI. Mouth and ears unremarkable. Neck: No palpable lymphadenopathy in the submandibular, submental, anterior cervical, posterior cervical, or occipital chains, nor in the supraclavicular spaces. No JVD, thyromegaly. LUNGS: clear. HEART: Regular rate and rhythm. ABDOMEN: positive bowel sounds, soft, nontender, no hepatosplenomegaly, masses or bruits. EXTREMITIES: no cyanosis, clubbing, or edema. ASSESSMENT / IMPRESSION: ICD-9-CM ICD-10-CM 1. Pneumonia due to infectious organism, unspecified laterality, unspecified part of lung 136.9 J18.9 484.8 2. Essential hypertensionovertreated. Reduce amlodipine to 5 mg a day 401.9 I10 BASIC METABOLIC PANEL 3. Occipital stroke (HCC)history of, with visual field cut, stable 434.91 I63.9 4. Memory loss due to age and or other comorbidities including stroke stable 780.93 R41.3 5. Multiple myeloma not having achieved remission (HCC)under treatment with Dr. Jennings 203.00 C90.00 6. Systemic lupus erythematosus, unspecified SLE type, unspecified organ involvement status (HCC)fairly quiescent now but will get rheumatology evaluation 710.0 M32.9 TCM Statement. Review of the hospitalization: I am seeing for transition of care following hospitalization. The date of discharge was: August 05, 2019 The discharge diagnosis was pneumonia, healthcare facility acquired. I reviewed the discharge summary, discharge instructions, and pertinent additional documentation obtained during hospitalization. I reconciled the medications. I also reviewed the Transition of Care documentation done by staff. The tests that were not available at the time of discharge were reviewed. Additional tests which are not yet available include: None Coordination of care. - I am satisfied that appropriate referrals are in place to deal with the problems identified during hospitalization, and that the patient has adequate community resources and support in place. - Additional testing related to hospitilization was requested today: yes See orders. I confirmed the patient's understanding of the diagnosis and plan of care. Specific education that was provided today: Patient Instructions Continue same medicines, ok to take Sulfa as prescribed by Dr Bael Stop potassium Reduce amlodipine to 5 mg , 1 a day . Goal for BP are 130/80. Get lab work here next week follow up with Dr Orozco in about 6 weeks. The current and discharge medications were reconciled by an RN, telephonically on August 07, 2018 The source document was Electronic summary of care Author: Aureliano Orozco MD 08/11/2019 13:38 documented in this encounter Plan of Treatment Date Type Specialty Care Team Description 09/22/2019 Office Visit Internal Medicine Aureliano Orozco MD [address] [place], [place] [id number] Health Maintenance Due Date Last Done Comments ZOSTER IMMUNIZATION SERIES 11/16/1989 (1 of 2) PNEUMOCOCCAL 65+YRS (2 of 2 05/09/2017 05/09/2016, 08/30/2014 - PPSV23) MEDICARE ANNUAL WELLNESS 07/24/2017 07/24/2016 (Postponed), VISIT 07/20/2015 (Previously completed), 09/10/2011 FALL RISK ASSESSMENT 03/04/2020 03/04/2019, 03/04/2019 DEPRESSION SCREENING 05/11/2020 05/11/2019, 05/11/2019 OSTEOPOROSIS SCREENING 01/13/2024 01/12/2014, 09/25/2011, 08/22/2009, Additional history exists INFLUENZA VACCINE Completed 06/01/2019, 04/28/2018, 05/04/2017, Additional history exists HEPATITIS A IMMUNIZATION Aged Out No longer eligible SERIES based on patient's age to complete this topic HPV IMMUNIZATION SERIES Aged Out No longer eligible based on patient's age to complete this topic MENINGOCOCCAL VACCINE IMM Aged Out No longer eligible based on patient's age to complete this topic documented as of this encounter Goals Goal Patient Goal Associated Recent Patient-Stated? Author Type Problems Progress Blood Pressure Blood Pressure Essential 108/60 Sandra Orozco, < 140/90 hypertension (08/11/2019 MD Aureliano 1:05 PM EST) Note: Hypertension Care Plan Based on the patient's clinical history and according to JNC 8 guidelines target blood pressure goal is less than 140/90. Based on the patient's last blood pressure of BP: 142/70 mmHg the patient is at above goal. As your provider, it is important that I advise you regarding: your current medications and help you with any challenges you may face taking your medications as directed (ex. instructions, cost, side effects, and interactions). lifestyle changes: exercise, weight reduction, diet, dietary sodium reduction , medication compliance and moderation of alcohol consumption your clinical goals and how you can achieve success: weight reduction, exercise plan and diet improvements medication management: adjusted medications as appropriate patient education/self-management tools provided: Current self-management tools adequate To successfully manage my Hypertension I will: monitor my blood pressure daily, understanding that my goal is less than 140/ 90 per my healthcare provider's recommendation. I will schedule an appointment with my provider if consistent abnormal readings greater than 160/100. take medications every day as prescribed by my healthcare provider and if unable to take them I will discuss with my provider. monitor for symptoms of chest pain, chest tightness/pressure, irregular heartbeat, persistent dizziness, radiating arm pain, and neck or jaw pain. If any of these symptoms are noticed I will seek medical attention immediately by calling 911 exercise/walk 30 minutes 5 day(s) per week. If I experience chest pain, chest tightness, or shortness of breath, I will seek medical attention immediately. follow a diet rich in fruits, vegetables, and low-fat dairy products with reduced content of saturated & total fat. I will reduce my sodium intake daily. An example is the DASH diet. To obtain more information please refer to the DASH Eating Plan listed in Educational Resources. record my blood pressure results. [employer] is safe and secure way for you to do this in your medical record online. try to obtain an ideal body weight. My recent weight was Weight: 184 lb ( 83.462 kg). My weight loss goal for my next office visit is 180 lb. limit alcohol consumption. For men two drinks per day and women one drink per day. if currently smoking, will discuss how to quit smoking with my healthcare provider and work towards quitting. Educational Resources: National Heart, Lung, & Blood [place] http://nhlbi.nih.gov/hbp/index.html The DASH Diet Eating Plan http://www.nhlbi.nih.gov/health/health-topics/ topics/dash/ Academy of Nutrition & DIetetics http://eatright.org National Smoking Cessation Site http://smokefree.gov Blood Pressure < Blood Pressure 108/60 (08/11/2019 1:05 No Aureliano Orozco MD 140/90 PM EST) Note: This is an individualized treatment (blood pressure) goal for Rosetta Kumar: Displayed above (on the left) is your goal for blood pressure control. Your most recent blood pressure is also shown above, on the right. You should try to achieve blood pressures that are lower than your goal listed above (on the left). Weight loss vs. 18 mo Lifestyle 0.9 (08/11/2019 1:05 PM Aureliano Hammer MD max (lbs) >= 10 EST) Note: This is an individualized lifestyle goal for Rosetta Kumar: Your body mass index (BMI) is more than 30. You should lose weight. A reasonable starting goal is to lose 10 pounds. Displayed above is how many pounds you have lost thus far towards your 10 pound weight loss goal. Take all prescribed medications as directed Self-management Aureliano Hammer MD Note: This is an individualized self-management goal for Rosetta Kumar: Please take all prescribed medications as directed. 1. Do not skip doses. If you cannot afford your medications, talk with your doctor. 2. Use a pill reminder system such as a pill box if needed. Your pharmacist can help you with this. 3. Contact your Pharmacy 5 days before your medication runs out. If you cannot take your medications for any reasons, talk with your doctor. 4. Please bring all of your medication bottles and inhalers (or a list of all your medications/inhalers) with you to every visit. Potential barriers to meeting all of your care plan goals will continue to be addressed on an ongoing basis. documented as of this encounter Results BASIC METABOLIC PANEL (08/20/2019 9:19 AM EST) Glucose 79 70 - 99 mg/dl [facility] BUN 21 (H) 7 - 17 mg/dl [facility] Creatinine 1.0 0.7 - 1.2 mg/dl [facility] Sodium 137 134 - 145 mmol/L [facility] Potassium 4.5 3.5 - 5.1 mmol/L [facility] Chloride 104 98 - 107 mmol/L [facility] CO2 29 22 - 30 mmol/L [facility] Calcium 9.2 8.3 - 10.1 mg/dl [facility] eGFR 53 See Interpretation [facility] Comment: Below ml/min/1.73ml GROUP Estimated GFR Interpretation: LABORATORY Above 60ml/min/1.73m2 = Normal Renal Function 30-59 ml/min/1.73m2 = Stage 3 Chronic Kidney Disease 15-29 ml/min/1.73m2 = Stage 4 Chronic Kidney Disease Less than 15 ml/min/1.73m2 = Stage 5 Chronic Kidney Disease The GFR value is calculated using the Modification of Diet in Renal Disease ( MDRD) Study Equation which can be found at: https://www.kidney.org/content/pyml-hjuez-egidfmnc BUN/Creatinine 21 6 - 22 RATIO [facility] LABORATORY Anion Gap 4 3 - 11 mmol/L [facility] Specimen Blood - Blood specimen (specimen) Performing Organization Address City/State/Zipcode Phone Number [facility] [address] [place] [address] documented in this encounter Visit Diagnoses Diagnosis Pneumonia due to infectious organism, unspecified laterality, unspecified part of lung Essential hypertension Unspecified essential hypertension Occipital stroke (HCC) Unspecified cerebral artery occlusion with cerebral infarction Memory loss Multiple myeloma not having achieved remission (HCC) Multiple myeloma, without mention of having achieved remission Systemic lupus erythematosus, unspecified SLE type, unspecified organ involvement status (HCC) documented in this encounter Insurance Payer Benefit Plan / Subscriber ID Effective Dates Phone Address Type Group MEDICARE MEDICARE PART A xxxxxxxxxxx 2004-Present Medicare & B [facility] [employer] [facility] CARE xxxxxxxxxxx 2016-Present [facility] OPTIONS Guarantor Name Account Type Relation to Date of Phone Billing Patient Address Rosetta Kumar Personal/Family 1940 [phone] (Work) [place] [address] documented as of this encounter Advance Directives Type Date Recorded 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
--- OUTSIDE RECORDS SUMMARY | 2019-09-07 08:52 | XMS REPORT | Summary of Care ---
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 Encounter Details Date Type Department Care Team Description 08/10/2019 Office Visit Angelica Michael MD [address] [address] [phone] Cerebrovascular Rheumatology Kelsie Lehman MD [address] [place] [address] [phone] accident (CVA) due to [facility] thrombosis of [place], [place] precerebral artery [id number] (Primary Dx) [phone] Allergies Active Allergy Reactions Severity Noted Date Comments Penicillins Hives, Itching 06/21/2019 documented as of this encounter (statuses as of 08/10/2019) Medications Medication Sig Dispensed Refills Start Date End Date Status Acyclovir 800 MG Oral Take 800 mg by 0 Active Tablet (ZOVIRAX) mouth Two Times Daily pregabalin (LYRICA) 100 Take 100 mg by 0 Active MG capsule mouth Three times daily Vitamin B-12 1000 MCG Take 2,500 mcg by 0 Active Oral Tablet mouth daily (CYANOCOBALAMIN) Vitamin D3 25 MCG (1000 Take 2,000 Units 0 Active UT) Oral Tablet by mouth daily (CHOLECALCIFEROL) Umeclidinium [place] Inhale 1 Inhaler 0 Active 62.5 MCG/INH Inhalation into the lungs Aerosol Powder Breath daily Activated (INCRUSE ELLIPTA) amLODIPine Besylate 10 Take 1 tablet by 30 tablet 0 07/08/2019 Active MG Oral Tablet mouth daily (NORVASC) Atenolol 50 MG Oral Take 1 tablet by 30 tablet 0 07/08/2019 Active Tablet (TENORMIN) mouth daily Atorvastatin Calcium 40 Take 1 tablet by 30 tablet 0 07/08/2019 Active MG Oral Tablet mouth daily (LIPITOR) documented as of this encounter (statuses as of 08/10/2019) Active Problems Problem Noted Date Impaired mobility and activities of daily living 06/26/2019 Essential hypertension 06/26/2019 Lupus 06/26/2019 Multiple myeloma in remission 06/26/2019 CVA (cerebral vascular accident) 06/26/2019 Homonymous hemianopia, 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 documented as of this encounter Last Filed Vital Signs Vital Sign Reading Time Taken Comments Blood Pressure 128/69 08/10/2019 1:32 PM EST Pulse 63 08/10/2019 1:32 PM EST Temperature 37.1 08/10/2019 1:32 PM EST C (98.7 F) Respiratory Rate 15 08/10/2019 1:32 PM EST Oxygen Saturation 95% 08/10/2019 1:32 PM EST Inhaled Oxygen Concentration - - Weight 89.8 kg (198 lb) 08/10/2019 1:32 PM EST Height 152.4 cm (5') 08/10/2019 1:32 PM EST Body Mass Index 38.67 08/10/2019 1:32 PM EST documented in this encounter Progress Notes Kelsie Lehman MD - 08/10/2019 1:45 PM EST Subjective: Patient ID: Rosetta Kumar is a 78 y.o. female. Chief Complaint: ischemic stroke HPI 78 year old female with a history of SLE referred for an ischemic stroke. Concern for APLA. CTA demonstrated left [employer] territory infarct, suggestive of acute thrombus. She has a history of multiple myeloma, thrombocytopenia while she was in the hospital thought to be secondary to MM treatment. MIKE was normal. She did have a lot of blood pressure problems. She was diagnosed with SLE several years ago in [place]. She was on plaquenil for SLE. It was stoppeddue to treatment of multiple myeloma since she was getting chemo and radiation. She is still on treatment, unknown what it is. (on maintenance therapy) She is unsure what symptoms she was having that SLE was diagnosed. Unsure Plaquenil helped, her memory is poor secondary to stroke. She has right hip pain secondary to multiple myeloma. She did have joint pains when SLE diagnosis was made. Denies any photosensitivity, oral or nasal ulcers, rashes, alopecia, dry eyes/ dry mouth. No history of DVT/PE. +recent stroke. No raynaud's. No history of gout or skin psoriasis. Past Medical History: Diagnosis Date Arthritis Cancer multiple myeloma Hypertension Stroke present admission Past Surgical History: Procedure Laterality Date CARDIAC SURGERY EYE SURGERY HYSTERECTOMY Family History Problem Relation Age of Onset Heart disease Mother Heart disease Father No Known Problems Sister Social History Tobacco Use Smoking status: Former Smoker Packs/day: 0.00 Last attempt to quit: 06/21/1999 Years since quittin.1 Smokeless tobacco: Never Used Substance Use Topics Alcohol use: Not Currently Drug use: Not Currently Allergies Allergen Reactions Penicillins Hives and Itching Current Outpatient Medications Medication Sig Dispense Refill Acyclovir 800 MG Oral Tablet (ZOVIRAX) Take 800 mg by mouth Two Times Daily amLODIPine Besylate 10 MG Oral Tablet (NORVASC) Take 1 tablet by mouth daily 30 tablet 0 Atenolol 50 MG Oral Tablet (TENORMIN) Take 1 tablet by mouth daily 30 tablet 0 Atorvastatin Calcium 40 MG Oral Tablet (LIPITOR) Take 1 tablet by mouth daily 30 tablet 0 pregabalin (LYRICA) 100 MG capsule Take 100 mg by mouth Three times daily Umeclidinium [place] 62.5 MCG/INH Inhalation Aerosol Powder Breath Activated (INCRUSE ELLIPTA) Inhale 1 Inhaler into the lungs daily Vitamin B-12 1000 MCG Oral Tablet (CYANOCOBALAMIN) Take 2,500 mcg by mouth daily Vitamin D3 25 MCG (1000 UT) Oral Tablet (CHOLECALCIFEROL) Take 2,000 Units by mouth daily No current facility-administered medications for this visit. Review of Systems Constitutional: Negative for chills and malaise/fatigue, fever HENT: Negative for sore throat. Eyes: Negative for blurred vision, double vision, pain and discharge. Respiratory: Negative for cough, hemoptysis, sputum production and shortness of breath. Cardiovascular: Negative for lower extremity swelling, chest pain and palpitations. Gastrointestinal: Negative for heartburn, nausea, vomiting, abdominal pain constipation, and diarrhea. Genitourinary: Negative for dysuria, hematuria and flank pain. Musculoskeletal: Negative for joint pain, neck pain, myalgias and falls. Skin: Negative for rash. Neurological: Negative for dizziness, sensory change, speech change, focal weakness, loss of consciousness, tingling/numbness and weakness. Endo/Heme/Allergies: Does not bruise/bleed easily. Objective: Vitals: 08/10/19 1332 BP: 128/69 Pulse: 63 Resp: 15 Temp: 37.1 C (98.7 F) SpO2: 95% Physical Exam Constitutional: Alert and oriented x3, no acute distress HEENT: Normocephalic, atraumatic, PERRLA Cardiovascular: Regular rate and rhythm, S1 normal and S2 normal. Lungs: Clear to auscultation b/l. No wheezing Abdomen: Soft, non-tender Musculoskeletal: No joint tenderness or deformities Neurological: alert and oriented to person, place, and time. Extremities: no edema Skin: Skin is warm and dry. Assessment: 78 year old female with a history of SLE referred for an ischemic stroke. Concern for APLA. CTA demonstrated left [employer] territory infarct, suggestive of acute thrombus. She has a history of multiple myeloma, thrombocytopenia while she was in the hospital thought to be secondary to MM treatment. MIKE was normal. She did have a lot of blood pressure problems. Plan: 1. History of ischemic stroke and history of SLE, referred for concern of APLA -Recent ischemic stroke, possibly due to uncontrolled HTN. Will check APLA panel , if positive will speak to neurology -She has a history of SLE and was on plaquenil, she is unsure what symptoms she had that this diagnosis was made and if plaquenil worked. Currently no symptoms of SLE. 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 - Fall precautions emphasized. - Diet: low carb/low fat, more greens/vegetables, adequate hydration - Encouraged to maintain good sleep hygiene - Continue other medications as prescribed by PCP and other specialist. - DVT precautions especially long distance travel -RTC: 3 months documented in this encounter Plan of Treatment Date Type Specialty Care Team Description 09/30/2019 Office Visit Neurology Inocencia Beebe NP [address] [place] [address] [phone] 10/08/2019 Office Visit Physical Medicine and Alice Chau, Rehabilitation [facility] [address] [address] [phone] 11/09/2019 Office Visit Rheumatology Kelsie Lehman MD [address] [place] [address] [phone] Name Type Priority Associated Diagnoses Order Schedule ANUM Lab Routine Cerebrovascular accident 1 Occurrences (CVA) due to thrombosis starting 08/10/2019 of precerebral artery until 02/10/2020 ANUM Specificity Lab Routine Cerebrovascular accident 1 Occurrences (CVA) due to thrombosis starting 08/10/2019 of precerebral artery until 02/10/2020 CBC and Differential Lab Routine Cerebrovascular accident 1 Occurrences (CVA) due to thrombosis starting 08/10/2019 of precerebral artery until 02/07/2020 Sedimentation rate, Lab Routine Cerebrovascular accident 1 Occurrences automated (CVA) due to thrombosis starting 08/10/2019 of precerebral artery until 02/10/2020 Rheumatoid factor Lab Routine Cerebrovascular accident 1 Occurrences (CVA) due to thrombosis starting 08/10/2019 of precerebral artery until 02/10/2020 C-reactive protein Lab Routine Cerebrovascular accident 1 Occurrences (CVA) due to thrombosis starting 08/10/2019 of precerebral artery until 02/08/2020 DRVVT Lab Routine Cerebrovascular accident 1 Occurrences (CVA) due to thrombosis starting 08/10/2019 of precerebral artery until 02/10/2020 Platelet Neutralization Lab Routine Cerebrovascular accident 1 Occurrences (CVA) due to thrombosis starting 08/10/2019 of precerebral artery until 02/10/2020 Hexagonal Phase Phospho Lab Routine Cerebrovascular accident 1 Occurrences Neut (CVA) due to thrombosis starting 08/10/2019 of precerebral artery until 02/10/2020 B2 glycoprotein IgG/IgM Lab Routine Cerebrovascular accident 1 Occurrences (CVA) due to thrombosis starting 08/10/2019 of precerebral artery until 02/10/2020 Cardiolipin antibody, IgA Lab Routine Cerebrovascular accident 1 Occurrences (CVA) due to thrombosis starting 08/10/2019 of precerebral artery until 02/10/2020 Cardiolipin antibody, IgG Lab Routine Cerebrovascular accident 1 Occurrences (CVA) due to thrombosis starting 08/10/2019 of precerebral artery until 02/10/2020 Cardiolipin antibody, IgM Lab Routine Cerebrovascular accident 1 Occurrences (CVA) due to thrombosis starting 08/10/2019 of precerebral artery until 02/10/2020 Comprehensive Metabolic Lab Routine Cerebrovascular accident 1 Occurrences Panel (CVA) due to thrombosis starting 08/10/2019 of precerebral artery until 02/10/2020 Health Maintenance Due Date Last Done Comments MMR Vaccines (1 of 1 - Standard 11/16/1941 series) Varicella Vaccines (1 of 2 - 11/16/1941 2-dose childhood series) Zoster Vaccines (1 of 2) 11/16/1989 Osteoporosis Screening 2 yr 11/16/2004 Pneumococcal Vaccine: 65+ Years (1 11/16/2004 of 2 - PCV13) DTaP,Tdap,and Td Vaccines (2 - 08/26/2005 07/29/2005 Tdap) Influenza Vaccine 04/28/2019 HIB Vaccines Aged Out No longer eligible based on patient's age to complete this topic Hepatitis A Vaccines Aged Out No longer eligible based on patient's age to complete this topic Hepatitis B Vaccines Aged Out No longer eligible based on patient's age to complete this topic IPV Vaccines Aged Out No longer eligible based on patient's age to complete this topic Pneumococcal Vaccine: Pediatrics Aged Out No longer eligible based on (0 to 5 Years) and At-Risk patient's age to complete Patients (6 to 64 Years) this topic documented as of this encounter Implants Implanted Type Area Manager Publishing Device Shelf Model / Identifier Expiration Serial / Date Lot Recorder Loop Reveal Linqlinqsys - [id number] Loop Left: [employer] 05/25/2020 LINQSYS / Implanted: Qty: 1 on 06/24/2019 by Diane Hernandez MD at OR [facility] Recorder Chest [id number] / Wall documented as of this encounter Results Not on filedocumented in this encounter Visit Diagnoses Diagnosis Cerebrovascular accident (CVA) due to thrombosis of precerebral artery - Primary documented in this encounter
--- OUTSIDE RECORDS SUMMARY | 2019-09-07 08:52 | XMS REPORT | Summary of Care ---
:1940 Author Organization [facility] Address [address] [place] [address] Care Team Providers Name Role Phone Aureliano Orozco MD Primary Care Provider Encounter Details Date Type Department Care Team Description 08/18/2019 Hospital Encounter [facility] Clinical Pathology at [place] [address] [place] [address] Allergies Active Allergy Reactions Severity Noted Date Comments Penicillins Hives, Itching 06/21/2019 documented as of this encounter (statuses as of 08/21/2019) Medications Medication Sig Dispensed Refills Start Date [...] Oral Tablet by mouth daily (CHOLECALCIFEROL) Umeclidinium [place] Inhale 1 Inhaler 0 Active 62.5 MCG/INH [...] as of this encounter (statuses as of 08/21/2019) Active Problems Problem Noted Date Impaired mobility and activities of daily living 06/26/2019 Essential hypertension 06/26/2019 Lupus 06/26/2019 Multiple myeloma in remission 06/26/2019 CVA (cerebral vascular accident) 06/26/2019 Homonymous hemianopia, 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 documented as of this encounter Last Filed Vital Signs Not on filedocumented in this encounter Plan of Treatment Date Type Specialty Care Team Description 09/30/2019 Office Visit Neurology Inocencia Beebe NP [address] [place] [address] [phone] 10/08/2019 Office Visit Physical Medicine and Alice Chau, Rehabilitation [address] [address] [phone] 11/09/2019 Office Visit Rheumatology Kelsie Lehman MD [address] [address] [phone] Health Maintenance Due Date Last Done Comments [...] of this encounter Implants Implanted Type Area Certified Personal Chef Device Shelf Model / Identifier Expiration Serial / Date Lot Recorder Loop Reveal Linqlinqsys - [id number] Loop Left: [employer] 05/25/2020 LINQSYS / Implanted: Qty: 1 on 06/24/2019 by Diane Hernandez MD at OR [facility] Recorder Chest [id number] / Wall documented as of this encounter Results Not on filedocumented in this encounter
[2019-09-07 09:55] LABS: ABS Eosinophils 0.1 10^3/ul (0-0.6); ABS Lymphocytes 0.9 10^3/ul (1.0-4.8); ABS Monocytes 0.5 10^3/ul (0-0.8); ABS Neutrophils 3.9 10^3/ul (1.5-7.7); Hematocrit 38 % (35-47); Hemoglobin 12.5 g/dL (12.0-16.0); Lymphocyte % 17.4 %; Mean Corpuscular HGB Conc 33 g/dL (31-36); Mean Corpuscular Hemoglobin 30 pg (27-31); Mean Corpuscular Volume 91 fL (80-97); Mean Platelet Volume 8.6 fL (7.4-10.4); Platelet Count 123 10^3/uL (150-450); Red Blood Count 4.13 10^6 /uL (3.70-4.87); Red Cell Distribution Width 17 % (10-15); White Blood Count 5.4 10^3/uL (3.5-10.8)
[2019-09-07 10:00] LABS: INR 0.99 (0.82-1.09)
[2019-09-07 10:10] LABS: Albumin 3.8 g/dL (3.2-5.2); Albumin/Globulin Ratio 2.1 (1-3); BUN/Creatinine Ratio 21.4 (8-20); Calcium 8.9 mg/dL (8.6-10.3); EGFR African American 79.1 (>60); EGFR Non-African American 65.4 (>60); Globulin 1.8 g/dL (2-4); Potassium 3.7 mmol/L (3.5-5.0); Total Protein 5.6 g/dL (6.4-8.9); Troponin I 0.01 ng/mL (<0.03)
--- NOTE | 2019-09-07 10:25 | ED ---
HPI Chest Pain - HPI Summary HPI Summary: This pt is a 78 y/o female presenting to [facility] c/o intermittent episodes of chest pain. Patient's son reports pt had one episode of chest pain 2 days ago but it subsided spontaneously after a couple of hours. Son states pt had chest pain again this morning with associated symptom of nausea. Patient describes chest pain as a pressure pain "like someone sitting on it." Currently chest pain has subsided. Denies associated SOB, vomiting. Pt reports dizziness when standing up and moving around. Denies sore throat, cough, runny nose, diarrhea, constipation, dysuria. Per son patient has been very "sluggish" without energy. Additionally patient's son notes pt has not been sleeping well at night time and her blood pressure has been going up and down since 08/17/19. Denies hx of ID. Patient did have a chemical stress test in the last year and per family member it was ok. PMHx includes HTN, hyperlipidemia, UTI, stroke 2 months ago (neuro deficits of no short term memory, right leg weakness and decreased vision from right eye), multiple myeloma (followed up by Dr. Hernandez and on chemo). Patient attends physical therapy and speech therapy. - History of Current Complaint Chief Complaint: EDChestPainROMI Time Seen by Provider: 09/07/19 10:14 Hx Obtained From: Patient, Family/Gear Grinder - Son Onset/Duration: Started Days Ago, Still Present Timing: Intermittent Current Severity: None Pain Intensity: 0 Pain Scale Used: 0-10 Numeric Chest Pain Location: Diffuse Chest Pain Radiates: No Character: Pressure/Squeezing - pressure Aggravating Factor(s): Nothing Alleviating Factor(s): Nothing Associated Signs and Symptoms: Positive: Chest Pain, Dizziness, Nausea. Negative: Shortness of Breath, Fever, Chills, Cough, Vomiting - Additional Pertinent History Primary Care Physician: [id number] - Allergy/Home Medications Allergies/Adverse Reactions: Allergies Allergy/AdvReac Type Severity Reaction Status Date / Time oxycodone AdvReac Intermediate Abdominal Verified 09/07/19 08:49 Pain Home Medications: Home Medications Albuterol HFA INHALER* [Ventolin HFA Inhaler*] 2 puff INH Q4H PRN 09/07/19 [ History Confirmed 09/07/19] Atorvastatin* [Lipitor 20 MG*] 20 mg PO DAILY 09/07/19 [History Confirmed ] Benzonatate CAP* [Tessalon 100 MG CAP*] 100 mg PO BID PRN 09/07/19 [History Confirmed 09/07/19] Cholecalciferol CAP/TAB(NF) [Vitamin D3 CAP/TAB (NF)] 1,000 unit PO DAILY [History Confirmed 09/07/19] Clotrimazole/Betamethasone* [Lotrisone Cream*] 1 applic TOPICAL DAILY 09/07/19 [ History Confirmed 09/07/19] Cyanocobalamin TAB* [Vitamin B12 TAB*] 250 mcg PO DAILY 09/07/19 [History Confirmed 09/07/19] Fluticasone NASAL SPRAY 50MCG* [Flonase NASAL SPRAY 50MCG*] 2 spray BOTH NARES BID 09/07/19 [History Confirmed 09/07/19] Furosemide TAB* [Lasix TAB*] 20 mg PO DAILY 09/07/19 [History Confirmed 09/07/19 ] Ondansetron TAB* [Zofran 4 MG Tab*] 4 mg PO Q8H PRN 09/07/19 [History Confirmed 09/07/19] Pantoprazole TAB * [Protonix TAB*] 40 mg PO DAILY 09/07/19 [History Confirmed ] Potassium Chlor TAB* [Potassium Chlor TAB 20 MEQ*] 20 meq PO DAILY 09/07/19 [ History Confirmed 09/07/19] Spironolactone TAB* [Aldactone TAB 25 MG*] 12.5 mg PO DAILY 09/07/19 [History Confirmed 09/07/19] Sulfamethox/Trimethoprim DS* [Bactrim DS 800/160 TAB*] 1 tab PO .3X/WEEK [History Confirmed 09/07/19] Umeclidinium 62.5 MDI(NF) [Incruse ELLIPTA MDI (NF)] 62.5 mcg INH DAILY [History Confirmed 09/07/19] predniSONE [Prednisone 5 MG TAB] 5 mg PO DAILY 09/07/19 [History Confirmed 09/07] PMH/Surg Hx/FS Hx/Imm Hx Endocrine/Hematology History: Reports: Hx Systemic Lupus Erythematosus Denies: Hx Anticoagulant Therapy, Hx Diabetes, Hx Thyroid Disease Cardiovascular History: Reports: Hx Hypercholesterolemia, Hx Hypertension, Other Cardiovascular Problems/Disorders - Hx HTN Denies: Hx Pacemaker/ICD Respiratory History: Reports: Hx Pneumonia - x2 last 6 weeks Denies: Hx Asthma, Hx Chronic Obstructive Pulmonary Disease (COPD) GI History: Reports: Hx Ulcer, Other GI Disorders - Hx diverticulitis History: Denies: Hx Renal Disease Musculoskeletal History: Comment Only: Hx Rheumatoid Arthritis - TONY Sensory History: Reports: Hx Contacts or Glasses Denies: Hx Hearing Aid Opthamlomology History: Reports: Hx Contacts or Glasses Psychiatric History: Denies: Hx Panic Disorder - Cancer History Cancer Type, Location and Year: multiple meyloma Hx Chemotherapy: No Hx Radiation Therapy: No - Surgical History Surgery Procedure, Year, and Place: Hysterectomy , varicose vein surgery . CATARACTS - Immunization History Date of Tetanus Vaccine: unk Date of Influenza Vaccine: unk Infectious Disease History: No Infectious Disease History: Reports: Hx Shingles Denies: Hx Hepatitis, Hx Human Immunodeficiency Virus (HIV), Traveled Outside the [place] in Last 30 Days - Family History Known Family History: Positive: Hypertension Negative: Respiratory Disease, Seizure Disorder - Social History Alcohol Use: None Hx Substance Use: No Substance Use Type: Reports: None Hx Tobacco Use: Yes Smoking Status (MU): Former Smoker Type: Cigarettes Amount Used/How Often: 1 PPD Length of Time of Smoking/Using Tobacco: 50 Years Have You Smoked in the Last Year: No Review of Systems Negative: Fever Negative: Sore Throat, Nasal Discharge Positive: Chest Pain Negative: Shortness Of Breath, Cough Positive: Nausea. Negative: Vomiting, Diarrhea, Other - NEGATIVE: constipation Negative: dysuria Neurological/Mental Status: Other - POSITIVE: dizziness All Other Systems Reviewed And Are Negative: Yes Physical Exam - Summary Physical Exam Summary: VITAL SIGNS: Reviewed. GENERAL: Patient is a well-developed and nourished female who is lying comfortable in the stretcher. Patient is not in any acute respiratory distress. HEAD AND FACE: No signs of trauma. No ecchymosis, hematomas or skull depressions. No sinus tenderness. EYES: PERRLA, EOMI x 2, No injected conjunctiva, no nystagmus. EARS: Hearing grossly intact. Ear canals and tympanic membranes are within normal limits. MOUTH: Oropharynx within normal limits. NECK: Supple, trachea is midline, no adenopathy, no JVD, no carotid bruit, no c- spine tenderness, neck with full ROM. CHEST: Symmetric, no tenderness at palpation LUNGS: Clear to auscultation bilaterally. No wheezing or crackles. CVS: Regular rate and rhythm, S1 and S2 present, no murmurs or gallops appreciated. ABDOMEN: Soft, non-tender. No signs of distention. No rebound, no guarding, and no masses palpated. Bowel sounds are normal. EXTREMITIES: FROM in all major joints, no edema, no cyanosis or clubbing. NEURO: Alert and oriented x 3. No acute neurological deficits. Speech is normal and follows commands. Patient has deficit secondary to past stroke of right leg weakness and decreased vision on the right. SKIN: Dry and warm Triage Information Reviewed: Yes Vital Signs On Initial Exam: Initial Vitals Temp Pulse Resp BP Pulse Ox 98.1 F 62 18 160/59 93 09/07/19 08:40 09/07/19 08:40 09/07/19 08:40 09/07/19 08:40 09/07/19 08:40 Vital Signs Reviewed: Yes Procedures - Sedation Patient Received Moderate/Deep Sedation with Procedure: No Diagnostics - Vital Signs Vital Signs Temp Pulse Resp BP Pulse Ox 09/07/19 08:40 98.1 F 62 18 160/59 93 - Laboratory Lab Results: Lab Results 09/07/19 09/07/19 09/07/19 Range/Units 09:41 09:41 09:41 WBC 5.4 (3.5-10.8) 10^3/uL RBC 4.13 (3.70-4.87) 10^6 /uL Hgb 12.5 (12.0-16.0) g/dL Hct 38 (35-47) % MCV 91 (80-97) fL MCH 30 (27-31) pg MCHC 33 (31-36) g/dL RDW 17 H (10-15) % Plt Count 123 L (150-450) 10^3/uL MPV 8.6 (7.4-10.4) fL Neut % (Auto) 71.4 % Lymph % (Auto) 17.4 % [place] % (Auto) 9.5 % Eos % (Auto) 1.0 % Baso % (Auto) 0.7 % Absolute Neuts (auto) 3.9 (1.5-7.7) 10^3/ul Absolute Lymphs (auto) 0.9 L (1.0-4.8) 10^3/ul Absolute Monos (auto) 0.5 (0-0.8) 10^3/ul Absolute Eos (auto) 0.1 (0-0.6) 10^3/ul Absolute Basos (auto) 0.0 (0-0.2) 10^3/ul Absolute Nucleated RBC 0.0 10^3/ul Nucleated RBC % 0.0 INR (Anticoag Therapy) 0.99 (0.82-1.09) Sodium 139 (135-145) mmol/L Potassium 3.7 (3.5-5.0) mmol/L Chloride 106 (101-111) mmol/L Carbon Dioxide 27 (22-32) mmol/L Anion Gap 6 (2-11) mmol/L BUN 18 (6-24) mg/dL Creatinine 0.84 (0.51-0.95) mg/dL Est GFR ( Amer) 79.1 (>60) Est GFR (Non-Af Amer) 65.4 (>60) BUN/Creatinine Ratio 21.4 H (8-20) Glucose 121 H (70-100) mg/dL Calcium 8.9 (8.6-10.3) mg/dL Total Bilirubin 1.00 (0.2-1.0) mg/dL AST 17 (13-39) U/L ALT 18 (7-52) U/L Alkaline Phosphatase 67 (34-104) U/L Troponin I 0.01 (<0.03) ng/mL Total Protein 5.6 L (6.4-8.9) g/dL Albumin 3.8 (3.2-5.2) g/dL Globulin 1.8 L (2-4) g/dL Albumin/Globulin Ratio 2.1 (1-3) Result Diagrams: 09/07/19 09:41 09/07/19 09:41 Lab Statement: Any lab studies that have been ordered have been reviewed, and results considered in the medical decision making process. - Radiology Chest XR Radiology Interpretation Completed By: Radiologist Summary of Radiographic Findings: IMPRESSION: No radiographic evidence of acute cardiopulmonary disease. Dr. Stack has reviewed this report. - EKG 08:43 Cardiac Rate: Bradycardia - at 59 bpm EKG Rhythm: Sinus Bradycardia Summary of EKG Findings: EKG at 0843 shows sinus bradycardia at a rate of [address] elevations. ST depressions in V5 and V6, Q wave in III, T-wave inversion in aVL. This EKG was interpreted and reviewed by ED physician. Chest Pain Course/Dx - Course Assessment/Plan: This pt is a 78 y/o female presenting to [facility] c/o intermittent episodes of chest pain. Patient's son reports pt had one episode of chest pain 2 days ago but it subsided spontaneously after a couple of hours. Son states pt had chest pain again this morning with associated symptom of nausea. Patient describes chest pain as a pressure pain "like someone sitting on it." Currently chest pain has subsided. Denies associated SOB, vomiting. Pt reports dizziness when standing up and moving around. Denies sore throat, cough , runny nose, diarrhea, constipation, dysuria. Per son, patient has been very "sluggish" without energy. Additionally patient's son notes pt has not been sleeping well at night time and her blood pressure has been going up and down since 08/17/19. Denies hx of ID. Patient did have a chemical stress test in the last year and per family member it was ok. PMHx includes HTN, hyperlipidemia, UTI, stroke 2 months ago (neuro deficits of no short term memory , right leg weakness and decreased vision from right eye), multiple myeloma ( followed up by Dr. Hernandez and on chemo). Patient attends physical therapy and speech therapy. In the ED course the patient was placed in a monitor technician, IV access was obtained, IV fluids started, She was given ASA for the CP. Blood test w/o a significant abnormality except for platelets of 123, glucose 121, total protein is 5.6. Troponin 0.01. EKG: concerning bradycardia at [address]ations. ST depressions in V5 and V6, Q wave in III, T-wave inversion in aVL. Heart to score is equal to 5. CXR: No Radiographic evidence for acute cardiopulmonary disease. I discussed my physical exam and test results with Dr. Ponce from the hospitalist services and he agrees to admit the patient to his services. The patient is hemodynamically stable, alert and oriented x 3. - Diagnoses Provider Diagnoses: Chest pain - Provider Notifications Discussed Care Of Patient With: Min Ponce - hospitalist Time Discussed With Above Provider: 12:30 Instructed by Provider To: Admit As Inpatient Discharge ED - Sign-Out/Discharge Documenting (check all that apply): Patient Depart[place] [facility] [place] Plan Condition: Stable Disposition: ADMITTED TO [facility] - Billing Disposition and Condition Condition: STABLE Disposition: Admitted to [facility] - Attestation Statements Document Initiated by Scribe: Yes Documenting Scribe: Domonique Ramirez Provider For Whom Scribe is Documenting (Include Credential): Ramiro Stack MD Scribe Attestation: Domonique Briseno, scribed for Ramiro Stack MD on 09/09/19 at 0216. Scribe Documentation Reviewed: Yes Provider Attestation: The documentation as recorded by the Domonique nava accurately reflects the service I personally performed and the decisions made by , Ramiro Stack MD Status of Scribe Document: Viewed
[2019-09-07 10:40] LABS: Activated Partial Thrombo Time 31.9 seconds (26.0-38.0)
[2019-09-07] MEDS ORDERED: Aspirin 81 mg CHEW TAB* 81 MG TAB.CHEW PO ONE (10:40)
[2019-09-07 10:56] LABS: C Reactive Protein 1.67 mg/L (<8.01)
[2019-09-07 12:39] LABS: Urine Appearance Clear; Urine Bilirubin Negative (Negative); Urine Blood Negative (Negative); Urine Color Yellow; Urine Glucose Negative (Negative); Urine Ketones Negative (Negative); Urine Nitrite Negative (Negative); Urine Protein Negative (Negative); Urine Urobilinogen Negative (Negative)
[2019-09-07] MEDS ORDERED: Albuterol HFA INHALER* 8 gm MDI INH PRN (13:08)
[2019-09-07] MEDS ORDERED: clonazePAM TAB(*) 0.5 MG PO PRN (13:08)
--- NOTE | 2019-09-07 13:14 | ADMNOTE ---
Subjective Date of Service: 09/07/19 Interval History: ' ADMISSION HISTORY AND PHYSICAL EXAM: Allergies Allergy/AdvReac Type Severity Reaction Status Date / Time oxycodone AdvReac Intermediate Abdominal Verified 09/07/19 08:49 Pain Home Medications Medication Instructions Recorded Confirmed Type Atenolol TAB* [Tenormin TAB* 25 MG] 50 mg PO DAILY 09/07/12 09/07/19 History Losartan Potassium 100 mg PO DAILY 08/15/18 09/07/19 History amLODIPine TAB* [Norvasc 5 mg TAB*] 5 mg PO DAILY 08/15/18 09/07/19 History Citalopram TAB* [CeleXA TAB*] 40 mg PO DAILY 09/30/18 09/07/19 History Acyclovir* [Zovirax 400 MG TAB*] 800 mg PO BID 12/01/18 09/07/19 History Aspirin 81 mg CHEW TAB* [Aspirin 81 mg PO DAILY 06/02/19 09/07/19 History Low Dose TAB*] Albuterol HFA INHALER* [Ventolin 2 puff INH Q4H PRN 09/07/19 09/07/19 History HFA Inhaler*] Atorvastatin* [Lipitor*] 20 mg PO DAILY 09/07/19 09/07/19 History Benzonatate CAP* [Tessalon 100 MG 100 mg PO BID PRN 09/07/19 09/07/19 History CAP*] Cholecalciferol CAP/TAB(NF) 1,000 unit PO DAILY 09/07/19 09/07/19 History [Vitamin D3 CAP/TAB (NF)] Clotrimazole/Betamethasone* 1 applic TOPICAL DAILY 09/07/19 09/07/19 History [Lotrisone Cream*] Cyanocobalamin TAB* [Vitamin B12 250 mcg PO DAILY 09/07/19 09/07/19 History TAB*] Fluticasone NASAL SPRAY 50MCG* 2 spray BOTH NARES BID 09/07/19 09/07/19 History [Flonase NASAL SPRAY 50MCG*] Furosemide TAB* [Lasix TAB*] 20 mg PO DAILY 09/07/19 09/07/19 History Ondansetron TAB* [Zofran 4 MG Tab*] 4 mg PO Q8H PRN 09/07/19 09/07/19 History Pantoprazole TAB * [Protonix TAB*] 40 mg PO DAILY 09/07/19 09/07/19 History Potassium Chlor TAB* [Klor Con ER 20 meq PO DAILY 09/07/19 09/07/19 History TAB*] Pregabalin 100 mg CAP (*) [Lyrica 100 mg PO TID 09/07/19 09/07/19 History 100 mg CAP (*)] Spironolactone TAB* [Aldactone 12.5 mg PO DAILY 09/07/19 09/07/19 History TAB*] Sulfamethox/Trimethoprim DS* 1 tab PO .3X/WEEK 09/07/19 09/07/19 History [Bactrim DS 800/160 TAB*] Umeclidinium 62.5 MDI(NF) [Incruse 62.5 mcg INH DAILY 09/07/19 09/07/19 History ELLIPTA MDI (NF)] clonazePAM TAB(*) [KlonoPIN TAB(*)] 0.5 mg PO TID PRN 09/07/19 09/07/19 History predniSONE [Prednisone 5 MG TAB] 5 mg PO DAILY 09/07/19 09/07/19 History HPI: History obtained from and son as patient has poor short-term memory She was in her usual state of health until about 10 AM today when she c/o mid- sternal chest pain. This lasted about 20 minutes. No associated sx's or raiation. She never had this before. The patient could not recall anything about her chest pain when I saw her. Family History: Findings - Father had DE age 8a. Social History: Findings - Lives with her who is her SDM. Quit smoking many yrs ago. No alcohol abuse. Past Medical History: Findings - Multiple myeloma, on chemo per Dr. Hernandez, SLE, HTN. 4 children. [facility] Review of Systems - Measurements Intake and Output: Intake and Output Last 24 Hours 09/05/19 09/06/19 09/07/19 09/08/19 06:59 06:59 06:59 06:59 Weight 200 lb - Review of Systems Constitutional Symptoms: Negative: Weight Gain, Weight Loss, Weakness, Fatigue, Fever, Night Sweats, Unexplained Falls, Other Dermatology: Positive: Normal HEENT: Positive: Normal Eyes: Positive: Normal Pulmonary: Positive: Normal Cardiology: Positive: Chest Pain Gastroenterology: Positive: Normal Genital - Urinary: Positive: Normal Musculoskeletal: Positive: Joint Pain Endocrinology: Positive: Normal Hematologic/Lymphatic: Positive: Other - multiple myeloma on chemo Neurology: Positive: Change in Memory, Hx of Stroke\TIA Psychiatry: Positive: Normal Allergic/Immunologic: Negative: Hx Anaphylaxis, Hx Angioedema, Hx Environmental, Hx Seasonal, Asthma, Hx HIV, Immunocompromise, Swollen Glands LymphNodes, Other Objective Vital Signs - 8 hr 09/07/19 09/07/19 09/07/19 08:40 10:23 10:26 Temperature 98.1 F Pulse Rate 62 57 59 Respiratory 18 15 Rate Blood Pressure 160/59 156/62 (mmHg) O2 Sat by Pulse 93 96 97 Oximetry 09/07/19 09/07/19 09/07/19 10:56 11:01 11:25 Temperature Pulse Rate 57 55 54 Respiratory 22 20 29 Rate Blood Pressure 129/65 136/62 (mmHg) O2 Sat by Pulse 96 95 92 Oximetry 09/07/19 09/07/19 09/07/19 11:56 12:01 13:01 Temperature Pulse Rate 56 57 61 Respiratory 14 23 Rate Blood Pressure 136/69 (mmHg) O2 Sat by Pulse 93 93 96 Oximetry Oxygen Devices in Use Now: None Appearance: Alert, partly up on ED stretcher. In good spirits. Looks comfortable. Eyes: No Scleral Icterus Ears/Nose/Mouth/Throat: Clear Oropharnyx, Mucous Membranes Moist Neck: NL Appearance and Movements; NL JVP, No Thyroid Enlargement, Masses Respiratory: Symmetrical Chest Expansion and Respiratory Effort, Clear to Auscultation, Clear to Percussion Cardiovascular: NL Sounds; No Murmurs; No JVD, RRR, No Edema, - Abdominal: NL Sounds; No Tenderness; No Distention, No Hepatosplenomegaly, - Extremities: No Edema, No Clubbing, Cyanosis, - Skin: No Rash or Ulcers, No Nodules or Sclerosis, - Neurological: NL Sensation - Cooperative. Can state her month and year but not her age. Poor short term memory. No tremor. Result Diagrams: 09/07/19 09:41 09/07/19 09:41 Additional Lab and Data: Lab Results 09/07/19 09/07/19 09/07/19 Range/Units 09:41 09:41 09:41 WBC 5.4 (3.5-10.8) 10^3/uL RBC 4.13 (3.70-4.87) 10^6 /uL Hgb 12.5 (12.0-16.0) g/dL Hct 38 (35-47) % MCV 91 (80-97) fL MCH 30 (27-31) pg MCHC 33 (31-36) g/dL RDW 17 H (10-15) % Plt Count 123 L (150-450) 10^3/uL MPV 8.6 (7.4-10.4) fL Neut % (Auto) 71.4 % Lymph % (Auto) 17.4 % [place] % (Auto) 9.5 % Eos % (Auto) 1.0 % Baso % (Auto) 0.7 % Absolute Neuts (auto) 3.9 (1.5-7.7) 10^3/ul Absolute Lymphs (auto) 0.9 L (1.0-4.8) 10^3/ul Absolute Monos (auto) 0.5 (0-0.8) 10^3/ul Absolute Eos (auto) 0.1 (0-0.6) 10^3/ul Absolute Basos (auto) 0.0 (0-0.2) 10^3/ul Absolute Nucleated RBC 0.0 10^3/ul Nucleated RBC % 0.0 INR (Anticoag Therapy) 0.99 (0.82-1.09) Sodium 139 (135-145) mmol/L Potassium 3.7 (3.5-5.0) mmol/L Chloride 106 (101-111) mmol/L Carbon Dioxide 27 (22-32) mmol/L Anion Gap 6 (2-11) mmol/L BUN 18 (6-24) mg/dL Creatinine 0.84 (0.51-0.95) mg/dL Est GFR ( Amer) 79.1 (>60) Est GFR (Non-Af Amer) 65.4 (>60) BUN/Creatinine Ratio 21.4 H (8-20) Glucose 121 H (70-100) mg/dL Calcium 8.9 (8.6-10.3) mg/dL Total Bilirubin 1.00 (0.2-1.0) mg/dL AST 17 (13-39) U/L ALT 18 (7-52) U/L Alkaline Phosphatase 67 (34-104) U/L Troponin I 0.01 (<0.03) ng/mL Total Protein 5.6 L (6.4-8.9) g/dL Albumin 3.8 (3.2-5.2) g/dL Globulin 1.8 L (2-4) g/dL Albumin/Globulin Ratio 2.1 (1-3) Assess/Plan/Problems-Billing Assessment: - Patient Problems (1) Chest pressure Current Visit: No Status: Acute Code(s): R07.89 - OTHER CHEST PAIN SNOMED Code(s): 973244772 Comment: Second troponin wnl. Chemical stress test 09/08. Her stated he would want any procedure that would help her. (2) Multiple myeloma Current Visit: No Status: Acute Code(s): C90.00 - MULTIPLE MYELOMA NOT HAVING ACHIEVED REMISSION SNOMED Code(s): 475541640 Comment: Scheduled for chemo per Dr. Hernandez. (3) History of CVA (cerebrovascular accident) Current Visit: Yes Status: Acute Code(s): Z86.73 - PRSNL HX OF TIA (TIA), AND CEREB INFRC W/O RESID DEFICITS SNOMED Code(s): 206464907 (4) Smoldering multiple myeloma Current Visit: No Status: Acute Code(s): C90.00 - MULTIPLE MYELOMA NOT HAVING ACHIEVED REMISSION SNOMED Code(s): 373477111 Comment: Records requested from [facility] Caitlin. (5) HTN (hypertension) Current Visit: Yes Status: Acute Code(s): I10 - ESSENTIAL (PRIMARY) HYPERTENSION SNOMED Code(s): 31994779 Comment: Continue losartan, atenolol, spironolactone.
[2019-09-07] MEDS ORDERED: Enoxaparin(*) 40 MG/0.4 ML SYR SUBCUT SCH (14:00)
[2019-09-07] MEDS: Pregabalin 50 mg CAP (*) PO SCH ×2 (14:48→21:13)
--- NOTE | 2019-09-07 19:18 | PN ---
Progress Note - Progress Note Date of Service: 09/07/19 SOAP: Subjective: []Fatigued over weekend and 2 days ago had and episode of chest pain. Over that night had high blood pressure SBP > 180 and gave an extera blood pressure medication. yesterday very fatigued and not responding normally. Grandchildren were over and she was not responding to them. Blood pressure in am yesterday was 120-140 through day and goes up to 180s at night. Bottom number stays under 90. feels when on the low side she feels lethargic, better at night when blood pressure higher. This am very un-responsive and came to ER. No fevers or chills. No URI symptoms and no urinary symptoms. Has had cold hands. Takes Losartin and Norvasc every am. Acyclovir (Zovirax Tab*) 800 mg PO BID GIANCARLO Albuterol (Ventolin Hfa Inhaler*) 2 puff INH Q4H PRN PRN Reason: SOB/WHEEZING Amlodipine Besylate (Norvasc Tab*) 5 mg PO DAILY [facility] Aspirin (Aspirin 81 Mg Chew Tab*) 81 mg PO DAILY GIANCARLO Atenolol (Tenormin Tab*) 50 mg PO DAILY GIANCARLO Atorvastatin Calcium (Lipitor*) 20 mg PO DAILY [facility] Betamethasone/Clotrimazole (Lotrisone Cream*) 1 applic TOPICAL DAILY [facility] Cholecalciferol (Vitamin D Tab*) 1,000 units PO DAILY [facility] Citalopram Hydrobromide (Celexa Tab*) 20 mg PO DAILY [facility] Clonazepam (Klonopin Tab(*)) 0.25 mg PO TID PRN PRN Reason: ANXIETY Cyanocobalamin (Vitamin B12 Tab*) 250 mcg PO DAILY [facility] Enoxaparin Sodium (Lovenox(*)) 40 mg SUBCUT Q24H GIANCARLO Last Admin: 09/07/19 14:48 Dose: 40 mg Fluticasone Propionate (Flonase Nasal [place] 50mcg*) 2 spray BOTH NARES BID GIANCARLO Furosemide (Lasix Tab*) 20 mg PO DAILY GIANCARLO Losartan Potassium (Cozaar Tab*) 100 mg PO DAILY GIANCARLO Pantoprazole Sodium (Protonix Tab*) 40 mg PO DAILY [facility] Potassium Chloride (Klor Con Er Tab*) 20 meq PO DAILY GIANCARLO Prednisone (Deltasone 5 Mg Tab) 5 mg PO DAILY GIANCARLO Pregabalin (Lyrica 50 Mg Cap (*)) 50 mg PO TID [facility] Last Admin: 09/07/19 14:48 Dose: 50 mg Spironolactone (Aldactone Tab*) 12.5 mg PO DAILY [facility] Tiotropium [place] (Spiriva Respimat 2.5 Mcg) 2 puff INH DAILY [facility] Trimethoprim/Sulfamethoxazole (Bactrim Ds 800/160 Tab*) 1 tab PO MoWeFr [facility] Objective: [] Vital Signs Temp Pulse Resp BP Pulse Ox 98.1 F 61 20 134/66 96 09/07/19 14:18 09/07/19 14:18 09/07/19 14:48 09/07/19 14:18 09/07/19 14:18 HEENT: pale, no oral lesions CTA RRR S1S2 +BS NT ND, obese Ext w/o edema. Trop neg x 3 Assessment: []78 year old with multiple myeloma, has had several lines of therapy, no ASCT. Currently in remission on maintenance daratumumab. Presentation with intermittent MS change, chest pain x 1 and variable HTN with SBP to 180s. She had CVA last month and blood pressure management has been difficult. Etiology of symptoms is unclear, may be post CVA MS changes that vary with [employer] perfusion and blood pressure, evaluation for CAD is also reasonable. On exam tonight she is near baseline metal status. Plan: []1. Agree with plan for EST 2. Discussed with , Vinnie, taking Norvasc at night and Cozaar in am. 3. Will follow MS and blood pressure in hospital. 4. Will follow in hospital and can see her in clinic on if she goes home next day or two. 5. Myeloma controlled, I dont think is contributing to symptoms. Daratumumab does not have thrombotic risk that I know of.
[2019-09-07] MEDS ORDERED: Sulfamethox/Trimethoprim DS 800/160* TAB PO SCH (21:00)
[2019-09-07] MEDS: Acyclovir* 400 MG TAB PO SCH (21:13)
[2019-09-07] MEDS: Fluticasone NASAL SPRAY 50MCG* 16 gm SPRAY BTL BOTH NARES SCH (21:20)
[2019-09-08] MEDS: Acyclovir* 400 MG TAB PO SCH (08:01)
[2019-09-08] MEDS: Pregabalin 50 mg CAP (*) PO SCH (08:01)
[2019-09-08] MEDS: Fluticasone NASAL SPRAY 50MCG* 16 gm SPRAY BTL BOTH NARES SCH (08:01)
[2019-09-08] MEDS ORDERED: Cholecalciferol TAB* 1000 UNITS PO SCH (09:00)
[2019-09-08] MEDS ORDERED: Pantoprazole TAB * 40 MG TAB PO SCH (09:00)
[2019-09-08] MEDS ORDERED: Atenolol TAB* 50 MG PO SCH (09:00)
[2019-09-08] MEDS ORDERED: SPIRIVA Respimat* (tiotropium) 2.5 mcg/inh Inhaler INH SCH (09:00)
[2019-09-08] MEDS ORDERED: Spironolactone TAB* 25 MG PO SCH (09:00)
[2019-09-08] MEDS ORDERED: Aspirin 81 mg CHEW TAB* 81 MG TAB.CHEW PO SCH (09:00)
[2019-09-08] MEDS ORDERED: Furosemide TAB* 20 MG PO SCH (09:00)
[2019-09-08] MEDS ORDERED: amLODIPine TAB* 5 MG PO SCH (09:00)
[2019-09-08] MEDS ORDERED: Cyanocobalamin TAB* 500 MCG PO SCH (09:00)
[2019-09-08] MEDS ORDERED: Citalopram TAB* 20 MG PO SCH (09:00)
[2019-09-08] MEDS ORDERED: Losartan TAB* 25 MG PO SCH (09:00)
[2019-09-08] MEDS ORDERED: Potassium Chlor TAB* 20 MEQ TAB.ER PO SCH (09:00)
[2019-09-08] MEDS ORDERED: Clotrimazole/Betamethasone CREAM* 15 GM TOPICAL SCH (09:00)
[2019-09-08] MEDS ORDERED: Atorvastatin* 20 MG TAB PO SCH (09:00)
[2019-09-08] MEDS ORDERED: Regadenoson* 0.4 MG/5 ML SYRINGE ONE (09:43)
[2019-09-08 11:46] VITALS: BP 118/55
--- NOTE | 2019-09-08 17:54 | DS ---
CC: Dr. Aureliano Orozco; Dr. Fran Hernandez DISCHARGE SUMMARY: DATE OF ADMISSION: 09/07/19 DATE OF DISCHARGE: 09/08/19 PRIMARY CARE PROVIDER: Dr. Aureliano Orozco. Dr. Fran Hernandez often acts as the patient's primary care provider. PRIMARY DIAGNOSES: 1. Transient altered mental status. 2. Atypical chest pain. SECONDARY DIAGNOSES: 1. History of multiple myeloma, currently smoldering. 2. 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 3. Hypertension. 4. Anxiety. 5. Question of antiphospholipid antigen positive ? lupus. 6. History of chronic obstructive pulmonary disease. 7. Tobacco use. MEDICATIONS AT THE TIME OF DISCHARGE: 1. Ondansetron 4 mg p.o. q.8 hours p.r.n. 2. Losartan 100 mg p.o. q.h.s. 3. Benzonatate 100 mg p.o. b.i.d. for cough. 4. Incruse Ellipta 62.5 mcg inhaled daily. 5. Bactrim double strength 800/160 one tab p.o. 3 times weekly. 6. Spironolactone 12.5 mg p.o. q.a.m. 7. Prednisone 5 mg p.o. daily. 8. Potassium chloride 20 mEq p.o. daily. 9. Pantoprazole 40 mg p.o. daily. 10. Furosemide 20 mg p.o. daily. 11. Fluticasone 2 sprays both nares b.i.d. 12. Cyanocobalamin 250 mcg p.o. daily. 13. Clotrimazole/betamethasone 1 application topically p.r.n. 14. Citalopram 40 mg p.o. daily. 15. Vitamin D3 1000 units p.o. daily. 16. Atorvastatin 20 mg p.o. daily. 17. Atenolol 50 mg p.o. q.a.m. 18. Aspirin 81 mg p.o. daily. 19. Amlodipine 5 mg p.o. daily. 20. Albuterol inhaler 2 puffs inhaled q.4 hours p.r.n. 21. Acyclovir 800 mg p.o. b.i.d. Medication changes on this hospitalization were: 1. The moving of losartan to 100 mg p.o. q.h.s. 2. The discontinuation of clonazepam, which is actually a medication that is an error from the [facility] medical reconciliation. 3. The discontinuation of pregabalin 50 mg p.o. t.i.d. as the patient has been cutting back and is n on-effective and may be leading to altered mental status. HISTORY OF PRESENT ILLNESS AND HOSPITAL COURSE: A 78-year-old female with above past medical history and notably a recent CVA, treated at [facility], with residual hemianopsia, short-term memory and long- term memory difficulties and issues with cognition, vestibular symptoms and fluctuations in conscious ness, who is presenting with episode of lethargy and per family she reported midsternal chest pain. The HPI is obtained largely from her , who is her caregiver. He reports that since her stroke she has had significant changes to her health care. She has had difficulty speaking, ambulating bec ause of her balance issues and visual deficits and at times become very lethargic during the day. Th is waxes and wanes. Some days are good and some days are bad. Yesterday was a day where she seemed lethargic and less responsive. She complained of chest pain and then was minimally responsive afterw ards and thus her family decided to bring her to the emergency room. Of note, the patient is in phys ical therapy and speech therapy, but does not have home nursing services. Furthermore, her blood pre ssure appears to be labile throughout the day and she has significant polypharmacy with most recently clonazepam being discontinued with thought that it was contributing to her memory deficits and also they feel that the Lyrica may be contributing to her episodes of confusion. Her hospital course by diana fung is as follows: 1. Chest pain. In the emergency room, an EKG was done. EKG was performed in the emergency room chon t showed sinus rhythm with isolated ST depressions 1 mm in V5, but otherwise unremarkable. Troponin was 0.01 at this time. Blood pressure was stable. Chest x-ray was unremarkable. The patient was ad mitted given her cardiovascular risk factors for rule out ACS and plan to have a nuclear stress test. She had no further episodes of chest pain while she was in the hospital. On hospital day 2, she steven d a nuclear medicine stress test that was low risk and had no further complaints. 2. Intermittent altered mental status. I suspect this is related to her post stroke condition and p ossibly in fluctuations with her blood pressure and furthermore she has significant polypharmacy and caregiver who seems relatively overwhelmed. We discussed discontinuing the Lyrica to determine if th is might help with her altered mental status, and furthermore on review of her home blood pressure lo , she is quite hypertensive in the morning, less hypertensive in the evenings and we decided instea d of all 3 agents being given in the morning to give 1 agent at night to determine if this might help with her blood pressure spikes and fluctuations. 3. Multiple myeloma. Does not appear to be contributing to this presentation. She is on treatment, in remission and also remains on prophylactic therapy for an immunocompromised person including Bactr im, valacyclovir. 4. Antiphospholipid antigen positive. She has outpatient followup with Dr. Hernandez. 5. Hypertension. Medications remain as losartan 100 mg p.o. q.h.s., amlodipine 5 mg p.o. daily, ate nolol 50 mg p.o. daily, Lasix 20 mg p.o. daily, spironolactone 12.5 mg p.o. daily. These may need to be adjusted further between a.m. and p.m. as she has tenuous and labile blood pressure. 6. Anxiety. The patient's citalopram was continued. Her clonazepam was discontinued in [facility] and she remains off of it. This was an error in our chart. 7. History of COPD/asthma and tobacco use. Her home inhalers were continued. 8. DVT prophylaxis: The patient was placed on enoxaparin. On the day of discharge, the patient is tolerating diet. She has no complaints. She and her family a re counseled that her stress test was negative and their medication list is clarified and furthermore care management has worked with the family to arrange for visiting nurse services to help with her c omplicated polypharmacy. LABS AND STUDIES DONE DURING THIS HOSPITALIZATION: Labs on the day of admission: White blood cell co unt 5.4, hemoglobin 12.5, hematocrit 38, platelets 123. BMP with sodium 139, potassium 3.7, chloride 106, carbon dioxide 27, anion gap 6, BUN 18, creatinine 0.84, glucose 121. AST 17, ALT 18, alk phos 67. Troponin 0.01. Total protein 5.6, albumin 3.8, globulin 1.8. UA was unremarkable. Imaging included a chest x-ray with no acute intrathoracic pathology. EKGs: Normal sinus rhythm with [address] depressions in V5 only. Nuclear medicine scan was low risk for probability of ischemic event. ITEMS TO FOLLOW UP ON STATUS POST DISCHARGE: 1. Post stroke care in a patient with fluctuating altered mental status that could be related to rahel ypharmacy or blood pressure. Close blood pressure log and further support in the home may aid this f virgie in navigating her post stroke care. Furthermore, from a polypharmacy standpoint, her pregabalin was wholly discontinued. 2. Hypertension. The patient is on numerous blood pressure medications. Losartan was moved to the evening and further medications may need to be moved to the evening or discontinued altogether with m ildly permissive high blood pressure systolic 140 to 150 given age and functional status. DISPOSITION AT THE TIME OF DISCHARGE: Stable to be discharged to home with visiting nurse services. TIME SPENT: Forty-five minutes was spent on the planning of this discharge with over half of that wa s spent directly at the bedside of the patient providing direct patient care. Plan of care was discussed with the patient and family, who have no further questions and are amenabl e to be discharged to home. [id number]/[facility] #: [id number]
== END 2019-09-08 13:21 | disposition home or self-care (01) ==
LOC: ED 08:40 → MEDTELE 13:02
PROVIDERS: ADMIT Internal Medicine; ATTEND Internal Medicine
DX: R41.82 Altered mental status, unspecified (principal); R07.89 Other chest pain; C90.01 Multiple myeloma in remission; I10 Essential (primary) hypertension; F41.9 Anxiety disorder, unspecified; E78.00 Pure hypercholesterolemia, unspecified; M32.9 Systemic lupus erythematosus, unspecified; J44.9 Chronic obstructive pulmonary disease, unspecified; Z86.73 Personal history of transient ischemic attack (TIA), and cerebral infarction without residual deficits; Z79.82 Long term (current) use of aspirin; Z79.899 Other long term (current) drug therapy; Z87.891 Personal history of nicotine dependence; Z86.19 Personal history of other infectious and parasitic diseases; R94.31 Abnormal electrocardiogram [ECG] [EKG]
CPT/HCPCS: 36415; 71046; 78452; 80053; 81003; 82550; 82553; 84484; 85025; 85610; 85730; 86140; 93005; 93017; 94640; 96372; 99226; 99233; 99284; A9270-GY; A9502; G0378; J1650; J2785; J3535; J7512

== ENCOUNTER 2019-09-18 13:20 | Observation (INO) | payer MEDICARE ==
[2019-09-18 14:22] LABS: ABS Lymphocytes 0.7 10^3/ul (1.0-4.8); ABS Monocytes 0.5 10^3/ul (0-0.8); ABS Neutrophils 3.6 10^3/ul (1.5-7.7); Eosinophil % 0.5 %; Hematocrit 39 % (35-47); Hemoglobin 13.3 g/dL (12.0-16.0); Mean Corpuscular HGB Conc 34 g/dL (31-36); Mean Corpuscular Hemoglobin 31 pg (27-31); Mean Corpuscular Volume 92 fL (80-97); Mean Platelet Volume 8.6 fL (7.4-10.4); Platelet Count 112 10^3/uL (150-450); Red Blood Count 4.29 10^6 /uL (3.70-4.87); Red Cell Distribution Width 16 % (10-15)
[2019-09-18 14:39] LABS: Albumin 3.9 g/dL (3.2-5.2); Albumin/Globulin Ratio 2.2 (1-3); BUN/Creatinine Ratio 15.7 (8-20); Calcium 8.3 mg/dL (8.6-10.3); EGFR African American 97.7 (>60); EGFR Non-African American 80.7 (>60); Globulin 1.8 g/dL (2-4); Total Bilirubin 1.1 mg/dL (0.2-1.0); Total Protein 5.7 g/dL (6.4-8.9)
[2019-09-18] MEDS ORDERED: Acetaminophen TAB* 325 MG PO PRN (17:20)
[2019-09-18] MEDS: Ondansetron INJ* 2 MG/ML VIAL IV PRN (17:55)
[2019-09-18] MEDS: NS 0.9% 1000 ML** 1,000 ML IV SCH (17:55)
[2019-09-18] MEDS: KCL 10 MEQ/50 ML IVPREMIX* 10 MEQ/50 ML BAG IV SCH ×2 (17:55→20:27)
[2019-09-18] MEDS ORDERED: Albuterol HFA INHALER* 8 gm MDI INH PRN (18:41)
[2019-09-18] MEDS ORDERED: Magnesium Hydroxide LIQ* 30 ML UDC PO ONE (18:45)
[2019-09-18] MEDS ORDERED: Ondansetron INJ* 2 MG/ML VIAL IV ONE (19:55)
[2019-09-18] MEDS: Fluticasone NASAL SPRAY 50MCG* 16 gm SPRAY BTL BOTH NARES SCH (20:08)
[2019-09-18] MEDS: Losartan TAB* 25 MG PO SCH (20:31)
[2019-09-18] MEDS: Senna TAB 8.6 mg* TAB PO SCH (20:31)
[2019-09-19] MEDS ORDERED: KCL 10 MEQ/50 ML IVPREMIX* 10 MEQ/50 ML BAG ONE (00:04)
[2019-09-19] MEDS: KCL 10 MEQ/50 ML IVPREMIX* 10 MEQ/50 ML BAG IV SCH (00:07)
[2019-09-19] MEDS: NS 0.9% 1000 ML** 1,000 ML IV SCH (05:27)
[2019-09-19 06:37] LABS: Albumin 3.6 g/dL (3.2-5.2); Albumin/Globulin Ratio 2.1 (1-3); BUN/Creatinine Ratio 18.3 (8-20); Calcium 8.3 mg/dL (8.6-10.3); EGFR African American 96.1 (>60); EGFR Non-African American 79.4 (>60); Globulin 1.7 g/dL (2-4); Potassium 3.6 mmol/L (3.5-5.0); Total Protein 5.3 g/dL (6.4-8.9)
[2019-09-19 06:45] LABS: ABS Lymphocytes 0.6 10^3/ul (1.0-4.8); ABS Monocytes 0.6 10^3/ul (0-0.8); ABS Neutrophils 3.9 10^3/ul (1.5-7.7); Eosinophil % 0.7 %; Hematocrit 37 % (35-47); Hemoglobin 12.6 g/dL (12.0-16.0); Lymphocyte % 11.7 %; Mean Corpuscular HGB Conc 34 g/dL (31-36); Mean Corpuscular Hemoglobin 31 pg (27-31); Mean Corpuscular Volume 91 fL (80-97); Mean Platelet Volume 8.7 fL (7.4-10.4); Nucleated Red Blood Cells % 0.1; Platelet Count 98 10^3/uL (150-450); Red Blood Count 4.03 10^6 /uL (3.70-4.87); Red Cell Distribution Width 17 % (10-15); White Blood Count 5.1 10^3/uL (3.5-10.8)
[2019-09-19] MEDS: Atenolol TAB* 50 MG PO SCH (07:40)
[2019-09-19] MEDS: Atorvastatin* 20 MG TAB PO SCH (07:40)
[2019-09-19] MEDS: Potassium Chlor TAB* 20 MEQ TAB.ER PO SCH (07:40)
[2019-09-19] MEDS: Pantoprazole TAB * 40 MG TAB PO SCH (07:40)
[2019-09-19] MEDS: Aspirin 81 mg CHEW TAB* 81 MG TAB.CHEW PO SCH (07:40)
[2019-09-19] MEDS: Cyanocobalamin TAB* 500 MCG PO SCH (07:41)
[2019-09-19] MEDS: amLODIPine TAB* 5 MG PO SCH (07:41)
[2019-09-19] MEDS: Citalopram TAB* 40 MG PO SCH (07:41)
[2019-09-19] MEDS: Spironolactone TAB* 25 MG PO SCH (07:41)
[2019-09-19] MEDS: Furosemide TAB* 20 MG PO SCH (07:41)
[2019-09-19] MEDS: Clotrimazole/Betamethasone CREAM* 15 GM TOPICAL SCH (07:46)
[2019-09-19] MEDS: Fluticasone NASAL SPRAY 50MCG* 16 gm SPRAY BTL BOTH NARES SCH ×2 (07:47→19:54)
[2019-09-19] MEDS: SPIRIVA Respimat* (tiotropium) 2.5 mcg/inh Inhaler INH SCH (08:05)
[2019-09-19] MEDS: Ondansetron INJ* 2 MG/ML VIAL IV PRN (08:10)
--- NOTE | 2019-09-19 09:59 | PN ---
Progress Note - Progress Note Date of Service: 09/19/19 SOAP: Subjective: [Reports feeling better this morning. Ate a decent amount of her breakfast. Nausea is still present, but better. Had a BM this am. No abdominal pain. Reviewed her medications in detail with her at bedside this morning.] Objective: [ Vital Signs: Temp Pulse Resp BP Pulse Ox 98.4 F 80 18 147/66 94 09/19/19 07:00 09/19/19 07:00 09/19/19 07:51 09/19/19 07:00 09/19/19 07:00 Acetaminophen (Tylenol Tab*) 650 mg PO Q4H PRN PRN Reason: pain/fever Albuterol (Ventolin Hfa Inhaler*) 2 puff INH Q4H PRN PRN Reason: SOB/WHEEZING Amlodipine Besylate (Norvasc Tab*) 5 mg PO DAILY [facility] Last Admin: 09/19/19 07:41 Dose: 5 mg Aspirin (Aspirin 81 Mg Chew Tab*) 81 mg PO DAILY [facility] Last Admin: 09/19/19 07:40 Dose: 81 mg Atenolol (Tenormin Tab*) 50 mg PO DAILY [facility] Last Admin: 09/19/19 07:40 Dose: 50 mg Atorvastatin Calcium (Lipitor*) 20 mg PO DAILY [facility] Last Admin: 09/19/19 07:40 Dose: 20 mg Betamethasone/Clotrimazole (Lotrisone Cream*) 1 applic TOPICAL DAILY [facility] Last Admin: 09/19/19 07:46 Dose: Not Given Citalopram Hydrobromide (Celexa Tab*) 40 mg PO DAILY [facility] Last Admin: 09/19/19 07:41 Dose: 40 mg Cyanocobalamin (Vitamin B12 Tab*) 250 mcg PO DAILY [facility] Last Admin: 09/19/19 07:41 Dose: 250 mcg Fluticasone Propionate (Flonase Nasal [place] 50mcg*) 2 spray BOTH NARES BID [facility] Last Admin: 09/19/19 07:47 Dose: 2 spray Furosemide (Lasix Tab*) 20 mg PO DAILY [facility] Last Admin: 09/19/19 07:41 Dose: 20 mg Sodium Chloride (Ns 0.9% 1000 Ml) 1,000 mls @ 100 mls/hr IV PER RATE [facility] Last Admin: 09/19/19 05:27 Dose: 100 mls/hr Losartan Potassium (Cozaar Tab*) 100 mg PO BEDTIME [facility] Last Admin: 09/18/19 20:31 Dose: 100 mg Ondansetron HCl (Zofran Inj*) 4 mg IV Q4H PRN PRN Reason: NAUSEA/VOMITING Last Admin: 09/19/19 08:10 Dose: 4 mg Pantoprazole Sodium (Protonix Tab*) 40 mg PO DAILY [facility] Last Admin: 09/19/19 07:40 Dose: 40 mg Potassium Chloride (Klor Con Er Tab*) 20 meq PO DAILY [facility] Last Admin: 09/19/19 07:40 Dose: 20 meq Prednisone (Deltasone 5 Mg Tab) 5 mg PO DAILY [facility] Last Admin: 09/19/19 07:40 Dose: 5 mg Senna (Senokot 8.6 Mg Tab*) 2 tab PO BEDTIME [facility] Last Admin: 09/18/19 20:31 Dose: 2 tab Spironolactone (Aldactone Tab*) 12.5 mg PO DAILY [facility] Last Admin: 09/19/19 07:41 Dose: 12.5 mg Tiotropium [place] (Spiriva Respimat 2.5 Mcg) 2 puff INH DAILY [facility] Last Admin: 09/19/19 08:05 Dose: Not Given Laboratory Results - last 24 hr 09/18/19 09/18/19 09/18/19 14:04 14:04 18:27 WBC 5.0 RBC 4.29 Hgb 13.3 Hct 39 MCV 92 MCH 31 MCHC 34 RDW 16 H Plt Count 112 L MPV 8.6 Neut % (Auto) 72.9 Lymph % (Auto) 15.0 Russell % (Auto) 10.8 Eos % (Auto) 0.5 Baso % (Auto) 0.8 Absolute Neuts (auto) 3.6 Absolute Lymphs (auto) 0.7 L Absolute Monos (auto) 0.5 Absolute Eos (auto) 0.0 Absolute Basos (auto) 0.0 Absolute Nucleated RBC 0.0 Nucleated RBC % 0.0 Sodium 143 Potassium 3.0 L Chloride 111 Carbon Dioxide 25 Anion Gap 7 BUN 11 Creatinine 0.70 Est GFR ( Amer) 97.7 Est GFR (Non-Af Amer) 80.7 BUN/Creatinine Ratio 15.7 Glucose 98 Calcium 8.3 L Magnesium 2.0 Total Bilirubin 1.10 H AST 19 ALT 16 Alkaline Phosphatase 66 Total Creatine Kinase 31 Total Protein 5.7 L Albumin 3.9 Globulin 1.8 L Albumin/Globulin Ratio 2.2 TSH Cancelled 3.20 Cortisol 09/19/19 09/19/19 05:49 05:49 WBC 5.1 RBC 4.03 Hgb 12.6 Hct 37 MCV 91 MCH 31 MCHC 34 RDW 17 H Plt Count 98 L MPV 8.7 Neut % (Auto) 75.3 Lymph % (Auto) 11.7 Russell % (Auto) 12.1 Eos % (Auto) 0.7 Baso % (Auto) 0.2 Absolute Neuts (auto) 3.9 Absolute Lymphs (auto) 0.6 L Absolute Monos (auto) 0.6 Absolute Eos (auto) 0.0 Absolute Basos (auto) 0.0 Absolute Nucleated RBC 0.0 Nucleated RBC % 0.1 Sodium 142 Potassium 3.6 Chloride 111 Carbon Dioxide 24 Anion Gap 7 BUN 13 Creatinine 0.71 Est GFR ( Amer) 96.1 Est GFR (Non-Af Amer) 79.4 BUN/Creatinine Ratio 18.3 Glucose 93 Calcium 8.3 L Magnesium Total Bilirubin 1.00 AST 17 ALT 16 Alkaline Phosphatase 67 Total Creatine Kinase Total Protein 5.3 L Albumin 3.6 Globulin 1.7 L Albumin/Globulin Ratio 2.1 TSH Cortisol 17.34 Exam: Gen: well appearing 78 yo female, ambulating in the halls with an aide and walker HEENT: MMM CV: RRR, no m/r/g Resp: few crackles at lung bases Abd: soft nonTTP Ext: trace edema Psych: alert, responsive and appropriate in conversation] Assessment: [This is a 78 yo female with multiple myeloma and recent CVA admitted with generalized malaise and anorexia without a clear cause. She is greatly improved with IV and electrolyte repletion. Reviewed medications in detail with her , question if her regular use of compazine was contributing to her flat affect and malaise. She had not been taking her protonix for >1 week which may have contributed to her abd pain.] Plan: [1. Malaise - multifactorial and improved - am cortisol, CPK and TSH all WNL 2. FEN - encourage po intake - K corrected, cont usual oral supplementation 3. CVA - cont BP meds, statin and ASA 4. Myeloma - stable on maintenance daratumumab - can stop Bactrim and acyclovir for infection prophylaxis as she is no longer on melphalan and velcade Dispo: greatly improved, but her is very anxious about taking her home today in fear of her deteriorating again. Will plan on dc home tomorrow am.]
[2019-09-19] MEDS: Losartan TAB* 25 MG PO SCH (19:52)
[2019-09-19] MEDS: Senna TAB 8.6 mg* TAB PO SCH (19:52)
[2019-09-20 06:18] LABS: ABS Lymphocytes 0.7 10^3/ul (1.0-4.8); ABS Monocytes 0.6 10^3/ul (0-0.8); ABS Neutrophils 3.8 10^3/ul (1.5-7.7); Eosinophil % 0.9 %; Hematocrit 37 % (35-47); Hemoglobin 12.6 g/dL (12.0-16.0); Lymphocyte % 13.4 %; Mean Corpuscular HGB Conc 34 g/dL (31-36); Mean Corpuscular Hemoglobin 31 pg (27-31); Mean Corpuscular Volume 92 fL (80-97); Mean Platelet Volume 8.6 fL (7.4-10.4); Nucleated Red Blood Cells % 0.1; Platelet Count 110 10^3/uL (150-450); Red Blood Count 4.07 10^6 /uL (3.70-4.87); Red Cell Distribution Width 17 % (10-15); White Blood Count 5.1 10^3/uL (3.5-10.8)
[2019-09-20 06:35] LABS: Albumin 3.9 g/dL (3.2-5.2); Albumin/Globulin Ratio 2.3 (1-3); BUN/Creatinine Ratio 16.9 (8-20); EGFR African American 87.5 (>60); EGFR Non-African American 72.3 (>60); Globulin 1.7 g/dL (2-4); Potassium 3.6 mmol/L (3.5-5.0); Total Protein 5.6 g/dL (6.4-8.9)
[2019-09-20 08:02] VITALS: BP 155/68
[2019-09-20] MEDS: Fluticasone NASAL SPRAY 50MCG* 16 gm SPRAY BTL BOTH NARES SCH (08:18)
[2019-09-20] MEDS: Spironolactone TAB* 25 MG PO SCH (08:18)
[2019-09-20] MEDS: Atorvastatin* 20 MG TAB PO SCH (08:18)
[2019-09-20] MEDS: amLODIPine TAB* 5 MG PO SCH (08:18)
[2019-09-20] MEDS: Potassium Chlor TAB* 20 MEQ TAB.ER PO SCH (08:18)
[2019-09-20] MEDS: Citalopram TAB* 40 MG PO SCH (08:18)
[2019-09-20] MEDS: Pantoprazole TAB * 40 MG TAB PO SCH (08:19)
[2019-09-20] MEDS: Cyanocobalamin TAB* 500 MCG PO SCH (08:19)
[2019-09-20] MEDS: Aspirin 81 mg CHEW TAB* 81 MG TAB.CHEW PO SCH (08:19)
[2019-09-20] MEDS: Atenolol TAB* 50 MG PO SCH (08:19)
[2019-09-20] MEDS: Furosemide TAB* 20 MG PO SCH (08:19)
[2019-09-20] MEDS: SPIRIVA Respimat* (tiotropium) 2.5 mcg/inh Inhaler INH SCH (08:20)
[2019-09-20] MEDS: Clotrimazole/Betamethasone CREAM* 15 GM TOPICAL SCH (08:38)
[2019-09-20 09:56] LABS: C Reactive Protein 4.4 mg/L (<8.01)
--- NOTE | 2019-09-20 11:01 | DS ---
CC: Dr. Orozco; Dr. Hernandez.* DISCHARGE SUMMARY: DATE OF ADMISSION: 09/18/19 DATE OF DISCHARGE: 09/20/19 PRIMARY CARE PROVIDER: Dr. Orozco. PRIMARY ONCOLOGIST: Dr. Hernandez. ATTENDING PHYSICIAN: Dr. Arias.* (DICTATED BY ELVIA CLINTON) DISCHARGING PROVIDER: ELVIA Clinton PRIMARY DISCHARGE DIAGNOSES: 1. Hypokalemia. 2. Weakness and nausea of unclear etiology. SECONDARY DISCHARGE DIAGNOSES: 1. Multiple myeloma. 2. Relatively recent ischemic cerebrovascular accident. DISCHARGE MEDICATIONS: 1. Amlodipine 5 mg p.o. daily. 2. Aspirin 81 mg p.o. daily. 3. Atenolol 50 mg p.o. daily. 4. Atorvastatin 20 mg p.o. daily. 5. Lasix 20 mg p.o. daily. 6. Zofran 4 mg p.o. q.8 hours as needed for nausea. 7. Protonix 40 mg p.o. daily. 8. Prednisone 5 mg p.o. daily. 9. Spironolactone 12.5 mg p.o. daily. 10. Incruse inhaler 62.5 mcg inhaled daily. 11. Albuterol inhaler 2 puffs inhaled q.4 hours as needed for shortness of breath. 12. Vitamin D3 2000 units p.o. daily. 13. Celexa 20 mg p.o. daily. 14. Vitamin B12 2500 mcg p.o. daily. 15. Losartan 100 mg p.o. at bedtime. 16. Potassium chloride 20 mEq p.o. daily. HOSPITAL IMAGING: Gallbladder ultrasound is unremarkable. HOSPITAL COURSE: This is a 78-year-old female well-known to the oncology service with multiple myeloma, currently treated with maintenance daratumumab with good control of disease; who presented to the Oncology Clinic with generalized malaise, progressive weakness, and refractory nausea. The patient had been seen on two other occasions over the week prior to admission with similar complaints and unfortunately did not note any improvement. She was treated empirically for urinary tract infection with Keflex. Urine culture eventually grew enterococcus, a relatively sensitive organism but in only 10, 000 to 25,000 colonies. Keflex was the antibiotic of choice which should have provided appropriate treatment, but she noted no improvement in symptoms. At the time of evaluation in the Oncology Clinic, vital signs were normal. She had somewhat of a flat affect, but otherwise was alert and appropriate in conversation, complaining of nearly constant nausea and had some epigastric and right upper quadrant tenderness to palpation. Potassium was noted to be low at 3.0. She was subsequently admitted to the hospital for a period of observation for further evaluation and supportive management. Potassium was repleted with IV supplementation and her medication list was reviewed in detail. She had been taking Compazine on a scheduled basis to help to control her nausea. Upon review with her , it appeared that she had not been taking her Protonix in greater than a week. Her Protonix was resumed, her potassium was repleted and Compazine was discontinued. Ultrasound of the right upper quadrant was performed which showed no pathology. The patient noted significant improvement in her symptoms over her hospital stay. Her nausea nearly completely resolved as did her abdominal discomfort. She was also noted to be constipated at the time of admission, which improved with magnesium citrate and senna. Exact etiology as the patient's constellation of symptoms is not entirely clear but most likely iatrogenic. Clearly her nausea preceded her regular use of Compazine, but the Compazine may have exacerbated her malaise and progressive confusion at home that concerned her . DISPOSITION AND FOLLOWUP PLAN: The patient is being discharged to home in stable condition where she lives with her . Medication list was reviewed in detail and reconciled with medication bottles and the patient and her present. She will follow up in the Oncology Clinic in approximately 10 days. ELVIA CLINTON [id number]/[facility] #: [id number] [facility]IT[facility]ney
[2019-09-20 11:24] LABS: Erythrocyte Sed Rate 7 mm/Hr (0-29)
== END 2019-09-20 10:45 | disposition home or self-care (01) ==
LOC: CHOA 13:20 → MED 16:28
PROVIDERS: ADMIT Internal Medicine Hematology & Oncology; ATTEND Internal Medicine Hematology & Oncology
DX: E87.6 Hypokalemia (principal); R53.1 Weakness; R11.0 Nausea; C90.00 Multiple myeloma not having achieved remission; Z86.73 Personal history of transient ischemic attack (TIA), and cerebral infarction without residual deficits; Z79.82 Long term (current) use of aspirin; Z79.899 Other long term (current) drug therapy; M32.9 Systemic lupus erythematosus, unspecified; Z88.8 Allergy status to other drugs, medicaments and biological substances; Z88.1 Allergy status to other antibiotic agents; Z88.0 Allergy status to penicillin; Z79.51 Long term (current) use of inhaled steroids; Z87.891 Personal history of nicotine dependence
CPT/HCPCS: 36415; 76705; 80053; 82533; 82550; 83735; 84443; 85025; 85652; 86140; 96361; 96374; 96376; 99217; 99220; 99226; A9270-GY; G0378; J2405; J3480; J3535; J7512

== ENCOUNTER 2020-07-27 08:54 | Inpatient (IN) ==
[2020-07-27] MEDS ORDERED: NS 0.9% 1000 ml BAG 1,000 ML IV ONE (09:05)
[2020-07-27 09:16] LABS: ABS Eosinophils 0.1 10^3/ul (0-0.6); ABS Lymphocytes 0.8 10^3/ul (1.0-4.8); ABS Monocytes 0.5 10^3/ul (0-0.8); ABS Neutrophils 4.7 10^3/ul (1.5-7.7); Eosinophil % 1.3 %; Hematocrit 39 % (35-47); Hemoglobin 12.9 g/dL (12.0-16.0); Lymphocyte % 12.5 %; Mean Corpuscular HGB Conc 33 g/dL (31-36); Mean Corpuscular Hemoglobin 29 pg (27-31); Mean Corpuscular Volume 87 fL (80-97); Mean Platelet Volume 8.7 fL (7.4-10.4); Nucleated Red Blood Cells % 0.1; Platelet Count 130 10^3/uL (150-450); Red Blood Count 4.52 10^6 /uL (3.70-4.87); Red Cell Distribution Width 16 % (10-15); White Blood Count 6.1 10^3/uL (3.5-10.8)
[2020-07-27 09:24] LABS: Activated Partial Thrombo Time 23.7 seconds (26.0-38.0); INR 0.97 (0.82-1.09)
[2020-07-27] MEDS ORDERED: Iodixanol (CONTRAST) 320 MG/ML 100 ML SDV IV ONE (09:25)
[2020-07-27 09:31] LABS: Albumin 4.1 g/dL (3.2-5.2); Albumin/Globulin Ratio 1.9 (1-3); BUN/Creatinine Ratio 20.2 (8-20); Calcium 9.1 mg/dL (8.6-10.3); EGFR African American 78.9 (>60); EGFR Non-African American 65.2 (>60); Globulin 2.2 g/dL (2-4); HDL Cholesterol 60.3 mg/dL; Potassium 3.8 mmol/L (3.5-5.0); Total Bilirubin 0.8 mg/dL (0.2-1.0); Total Protein 6.3 g/dL (6.4-8.9)
[2020-07-27 09:33] LABS: Troponin I 0.01 ng/mL (<0.03)
[2020-07-27] MEDS ORDERED: Al Hydrox/Mg Hydrox/Simet LIQ 30 ML UDC PO PRN (10:20)
[2020-07-27] MEDS ORDERED: Albuterol HFA INHALER 8 gm MDI INH PRN (10:27)
[2020-07-27] MEDS ORDERED: NS 0.9% 1000 ml BAG 1,000 ML IV SCH (10:30)
[2020-07-27 11:42] LABS: C Reactive Protein 3.46 mg/L (<8.01)
[2020-07-27] MEDS: Heparin 5000 UNITS/ML 1 mL VIAL SUBCUT SCH ×2 (15:30→23:22)
[2020-07-27] MEDS: Fluticasone NASAL SPRAY 50MCG 16 gm SPRAY BTL INTRANASAL SCH (21:04)
[2020-07-28] MEDS: Heparin 5000 UNITS/ML 1 mL VIAL SUBCUT SCH ×3 (05:26→19:25)
[2020-07-28 06:20] LABS: Urine Appearance Cloudy; Urine Bilirubin Negative (Negative); Urine Blood Negative (Negative); Urine Color Yellow; Urine Glucose Negative (Negative); Urine Ketones 1+ (Negative); Urine Nitrite Negative (Negative); Urine Protein Negative (Negative); Urine Specific Gravity 1.027 (1.010-1.030); Urine Urobilinogen Negative (Negative)
[2020-07-28 07:17] LABS: ABS Eosinophils 0.1 10^3/ul (0-0.6); ABS Lymphocytes 0.6 10^3/ul (1.0-4.8); ABS Monocytes 0.4 10^3/ul (0-0.8); ABS Neutrophils 4.5 10^3/ul (1.5-7.7); Eosinophil % 1.4 %; Hematocrit 35 % (35-47); Hemoglobin 11.8 g/dL (12.0-16.0); Lymphocyte % 9.9 %; Mean Corpuscular HGB Conc 33 g/dL (31-36); Mean Corpuscular Hemoglobin 29 pg (27-31); Mean Corpuscular Volume 87 fL (80-97); Mean Platelet Volume 8.8 fL (7.4-10.4); Nucleated Red Blood Cells % 0.1; Platelet Count 109 10^3/uL (150-450); Red Blood Count 4.07 10^6 /uL (3.70-4.87); Red Cell Distribution Width 15 % (10-15); White Blood Count 5.6 10^3/uL (3.5-10.8)
[2020-07-28 07:29] LABS: Calcium 8.3 mg/dL (8.6-10.3); EGFR African American 83.5 (>60); Potassium 3.4 mmol/L (3.5-5.0)
[2020-07-28] MEDS: Fluticasone NASAL SPRAY 50MCG 16 gm SPRAY BTL INTRANASAL SCH ×2 (09:09→19:24)
[2020-07-28] MEDS: Cholecalciferol (VIT D3) 1,000 unit TAB PO SCH (09:10)
[2020-07-28] MEDS: Senna TAB 8.6 mg TAB PO SCH (09:10)
[2020-07-28] MEDS: SPIRIVA Respimat (tiotropium) 2.5 mcg/inh Inhaler INH SCH (09:49)
[2020-07-29] MEDS: Heparin 5000 UNITS/ML 1 mL VIAL SUBCUT SCH (05:12)
[2020-07-29 06:28] LABS: BUN/Creatinine Ratio 27.6 (8-20); Calcium 9.4 mg/dL (8.6-10.3); EGFR African American 75.8 (>60); EGFR Non-African American 62.6 (>60); Potassium 3.4 mmol/L (3.5-5.0)
[2020-07-29] MEDS: SPIRIVA Respimat (tiotropium) 2.5 mcg/inh Inhaler INH SCH (08:08)
[2020-07-29] MEDS: Cholecalciferol (VIT D3) 1,000 unit TAB PO SCH (08:33)
[2020-07-29] MEDS: Senna TAB 8.6 mg TAB PO SCH (08:34)
[2020-07-29 12:50] VITALS: BP 139/57
[2020-07-29] MEDS: Fluticasone NASAL SPRAY 50MCG 16 gm SPRAY BTL INTRANASAL SCH (12:58)
== END 2020-07-29 16:01 | disposition home or self-care (01) | DRG 64 ==
LOC: ED 08:54 → MED 10:20 → MEDTELE 07-28 02:34
PROVIDERS: ADMIT Internal Medicine; ATTEND Internal Medicine

== ENCOUNTER 2020-09-04 09:00 | Inpatient (IN) ==
[2020-09-04] MEDS ORDERED: NS 0.9% 1000 ml BAG 1,000 ML IV ONE (09:20)
[2020-09-04 10:16] LABS: ALT 13 U/L (7-52); AST 16 U/L (13-39); Albumin 3.7 g/dL (3.2-5.2); Albumin/Globulin Ratio 1.8 (1-3); Alkaline Phosphatase 80 U/L (34-104); Anion Gap 8 mmol/L (2-11); BUN/Creatinine Ratio 19.5 (8-20); Blood Urea Nitrogen 17 mg/dL (6-24); CO2 Carbon Dioxide 27 mmol/L (22-32); Calcium 8.3 mg/dL (8.6-10.3); Chloride 105 mmol/L (101-111); Creatine Kinase 30 U/L (10-223); EGFR African American 75.8 (>60); EGFR Non-African American 62.6 (>60); Globulin 2.1 g/dL (2-4); Glucose 132 mg/dL (70-100); Magnesium 1.7 mg/dL (1.9-2.7); Potassium 3.1 mmol/L (3.5-5.0); Sodium 140 mmol/L (135-145); Total Protein 5.8 g/dL (6.4-8.9)
[2020-09-04] MEDS ORDERED: Magnesium Sulfate 2 gm BAG 2 GM/50 ML BAG IVPB ONE (10:18)
[2020-09-04 10:28] LABS: Troponin I 0.16 ng/mL (<0.03)
[2020-09-04 10:43] LABS: ABS Lymphocytes 0.2 10^3/ul (1.0-4.8); ABS Monocytes 0.3 10^3/ul (0-0.8); ABS Neutrophils 4.6 10^3/ul (1.5-7.7); Hematocrit 37 % (35-47); Hemoglobin 12.2 g/dL (12.0-16.0); Lymphocyte % 3.4 %; Mean Corpuscular HGB Conc 33 g/dL (31-36); Mean Corpuscular Hemoglobin 28 pg (27-31); Mean Corpuscular Volume 86 fL (80-97); Mean Platelet Volume 8.7 fL (7.4-10.4); Platelet Count 67 10^3/uL (150-450); Red Blood Count 4.28 10^6 /uL (3.70-4.87); Red Cell Distribution Width 15 % (10-15); White Blood Count 5.1 10^3/uL (3.5-10.8)
[2020-09-04] MEDS ORDERED: cefTRIAXone 1 gm/50 mL NS BAG 1 GM/50 ML BAG IV ONE (10:51)
[2020-09-04] MEDS ORDERED: Azithromycin 500 mg/250 ml NS 500 MG/250 ML BAG IVPB ONE (10:51)
[2020-09-04] MEDS ORDERED: Potassium Chlor 20 meq TAB.ER PO ONE ×2 (10:53→14:26)
[2020-09-04 11:26] LABS: LDH 204 U/L (140-271)
[2020-09-04] MEDS ORDERED: Iohexol 350 (CONTRAST) 500 ML MDV IV ONE (12:08)
[2020-09-04] MEDS ORDERED: Albuterol HFA INHALER 8 gm MDI INH PRN (13:49)
[2020-09-04] MEDS ORDERED: Ondansetron 4 mg VIAL 2 MG/ML 2 ml VIAL IV PRN (13:55)
[2020-09-04] MEDS ORDERED: Al Hydrox/Mg Hydrox/Simet LIQ 30 ML UDC PO PRN (13:55)
[2020-09-04 14:39] LABS: Troponin I 0.54 ng/mL (<0.03)
[2020-09-04] MEDS: NS 0.9% 1000 ml BAG 1,000 ML IV SCH (16:04)
[2020-09-04] MEDS: Enoxaparin 30 MG/0.3 ML SYR SUBCUT SCH (16:04)
[2020-09-04] MEDS: Dexamethasone IV 4 MG/ML VIAL 1 ml VIAL IV SLOW PU SCH (16:06)
[2020-09-04 17:38] LABS: Troponin I 0.63 ng/mL (<0.03)
[2020-09-04] MEDS: Fluticasone NASAL SPRAY 50MCG 16 gm SPRAY BTL INTRANASAL SCH (20:20)
[2020-09-05 00:23] LABS: Troponin I 0.47 ng/mL (<0.03)
[2020-09-05] MEDS: hydrALAZINE 20 mg/ml 1 ML Vial IV IV SLOW PU PRN (03:47)
[2020-09-05] MEDS: NS 0.9% 1000 ml BAG 1,000 ML IV SCH (03:47)
[2020-09-05 05:30] LABS: ABS Lymphocytes 0.1 10^3/ul (1.0-4.8); ABS Monocytes 0.2 10^3/ul (0-0.8); ABS Neutrophils 3.3 10^3/ul (1.5-7.7); Hematocrit 36 % (35-47); Lymphocyte % 2.3 %; Mean Corpuscular HGB Conc 34 g/dL (31-36); Mean Corpuscular Hemoglobin 28 pg (27-31); Mean Corpuscular Volume 84 fL (80-97); Mean Platelet Volume 9.1 fL (7.4-10.4); Platelet Count 68 10^3/uL (150-450); Red Blood Count 4.22 10^6 /uL (3.70-4.87); Red Cell Distribution Width 15 % (10-15); White Blood Count 3.6 10^3/uL (3.5-10.8)
[2020-09-05 05:44] LABS: C Reactive Protein 98.63 mg/L (<8.01)
[2020-09-05 05:54] LABS: Troponin I 0.43 ng/mL (<0.03)
[2020-09-05] MEDS: Fluticasone NASAL SPRAY 50MCG 16 gm SPRAY BTL INTRANASAL SCH ×2 (07:51→20:27)
[2020-09-05] MEDS: Potassium Chlor 20 meq TAB.ER PO SCH (07:52)
[2020-09-05] MEDS: Cholecalciferol (VIT D3) 1,000 unit TAB PO SCH (07:53)
[2020-09-05 09:44] LABS: BUN/Creatinine Ratio 23.8 (8-20); Blood Urea Nitrogen 15 mg/dL (6-24); CO2 Carbon Dioxide 18 mmol/L (22-32); EGFR Non-African American 90.9 (>60); Glucose 178 mg/dL (70-100); Magnesium 2.3 mg/dL (1.9-2.7); Potassium 3.1 mmol/L (3.5-5.0); Sodium 142 mmol/L (135-145)
[2020-09-05 09:47] LABS: Anion Gap 12 mmol/L (2-11); Chloride 112 mmol/L (101-111)
[2020-09-05] MEDS: Sulfamethox/Trimethoprim DS TAB 800/160 mg PO SCH (10:01)
[2020-09-05] MEDS ORDERED: Potassium Chlor 20 meq TAB.ER PO ONE (10:56)
[2020-09-05] MEDS ORDERED: KCL 20 MEQ/100 ML IVPREMIX 20 MEQ/100 ML BAG IV SCH (11:00)
[2020-09-05] MEDS: Dexamethasone IV 4 MG/ML VIAL 1 ml VIAL IV SLOW PU SCH (12:20)
[2020-09-05] MEDS: KCL 10 MEQ/50 ML IVPREMIX 10 MEQ/50 ML BAG IV SCH ×2 (12:23→15:52)
[2020-09-05] MEDS: Enoxaparin 30 MG/0.3 ML SYR SUBCUT SCH (15:52)
[2020-09-05 17:03] LABS: Urine Appearance Clear; Urine Bilirubin Negative (Negative); Urine Blood 1+ (Negative); Urine Color Yellow; Urine Glucose Negative (Negative); Urine Ketones Trace (Negative); Urine Nitrite Negative (Negative); Urine Protein Negative (Negative); Urine Specific Gravity 1.013 (1.010-1.030); Urine Urobilinogen Negative (Negative)
[2020-09-05 17:21] LABS: Urine Bacteria Absent (Absent); Urine Red Blood Cell 2+(6-10/hpf) (Absent); Urine Squamous Epithelial Cell Present (Absent); Urine White Blood Cell Trace(0-5/hpf) (Absent)
[2020-09-06] MEDS: hydrALAZINE 20 mg/ml 1 ML Vial IV IV SLOW PU PRN ×2 (05:01→10:39)
[2020-09-06 06:26] LABS: BUN/Creatinine Ratio 21.6 (8-20); Calcium 8.3 mg/dL (8.6-10.3); EGFR African American 91.4 (>60); EGFR Non-African American 75.5 (>60); Potassium 3.5 mmol/L (3.5-5.0)
[2020-09-06] MEDS: Potassium Chlor 20 meq TAB.ER PO SCH (10:40)
[2020-09-06] MEDS: Fluticasone NASAL SPRAY 50MCG 16 gm SPRAY BTL INTRANASAL SCH ×2 (10:41→20:44)
[2020-09-06] MEDS: Cholecalciferol (VIT D3) 1,000 unit TAB PO SCH (10:41)
[2020-09-06] MEDS: Enoxaparin 30 MG/0.3 ML SYR SUBCUT SCH (14:59)
[2020-09-07] MEDS: hydrALAZINE 20 mg/ml 1 ML Vial IV IV SLOW PU PRN (04:03)
[2020-09-07] MEDS: Fluticasone NASAL SPRAY 50MCG 16 gm SPRAY BTL INTRANASAL SCH (09:30)
[2020-09-07] MEDS: Potassium Chlor 20 meq TAB.ER PO SCH (09:31)
[2020-09-07] MEDS: Cholecalciferol (VIT D3) 1,000 unit TAB PO SCH (09:31)
[2020-09-07] MEDS: Sulfamethox/Trimethoprim DS TAB 800/160 mg PO SCH (09:34)
[2020-09-07 12:19] VITALS: BP 139/56
== END 2020-09-07 15:05 | disposition home or self-care (01) | DRG 177 ==
LOC: ED 09:00 → MED 14:32
PROVIDERS: ADMIT Internal Medicine; ATTEND Internal Medicine